=== PATIENT | male | born 1960 | race Caucasian/White ===

== ENCOUNTER 2017-10-01 19:03 | Inpatient (IN) | payer BC, OTHER ==
[~2017-10-01] VITALS: Ht 177.8 cm; Wt 97.2 kg
[2017-10-01] MEDS ORDERED: ONDANSETRON INJ 2 MG/ML 2 ML VIAL IV STA ×2 (19:23→21:18)
[2017-10-01] MEDS ORDERED: SODIUM CHLORIDE 0.9% 1000ML 1,000 ML IV STA (19:23)
[2017-10-01] MEDS: MoRPHine SULFATE 4 MG/ML 1 ML CARP\\VIAL IV PRN ×3 (19:41→23:24)
--- NOTE | 2017-10-01 19:48 | DIAGNOSTIC IMAGING REPORT ---
CHEST ONE VIEW PORTABLE CLINICAL HISTORY: Abdominal pain. COMPARISON STUDY: No previous studies for comparison. FINDINGS: A 1.7 cm calcification projecting over the superior aspect of the left humeral head may reflect calcific tendinitis of the left rotator cuff. There is no pneumothorax or pleural effusion. Mild left basilar opacity favors atelectasis. An azygos fissure is noted. There is no evidence for pulmonary edema. Cardiomediastinal silhouette is unremarkable. IMPRESSION: No acute cardiopulmonary findings. Electronically signed by: Rigo Mars M.D. 10/01/2017 7:47 PM Dictated Date/Time: 10/01/2017 7:46 PM
[2017-10-01 19:58] LABS: BASO % 0.1 %; BASO ABS # 0.01 K/uL (0-0.2); EOS % 0.1 %; EOS ABS # 0.02 K/uL (0-0.5); HEMATOCRIT 46.3 % (42-52); HEMOGLOBIN 16.1 g/dL (14.0-18.0); IG# 0.04 K/uL (0.00-0.02); LYMPH % 5.3 %; LYMPH ABS # 0.77 K/uL (1.2-3.4); MEAN CELL VOLUME 90.1 fL (80-100); MEAN CORPUSCULAR HEMOGLOBIN 31.3 pg (25-34); MEAN CORPUSCULAR HGB CONC 34.8 g/dl (32-36); MEAN PLATELET VOLUME 11.6 fL (7.4-10.4); MONO % 2.4 %; MONO ABS # 0.34 K/uL (0.11-0.59); NEUT % 91.8 %; NEUT ABS # 13.27 K/uL (1.4-6.5); PLATELET COUNT 173 K/uL (130-400); RED CELL DISTRIBUTION WIDTH CV 12.5 % (11.5-14.5); RED CELL DISTRIBUTION WIDTH SD 41.2 fL (36.4-46.3); WHITE BLOOD COUNT 14.45 K/uL (4.8-10.8)
[2017-10-01 20:15] LABS: ALBUMIN 4.5 gm/dl (3.4-5.0); ALKALINE PHOSPHATASE 131 U/L (45-117); ALT/SGPT 233 U/L (12-78); AST/SGOT 279 U/L (15-37); BLOOD UREA NITROGEN 17 mg/dl (7-18); CALCIUM 8.9 mg/dl (8.5-10.1); CARBON DIOXIDE 25 mmol/L (21-32); GLUCOSE 158 mg/dl (70-99); LIPASE 899 U/L (73-393); POTASSIUM 4.1 mmol/L (3.5-5.1); SODIUM 137 mmol/L (136-145); TOTAL PROTEIN 7.8 gm/dl (6.4-8.2)
--- NOTE | 2017-10-01 20:27 | DIAGNOSTIC IMAGING REPORT ---
CT OF THE ABDOMEN AND PELVIS WITHOUT CONTRAST CLINICAL HISTORY: Upper abdominal pain. COMPARISON STUDY: No previous studies for comparison. TECHNIQUE: Axial images of the abdomen and pelvis were obtained without IV contrast. Images were reviewed in the axial, sagittal, and coronal planes. A dose lowering technique was utilized adhering to the principles of ALARA. FINDINGS: Groundglass opacities within the lower lungs suggest atelectasis. Unenhanced images of the liver, spleen, adrenal glands and left kidney are normal. A 1.4 cm water attenuation right renal lesion is suboptimally assessed on this unenhanced exam but favors a cyst. 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 There are multiple gallstones within the gallbladder, several of which contain gas. There is minimal pericholecystic infiltration. There is no peripancreatic infiltration. There is no biliary or pancreatic ductal dilatation. Gas containing structures within the cystic duct and the common bile duct likely reflect a gas containing stones. A suspected gas containing diverticulum of the second portion the duodenum is noted. There is no evidence for a bowel obstruction. The appendix is normal. Caliber of small and large bowel is normal. There is no abdominal or pelvic lymphadenopathy. There are no suspicious osseous lesions. IMPRESSION: 1. Cholelithiasis with minimal pericholecystic infiltration. These findings raise the possibility of acute cholecystitis. 2. Small locules of gas within the cystic duct and common bile duct. The findings likely reflect gas within stones within the cystic duct and common bile duct. However, pneumobilia could appear similar. This could be correlated with obstructive liver function tests. 3. Suspected diverticulum of the second portion the duodenum. Electronically signed by: Rigo Mars M.D. 10/01/2017 8:26 PM Dictated Date/Time: 10/01/2017 8:10 PM
[2017-10-01] MEDS ORDERED: PIPERACILLIN/TAZOBACTAM 4.5 GM/100ML D5W IV STA (20:39)
--- NOTE | 2017-10-01 21:11 | DIAGNOSTIC IMAGING REPORT ---
ABDOMINAL ULTRASOUND, RIGHT UPPER QUADRANT HISTORY: Abdominal pain. COMPARISON: CT of the abdomen and pelvis October 01, 2017. FINDINGS: This exam is compromised by suboptimal penetration. No hepatic lesions are identified. There is no biliary ductal dilatation. Gallstones are noted within the gallbladder. No sonographic Garza sign was reported. Mild gallbladder wall thickening is noted. The wall measures 4 mm in thickness. There is no pericholecystic fluid. Pancreatic body is normal. Head and tail are obscured. There is no right hydronephrosis. IMPRESSION: 1. Cholelithiasis with mild gallbladder wall thickening. A hepatobiliary scan could be obtained as clinically indicated to evaluate for acute cholecystitis. 2. No biliary ductal dilatation. The gas/gas containing structures within the common bile duct shown on CT are not visualized on this exam due to suboptimal penetration. 3. Partially obscured pancreas. Electronically signed by: Rigo Mars M.D. 10/01/2017 9:09 PM Dictated Date/Time: 10/01/2017 9:06 PM
[2017-10-01] MEDS ORDERED: ATOR10TA82 PO (21:25)
--- NOTE | 2017-10-01 21:37 | EMERGENCY ROOM VISIT NOTE ---
History Report prepared by Slick: Deepak Rangel Under the Supervision of: Dr. Juan Richardson D.O. First contact with patient: 19:12 Chief Complaint: ABDOMINAL PAIN Stated Complaint: SEVERE ABD PAIN History of Present Illness The patient is a 56 year old male who presents to the Emergency Room with complaints of intermittent, severe, upper abdominal pain beginning two days ago. The patient states his symptoms started two days ago after he ate creamy lobster bisque soup. He reports he ate yesterday and did not show symptoms. The patient notes he was at work today and did not eat lunch. He states he had Chex mix and other snack foods. The patient reports his symptoms started shortly after eating, and he was taken to [facility]. He notes he felt fine by the time he got there, so he signed a paper to leave without treatment. The patient states he made an appointment to see his PCP tomorrow. He reports on his way home from the hospital, his symptoms started again. The patient notes it was exponentially worse, and he could not wait until tomorrow to be evaluated. He states lying on his right side and moving makes his symptoms worse. The patient reports the first two episodes made him feel like he was going to vomit, but he did not. He notes his current episode has lasted 2.5 hours, and it is continuous. The patient states he did vomit and experience chills. He denies a history of abdominal surgeries. The patient reports he has a history of high cholesterol. Source of History: patient Onset: two days ago Position: abdomen (upper) Symptom Intensity: severe Timing: intermittent Modifying Factors (Worsening): movement, other (lying on right side) Associated Symptoms: + chills, + vomiting Review of Systems See HPI for pertinent positives & negatives. A total of 10 systems reviewed and were otherwise negative. Past Medical & Surgical Medical Problems: (1) Hyperlipidemia Family History Patient reports no known family medical history. Social History Smoking Status: Never Smoker Marital Status: Housing Status: lives with significant other Occupation Status: employed Current/Historical Medications Scheduled Atorvastatin (Lipitor), 1 TAB PO DAILY Allergies Coded Allergies: No Known Allergies (Unverified , 10/01/17) Physical Exam Vital Signs Date Time Temp Pulse Resp B/P (MAP) Pulse Ox O2 Delivery O2 Flow Rate FiO2 10/01/17 20:29 37.0 10/01/17 19:08 36.3 82 20 146/73 95 Room Air Physical Exam CONSTITUTIONAL/VITAL SIGNS: Reviewed / noted above. GENERAL: Non-toxic in appearance. INTEGUMENTARY: Warm, dry, and [place]. HEAD: Normocephalic. EYES: without scleral icterus or trauma. ENT/OROPHARYNX: clear and moist. LYMPHADENOPATHY/NECK: Is supple without lymphadenopathy or meningismus. RESPIRATORY: Lungs clear and equal. CARDIOVASCULAR: Regular rate and rhythm. GI/ABDOMEN: Soft and tender to the RUQ and epigastric areas. No organomegaly or pulsatile mass. No rebound or guarding. Normal bowel sounds. EXTREMITIES: Warm and well perfused. BACK: No CVA tenderness. NEUROLOGICAL: Intact without focal deficits. PSYCHIATRIC: normal affect. MUSCULOSKELETAL: Normally developed with good muscle tone. Medical Decision & Procedures ER Provider Diagnostic Interpretation: Radiology results as stated below per my review and radiologist interpretation: ABDOMINAL ULTRASOUND, RIGHT UPPER QUADRANT HISTORY: Abdominal pain. COMPARISON: CT of the abdomen and pelvis October 01, 2017. FINDINGS: This exam is compromised by suboptimal penetration. No hepatic lesions are identified. There is no biliary ductal dilatation. Gallstones are noted within the gallbladder. No sonographic Garza sign was reported. Mild gallbladder wall thickening is noted. The wall measures 4 mm in thickness. There is no pericholecystic fluid. Pancreatic body is normal. Head and tail are obscured. There is no right hydronephrosis. IMPRESSION: 1. Cholelithiasis with mild gallbladder wall thickening. A hepatobiliary scan could be obtained as clinically indicated to evaluate for acute cholecystitis. 2. No biliary ductal dilatation. The gas/gas containing structures within the common bile duct shown on CT are not visualized on this exam due to suboptimal penetration. 3. Partially obscured pancreas. Electronically signed by: Rigo Mars M.D. 10/01/2017 9:09 PM Dictated Date/Time: 10/01/2017 9:06 PM CHEST ONE VIEW PORTABLE CLINICAL HISTORY: Abdominal pain. COMPARISON STUDY: No previous studies for comparison. FINDINGS: A 1.7 cm calcification projecting over the superior aspect of the left humeral head may reflect calcific tendinitis of the left rotator cuff. There is no pneumothorax or pleural effusion. Mild left basilar opacity favors atelectasis. An azygos fissure is noted. There is no evidence for pulmonary edema. Cardiomediastinal silhouette is unremarkable. IMPRESSION: No acute cardiopulmonary findings. Electronically signed by: Rigo Mars M.D. 10/01/2017 7:47 PM Dictated Date/Time: 10/01/2017 7:[address] OF THE ABDOMEN AND PELVIS WITHOUT CONTRAST CLINICAL HISTORY: Upper abdominal pain. COMPARISON STUDY: No previous studies for comparison. TECHNIQUE: Axial images of the abdomen and pelvis were obtained without IV contrast. Images were reviewed in the axial, sagittal, and coronal planes. A dose lowering technique was utilized adhering to the principles of ALARA. FINDINGS: Groundglass opacities within the lower lungs suggest atelectasis. Unenhanced images of the liver, spleen, adrenal glands and left kidney are normal. A 1.4 cm water attenuation right renal lesion is suboptimally assessed on this unenhanced exam but favors a cyst. 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 There are multiple gallstones within the gallbladder, several of which contain gas. There is minimal pericholecystic infiltration. There is no peripancreatic infiltration. There is no biliary or pancreatic ductal dilatation. Gas containing structures within the cystic duct and the common bile duct likely reflect a gas containing stones. A suspected gas containing diverticulum of the second portion the duodenum is noted. There is no evidence for a bowel obstruction. The appendix is normal. Caliber of small and large bowel is normal. There is no abdominal or pelvic lymphadenopathy. There are no suspicious osseous lesions. IMPRESSION: 1. Cholelithiasis with minimal pericholecystic infiltration. These findings raise the possibility of acute cholecystitis. 2. Small locules of gas within the cystic duct and common bile duct. The findings likely reflect gas within stones within the cystic duct and common bile duct. However, pneumobilia could appear similar. This could be correlated with obstructive liver function tests. 3. Suspected diverticulum of the second portion the duodenum. Electronically signed by: Rigo Mars M.D. 10/01/2017 8:26 PM Dictated Date/Time: 10/01/2017 8:10 PM Laboratory Results 10/01/17 19:35 Red Blood Count 5.14, Mean Corpuscular Volume 90.1, Mean Corpuscular Hemoglobin 31.3, Mean Corpuscular Hemoglobin Concent 34.8, Mean Platelet Volume 11.6, Neutrophils (%) (Auto) 91.8, Lymphocytes (%) (Auto) 5.3, Monocytes (%) (Auto) 2.4, Eosinophils (%) (Auto) 0.1, Basophils (%) (Auto) 0.1, Neutrophils # (Auto) 13.27, Lymphocytes # (Auto) 0.77, Monocytes # (Auto) 0.34, Eosinophils # (Auto) 0.02, Basophils # (Auto) 0.01 10/01/17 19:35 Test 10/01/17 19:35 10/01/17 21:26 White Blood Count 14.45 K/uL (4.8-10.8) Red Blood Count 5.14 M/uL (4.7-6.1) Hemoglobin 16.1 g/dL (14.0-18.0) Hematocrit 46.3 % (42-52) Mean Corpuscular Volume 90.1 fL (80-100) Mean Corpuscular Hemoglobin 31.3 pg (25-34) Mean Corpuscular Hemoglobin Concent 34.8 g/dl (32-36) Platelet Count 173 K/uL (130-400) Mean Platelet Volume 11.6 fL (7.4-10.4) Neutrophils (%) (Auto) 91.8 % Lymphocytes (%) (Auto) 5.3 % Monocytes (%) (Auto) 2.4 % Eosinophils (%) (Auto) 0.1 % Basophils (%) (Auto) 0.1 % Neutrophils # (Auto) 13.27 K/uL (1.4-6.5) Lymphocytes # (Auto) 0.77 K/uL (1.2-3.4) Monocytes # (Auto) 0.34 K/uL (0.11-0.59) Eosinophils # (Auto) 0.02 K/uL (0-0.5) Basophils # (Auto) 0.01 K/uL (0-0.2) RDW Standard Deviation 41.2 fL (36.4-46.3) RDW Coefficient of Variation 12.5 % (11.5-14.5) Immature Granulocyte % (Auto) 0.3 % Immature Granulocyte # (Auto) 0.04 K/uL (0.00-0.02) Anion Gap 9.0 mmol/L (3-11) Estimated GFR () 85.3 Estimated GFR (Non- 73.6 BUN/Creatinine Ratio 15.1 (10-20) Calcium Level 8.9 mg/dl (8.5-10.1) Total Bilirubin 1.8 mg/dl (0.2-1) Direct Bilirubin mg/dl (0-0.2) Aspartate Amino Transf (AST/SGOT) 279 U/L (15-37) Alanine Aminotransferase (ALT/SGPT) 233 U/L (12-78) Alkaline Phosphatase 131 U/L (45-117) Total Protein 7.8 gm/dl (6.4-8.2) Albumin 4.5 gm/dl (3.4-5.0) Lipase 899 U/L (73-393) Chemistry Specimen Hemolysis Laboratory results as stated above per my review. Medications Administered Medications (Trade) Dose Ordered Sig/Sahara Route Start Time Stop Time Status Last Admin Dose Admin Sodium Chloride 1,000 ml @ 999 mls/hr Q1H1M STAT IV 10/01/17 19:23 10/01/17 20:23 DC 10/01/17 19:41 999 MLS/HR Ondansetron HCl (Zofran Inj) 4 mg NOW STAT IV 10/01/17 19:23 10/01/17 19:25 DC 10/01/17 19:41 4 MG Morphine Sulfate (MoRPHine SULFATE INJ) 4 mg Q1H PRN IV 10/01/17 19:30 10/15/17 19:29 10/01/17 21:15 4 MG Piperacillin Sod/ Tazobactam Sod (Zosyn Iv) 4.5 gm NOW STAT IV 10/01/17 20:39 10/01/17 20:40 DC 10/01/17 21:21 4.5 GM Ondansetron HCl (Zofran Inj) 4 mg NOW STAT IV 10/01/17 21:18 10/01/17 21:19 DC 10/01/17 21:32 4 MG ED Course 1917: Previous medical records were reviewed. The patient was evaluated in room A02. A complete history and physical examination was performed. 1922: Ordered Ondansetron HCl 4mg IV, Sodium Chloride 1000 ml @ 999 mls/hr IV 1929: Ordered Morphine Sulfate 4mg IV 2038: Ordered Piperacillin Sod/Tazobactam Sod 4.5gm IV 2111: I [facility] the [facility] The patient will be evaluated for further management and care. 2113: On reevaluation, the patient is resting comfortably. I discussed the results and findings with him. He verbalized agreement of the treatment plan. 2117: Ordered Ondansetron HCl 4mg IV Medical Decision Differential considered: pancreatitis, hepatitis, or acute cholecystitis, AAA, UTI, pyelonephritis, kidney stones, appendicitis, diverticulitis, shingles, bowel obstruction mesenteric ischemia, intussusception, hernia, testicular torsion This is a 48-year-old male who presents to the ED with a chief complaint of right upper quadrant abdominal discomfort as well as nausea and vomiting. The patient states that he initially had some symptoms of couple of days ago after eating some lobster brisk. He reports that yesterday he felt okay. Today around 4:30 PM he developed right upper quadrant abdominal pain as well as nausea and vomiting. His pain is persistent since that time. He has some chills and riders on my evaluation as well as significant right upper quadrant tenderness and epigastric tenderness. A CT scan of the abdomen and pelvis reveals acute cholecystitis and pneumobilia. A chest x-ray did not show acute process. An ultrasound revealed some mild thickening of the gallbladder wall. The white blood cell count was 14.45. AST and ALT are elevated at 203 100 range. Alkaline phosphatase is 131. Lipase is 899. Total bilirubin is 1.8. The patient was treated with IV fluids, IV morphine, IV Zofran as well as IV Zosyn. I spoke with the hospice, who will see the patient for further inpatient evaluation and care. Medication Reconcilliation Current Medication List: was personally reviewed by me Blood Pressure Screening Patient's blood pressure: Elevated blood pressure Monitored by hospitalist. Consults Time Called: 2107 Consulting Physician: Dr. Weber [facility] Returned Call: 2111 I discussed the patient's case [facility] The patient will be evaluated for further management and care. Impression Primary Impression: Acute cholangitis Scribe Attestation The scribe's documentation has been prepared under my direction and personally reviewed by me in its entirety. I confirm that the note above accurately reflects all work, treatment, procedures, and medical decision making performed by me. Departure Information Dispostion Being Evaluated By Hospitalist Patient Instructions My [facility]
[2017-10-01] MEDS ORDERED: SODIUM CHLORIDE 0.9% 1000ML 1,000 ML IV ONE (23:00)
--- NOTE | 2017-10-01 23:00 | NUR ---
A: ASSESSED IN ED. A/O. AT BEDSIDE. PT ORIENTED TO CALL [facility]. SIGNED CODE W[employer] AND FALL AGREEMENT FORMS. REPORTS 3/10 CRAMPY ABD PAIN. DENIES N/V. SEE EMR FOR COMPLETE ADM ASSESSMENT. CALL [facility] IN REACH. TO BE ADMITTED TO SURGICAL UNIT. 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
[2017-10-01 23:14] VITALS: Ht 177.8 cm; Wt 97.2 kg
[2017-10-01] MEDS: ACETAMINOPHEN 500 MG TAB PO PRN (23:24)
--- NOTE | 2017-10-01 23:44 | Medical Consult ---
Consultation Date of Consultation: Oct 01, 2017. Attending Physician: Reason for Consultation: Biliary colic, cholelithiasis, elevated LFT's History of Present Illness Patient presents to the ED due to RUQ pain associated with nausea and one episode of vomiting. States his pain began on chris thad while he was at a family gathering. States they were eating an gu[place]ian meal which caused him to have the worst abdominal pain of his life localized in the RUQ. He reports nausea and one episode of vomiting with this incident. States an ambulance was called but by the time it arrived his symptoms had faded. They still took him to [facility] where he had a workup leading to a gallbladder etiology. At this time there was no evidence of acute cholecystitis and no elevated LFTs. He decided that he would like to go home and follow-up with this problem on his own time. Since he has had a couple of episodes of RUQ pain but they have passed. This morning he reports RUQ pain even worse than the pain he felt on chris thad. No nausea or vomiting with this episode. Reports fever and chills with this episode. At this point he decided it was time to get this evaluated further and came to the ED here. Denies back pain or shoulder pain. States the pain Starts in his RUQ and radiates slightly towards the epigastric area. Denies trouble urinating. States his stool has been loose lately but denies trouble moving his bowels. Denies any previous abdominal surgeries. Denies use of blood thinning or anticoagulant medications. PMHx significant for GERD. He has not tried to take any OTC medications for relief. Patient reports mild pain at this time and says he just asked the nurse for more morphine. Denies nausea at this time and has recently been given Zofran. Past Medical/Surgical History Medical Problems: (1) Acute cholangitis Status: Acute Family History FH: cancer FATHER (prostate CA age 79) BROTHER (colon CA age 50) Hypertension FATHER Social History Smoking Status: Former Smoker Marital Status: Housing Status: lives with significant other Occupation Status: employed Allergies Coded Allergies: No Known Allergies (Unverified , 10/01/17) Current Inpatient Medications Current Inpatient Medications Medications (Trade) Dose Ordered Sig/Sahara Route Start Time Stop Time Status Last Admin Dose Admin Morphine Sulfate (MoRPHine SULFATE INJ) 4 mg Q1H PRN IV 10/01/17 19:30 10/15/17 19:29 10/01/17 21:15 4 MG Pantoprazole Sodium 40 mg/ Syringe 10 ml @ 5 mls/min DAILY@11 IV 10/01/17 23:00 10/31/17 22:59 UNV Sodium Chloride 1,000 ml @ 125 mls/hr Q8H IV 10/01/17 23:00 10/31/17 22:59 UNV Ondansetron HCl (Zofran Inj) 4 mg Q6H PRN IV 10/01/17 23:00 10/31/17 22:59 Sodium Chloride 1,000 ml @ 999 mls/hr Q1H1M ONCE IV 10/01/17 23:00 10/02/17 00:00 10/01/17 23:12 999 MLS/HR Acetaminophen (Tylenol Tab) 500 mg Q6H PRN PO 10/01/17 23:00 10/31/17 22:59 Miscellaneous Information (Pharmacy Consult) 1 ea NOW STAT N/A 10/01/17 23:01 10/01/17 23:02 UNV Morphine Sulfate (MoRPHine SULFATE INJ) 2 mg Q4 PRN IV 10/01/17 23:15 10/15/17 23:14 UNV Metoclopramide HCl (Reglan Inj) 10 mg Q6H PRN IV 10/01/17 23:15 10/31/17 23:14 UNV Review of Systems Constitutional: + fever, + chills, No sweats, No weight loss Respiratory: No shortness of breath Cardiovascular: No chest pain Abdomen: + pain (RUQ), + nausea, + vomiting (with first episode of biliary colic), + problem reported (loose stools), No constipation Genitourinary - Male: No dysuria Integumentary: No rash, No color change Physical Exam Date Time Temp Pulse Resp B/P (MAP) Pulse Ox O2 Delivery O2 Flow Rate FiO2 10/01/17 22:40 132 10/01/17 22:37 37.7 134 14 120/61 93 Room Air 10/01/17 20:29 37.0 10/01/17 19:08 36.3 82 20 146/73 95 Room Air General Appearance: WD/WN, no apparent distress Head: normocephalic, atraumatic Eyes: normal inspection ENT: hearing grossly normal Neck: trachea midline Respiratory/Chest: no respiratory distress, no accessory muscle use Abdomen/GI: normal bowel sounds, no organomegaly, no pulsatile mass, + tenderness (RUQ radiating to epigastric area), + distended (RUQ) Neurologic/Psych: alert, normal mood/affect, oriented x 3 Skin: normal color, warm/dry, no rash Laboratory Results Last 24 Hours Test 10/01/17 19:35 10/01/17 21:26 10/01/17 22:58 10/01/17 23:07 White Blood Count 14.45 K/uL Red Blood Count 5.14 M/uL Hemoglobin 16.1 g/dL Hematocrit 46.3 % Mean Corpuscular Volume 90.1 fL Mean Corpuscular Hemoglobin 31.3 pg Mean Corpuscular Hemoglobin Concent 34.8 g/dl Platelet Count 173 K/uL Mean Platelet Volume 11.6 fL Neutrophils (%) (Auto) 91.8 % Lymphocytes (%) (Auto) 5.3 % Monocytes (%) (Auto) 2.4 % Eosinophils (%) (Auto) 0.1 % Basophils (%) (Auto) 0.1 % Neutrophils # (Auto) 13.27 K/uL Lymphocytes # (Auto) 0.77 K/uL Monocytes # (Auto) 0.34 K/uL Eosinophils # (Auto) 0.02 K/uL Basophils # (Auto) 0.01 K/uL RDW Standard Deviation 41.2 fL RDW Coefficient of Variation 12.5 % Immature Granulocyte % (Auto) 0.3 % Immature Granulocyte # (Auto) 0.04 K/uL Sodium Level 137 mmol/L Potassium Level 4.1 mmol/L Chloride Level 103 mmol/L Carbon Dioxide Level 25 mmol/L Anion Gap 9.0 mmol/L Blood Urea Nitrogen 17 mg/dl Creatinine 1.10 mg/dl Estimated GFR () 85.3 Estimated GFR (Non- 73.6 BUN/Creatinine Ratio 15.1 Random Glucose 158 mg/dl Calcium Level 8.9 mg/dl Total Bilirubin 1.8 mg/dl Direct Bilirubin mg/dl Aspartate Amino Transf (AST/SGOT) 279 U/L Alanine Aminotransferase (ALT/SGPT) 233 U/L Alkaline Phosphatase 131 U/L Total Protein 7.8 gm/dl Albumin 4.5 gm/dl Lipase 899 U/L Chemistry Specimen Hemolysis C-Reactive Protein < 0.29 mg/dl Assessment & Plan Cholelithiasis with mild gallbladder wall thickening and gas in the cystic duct and CBD, LFTs elevated suggesting stones in the cystic duct and CBD. Pain controlled, no N/V at this time. Admit per hospitalist service, NPO after midnight, IV Abx, IV fluids, IV zofran PRN for nausea, IV morphine PRN for pain. Recheck LFTs in AM - If LFTs do not improve, will consider GI consult for possible MRCP/ERCP. Findings discussed with Dr. Vinson. Surgery will continue to follow. Please contact with questions or concerns.
[2017-10-01] MEDS ORDERED: PIPERACILL/TAZOBAC CONSULT ACTIVE PRN (23:47)
--- NOTE | 2017-10-01 23:48 | History and Physical ---
History & Physical Date & Time of Service: Oct 01, 2017 at 23:11 Chief Complaint: Severe Abd Pain Primary Care Physician: Alexx Ronquillo M.D.(PAULA) History of Present Illness Source: patient, spouse, hospital records Pt is 56 y/o M with PMH dyslipidemia presented to ER with c/o abdominal pain. Pt states 2 days ago started with upper abdominal pain after eating lobster bisque. States pain lasted several hours then resolved. Ate yesterday and no abdominal pain. States today ate chex mix later developed some upper abdominal pain and RUQ pain described as "squeezing" with associated nausea and several episodes of vomiting. Reports this occurred while at work today and he was taken to [facility], once there his pain resolved and he denied evaluation. Pt states returned home and developed upper abdominal pain again with nausea and vomiting. Pt reports loose BM today. Takes omeprazole daily as reports hx RUQ "spasms" several years ago that were evaluated and pt reports no significant findings. Denies hx abdominal surgery. Denies known fever, hematemesis, melena, hematochezia, CORCORAN, syncope, vision changes, neck pain, CP, SOB, orthopnea, palpitations, cough, sore throat, choking, rhinorrhea, extremity weakness, extremity edema, rashes, urinary symptoms. Seen in ER. Initially afebrile, and Pulse 82. Pt then becomes febrile and tachy. WBC: 14, AST: 279, ALT: 233, Alk Phos: 131, Total bili: 1.8, Lipase: 899. Pt given zosyn, zofran, and morphine. Past Medical/Surgical History Medical Problems: (1) Hyperlipidemia Status: Chronic Surgical Problems: (1) Hx of colonoscopy Permanent Comment: 2013 - adenomatous polyp, diverticulosis - Dr Verma 2008- adenomatous polyp Status: Resolved (2) Hx of tonsillectomy Status: Resolved Family History FH: cancer FATHER (prostate CA age 79) BROTHER (colon CA age 50) Hypertension FATHER Social History Smoking Status: Former Smoker (quit 1983, smoked 1ppd x 13 years) Smokeless Tobacco Use: No Alcohol Use: 1 beer/1 glass of wine daily Drug Use: none Marital Status: Occupational Status: employed Allergies Coded Allergies: No Known Allergies (Unverified , 10/01/17) Home Medications Scheduled Atorvastatin (Lipitor), 1 TAB PO DAILY Review of Systems Constitutional: No weight loss Eyes: No worsening of vision, No eye pain, No redness ENT: No unusual epistaxis, No nasal symptoms, No sore throat Respiratory: No cough, No sputum, No wheezing, No shortness of breath, No dyspnea on exertion, No dyspnea at rest Cardiovascular: No chest pain, No orthopnea, No PND Abdomen: + problem reported (see HPI) Genitourinary - Male: No hematuria, No dysuria, No urinary frequency, No urinary urgency, No urinary hesitancy, No urinary retention Neurologic: No weakness, No numbness/tingling, No vertigo Endocrine: No excessive thirst, No excessive urination Hematologic / Lymphatic: No abnormal bleeding/bruising, No clotting problems, No night sweats Integumentary: No rash, No itch Physical Exam Vital Signs Date Time Temp Pulse Resp B/P (MAP) Pulse Ox O2 Delivery O2 Flow Rate FiO2 10/01/17 22:40 132 10/01/17 22:37 37.7 134 14 120/61 93 Room Air 10/01/17 20:29 37.0 10/01/17 19:08 36.3 82 20 146/73 95 Room Air General Appearance: WD/WN, + mild distress (pt lying supine in bed in position of comfort) Head: normocephalic, atraumatic Eyes: normal inspection, PERRL, sclerae normal ENT: hearing grossly normal, pharynx normal, + pertinent finding (dry mucous membranes) Neck: supple, no JVD, trachea midline Respiratory/Chest: chest non-tender, lungs clear, no respiratory distress, no accessory muscle use Cardiovascular: regular rate, rhythm, no murmur Abdomen/GI: normal bowel sounds, soft, + pertinent finding (+tenderness to palpation RUQ, epigastric, LUQ without guarding or rebound) Back: no CVA tenderness Extremities/Musculoskelatal: normal inspection, normal capillary refill, no pedal edema, normal range of motion Neurologic/Psych: alert, oriented x 3 Skin: normal color, warm/dry Diagnostics Laboratory Results Last 24 Hours Test 10/01/17 19:35 10/01/17 21:26 10/01/17 22:58 10/01/17 23:07 White Blood Count 14.45 K/uL Red Blood Count 5.14 M/uL Hemoglobin 16.1 g/dL Hematocrit 46.3 % Mean Corpuscular Volume 90.1 fL Mean Corpuscular Hemoglobin 31.3 pg Mean Corpuscular Hemoglobin Concent 34.8 g/dl Platelet Count 173 K/uL Mean Platelet Volume 11.6 fL Neutrophils (%) (Auto) 91.8 % Lymphocytes (%) (Auto) 5.3 % Monocytes (%) (Auto) 2.4 % Eosinophils (%) (Auto) 0.1 % Basophils (%) (Auto) 0.1 % Neutrophils # (Auto) 13.27 K/uL Lymphocytes # (Auto) 0.77 K/uL Monocytes # (Auto) 0.34 K/uL Eosinophils # (Auto) 0.02 K/uL Basophils # (Auto) 0.01 K/uL RDW Standard Deviation 41.2 fL RDW Coefficient of Variation 12.5 % Immature Granulocyte % (Auto) 0.3 % Immature Granulocyte # (Auto) 0.04 K/uL Sodium Level 137 mmol/L Potassium Level 4.1 mmol/L Chloride Level 103 mmol/L Carbon Dioxide Level 25 mmol/L Anion Gap 9.0 mmol/L Blood Urea Nitrogen 17 mg/dl Creatinine 1.10 mg/dl Estimated GFR () 85.3 Estimated GFR (Non- 73.6 BUN/Creatinine Ratio 15.1 Random Glucose 158 mg/dl Calcium Level 8.9 mg/dl Total Bilirubin 1.8 mg/dl Direct Bilirubin mg/dl Aspartate Amino Transf (AST/SGOT) 279 U/L Alanine Aminotransferase (ALT/SGPT) 233 U/L Alkaline Phosphatase 131 U/L Total Protein 7.8 gm/dl Albumin 4.5 gm/dl Lipase 899 U/L Chemistry Specimen Hemolysis C-Reactive Protein < 0.29 mg/dl Diagnostic Radiology CXR: IMPRESSION: No acute cardiopulmonary findings. U/S GALLBLADDER IMPRESSION: 1. Cholelithiasis with mild gallbladder wall thickening. A hepatobiliary scan could be obtained as clinically indicated to evaluate for acute cholecystitis. 2. No biliary ductal dilatation. The gas/gas containing structures within the common bile duct shown on CT are not visualized on this exam due to suboptimal penetration. 3. Partially obscured pancreas. CT ABD/PELVIS: IMPRESSION: 1. Cholelithiasis with minimal pericholecystic infiltration. These findings raise the possibility of acute cholecystitis. 2. Small locules of gas within the cystic duct and common bile duct. The findings likely reflect gas within stones within the cystic duct and common bile duct. However, pneumobilia could appear similar. This could be correlated with obstructive liver function tests. 3. Suspected diverticulum of the second portion the duodenum. Impression Assessment and Plan SEPSIS SECONDARY TO CHOLECYSTITIS Leukocytosis, transaminitis, febrile. Pt presented to ER with c/o upper abdominal and RUQ pain. Initially afebrile. Pt became febrile (37.7C), tachycardic (134) while in ER. WBC: 14. Total bili: 1.8, AST: 279, ALT:233, Alk Phos: 131, Lipase: 131. U/S RUQ: cholelithiasis with gallbladder wall thickening , no ductal dilation. CT ABD/PELVIS: Cholelithiasis with minimal pericholecystic infiltration. Small locules of gas within the cystic duct and common bile duct. He was treated with morphine, zofran, zosyn. -lactic acid added -blood cultures added -npo -zosyn -IVF -zofran prn nausea -morphine prn pain -PPI IV -general surgery consult - aware and will be in to see pt -CBC, CMP, liver profile, lipase in am DVT PROPHYLAXIS -SCDs DISPOSITION -admit tele -Full Code -Follows with Dr Ronquillo for routine care Pt was seen with Dr Weber. See addendum ATTENDING ADDENDUM care coordinated with SAIRA Contreras please refer to her notes for full details, I agree with her notes patient seen and examined, records reviewed by myself as well on exam, patient seen resting in bed, alert, not in distress reports RUQ pain is improving denies chest pain, dyspnea, dizziness no other symptoms VS noted and reviewed oriented x 3, not in distress, speaks in sentences with no effort nor accessory muscle use normal rate, regular rhythm, no murmurs clear breath sounds bilaterally non distended, soft,non distended, (+) RUQ tenderness no bipedal edema, erythema, warmth no neuro deficits WBC 14k Total ag 1.8 AST/ALT 279/233 CT abdomen: cholelithiasis, GB thickening ASSESSMENT/PLAN> SEPSIS, POSSIBLE ACUTE CHOLANGITIS, CHOLECYSTITIS - ff up cultures ff up lactic acid levels - Gen Surg and GI consulted - NPO, IV NSS empiric Zosyn IV PRN Morphine SINUS TACHYCARDIA - likely from fever, underlying infection, pain, dehydration - management as noted above other diagnoses and plan of care as per SAIRA Contreras's notes Uziel Weber MD Level of Care Telemetry Resuscitation Status FULL RESUSCITATION VTE Prophylaxis VTE Risk Assessment Done? Y/N: Yes Risk Level: Moderate Given or contraindicated: SCD's Additional Copies To Alexx Ronquillo M.D. (HUGH)
[2017-10-01 23:52] LABS: PTT PATIENT 24.3 SECONDS (21.0-31.0)
[2017-10-02] VITALS (9 sets, daily range): BP systolic 101–143; BP diastolic 60–87; PULSE 83–143; TEMP 36.6–38.4; O2SAT 90–97
--- NOTE | 2017-10-02 00:10 | NUR ---
PT ARRIVED VIA LITTER FROM ED TO ROOM 230-1. AMBULATED FROM LITTER TO BED W/ STEADY GAIT. DENIES PAIN, SOB, N/V AT THIS TIME. VSS, SEE EMR. MONITOR LEADS APPLIED, GOWN CHANGED, PT WEIGHED. NO DISTRESS EVIDENT. ORIENTED TO CALL ENNIS, LIGHT/BED CONTROLS. SIDE RAILS UP, BED IN LOWEST POSITION. CARE ASSUMED BY PRIMARY RNADELINE.
[2017-10-02] MEDS ORDERED: SODIUM CHLORIDE 0.9% 1000ML 1,000 ML IV SCH (00:30)
[2017-10-02] MEDS: PIPERACILL/TAZOBAC IV 3.375 GM in DEXTROSE 5% 100ML IV SCH ×3 (01:24→15:09)
[2017-10-02] MEDS ORDERED: SODIUM CHLORIDE 0.9% 500ML 500 ML IV SCH (01:30)
[2017-10-02] MEDS: PANTOprazole INJ 40 MG in SYRINGE 0 ML IV SCH ×3 (02:36→19:50)
[2017-10-02] MEDS: MoRPHine SULFATE 2 MG/ML CARP IV PRN ×2 (03:38→07:44)
--- NOTE | 2017-10-02 04:00 | NUR ---
resting in bed,independent in room,previously medicated for pain,call velasquez in reach,will continue to monitor
[2017-10-02 05:42] LABS: BASO % 0.1 %; BASO ABS # 0.01 K/uL (0-0.2); EOS % 0.1 %; EOS ABS # 0.01 K/uL (0-0.5); HEMATOCRIT 38.5 % (42-52); HEMOGLOBIN 13.3 g/dL (14.0-18.0); IG# 0.06 K/uL (0.00-0.02); LYMPH % 2.8 %; LYMPH ABS # 0.48 K/uL (1.2-3.4); MEAN CORPUSCULAR HEMOGLOBIN 31.1 pg (25-34); MEAN CORPUSCULAR HGB CONC 34.5 g/dl (32-36); MONO % 5.5 %; MONO ABS # 0.95 K/uL (0.11-0.59); NEUT % 91.2 %; NEUT ABS # 15.72 K/uL (1.4-6.5); PLATELET COUNT 149 K/uL (130-400); RED CELL DISTRIBUTION WIDTH CV 12.9 % (11.5-14.5); RED CELL DISTRIBUTION WIDTH SD 41.8 fL (36.4-46.3); WHITE BLOOD COUNT 17.23 K/uL (4.8-10.8)
[2017-10-02] MEDS: ONDANSETRON INJ 2 MG/ML 2 ML VIAL IV PRN (06:00)
[2017-10-02 06:19] LABS: ALBUMIN 3.2 gm/dl (3.4-5.0); CALCIUM 7.8 mg/dl (8.5-10.1); CREATININE 1.47 mg/dl (0.60-1.40); POTASSIUM 4.1 mmol/L (3.5-5.1)
[2017-10-02 06:25] LABS: TOTAL PROTEIN 5.9 gm/dl (6.4-8.2)
[2017-10-02] MEDS: METOCLOPRAMIDE HCL INJ 5 MG/ML 2 ML VIAL IV PRN (07:44)
[2017-10-02] MEDS: LACTATED RINGER'S 1000ML 1,000 ML IV SCH ×4 (07:47→19:50)
[2017-10-02] MEDS ORDERED: INDOMETHACIN 50 MG SUPP PR ONE (09:15)
--- NOTE | 2017-10-02 09:25 | NUR ---
Pt resting in bed comfortably. States he has nausea and pain in right abdomen. Medicated with PRN Morphine and Reglan. Sinus tach 105 on monitor. Lungs clear on RA. Refer to EMR for per assessment nurse and vitals. Call velasquez within reach. Will continue to monitor
--- NOTE | 2017-10-02 09:26 | Surgery Progress Note ---
Surgery Progress Note Date of Service Oct 02, 2017. Subjective still having some pain but much improved since admission. still some mild nausea. Objective Vital Signs: Date Time Temp Pulse Resp B/P (MAP) Pulse Ox O2 Delivery O2 Flow Rate FiO2 10/02/17 08:00 37.1 119 18 129/87 (101) 93 Room Air 10/02/17 04:03 37.4 18 101/60 (74) 93 10/02/17 04:00 Room Air 10/02/17 00:12 38.4 143 18 118/69 (85) 93 Room Air 10/01/17 23:57 37.5 136 14 111/74 92 10/01/17 23:14 Room Air 10/01/17 22:40 132 10/01/17 22:37 37.7 134 14 120/61 93 Room Air 10/01/17 20:29 37.0 10/01/17 19:08 36.3 82 20 146/73 95 Room Air General Appearance: no apparent distress Respiratory/Chest: no respiratory distress, no accessory muscle use Abdomen: soft, + tenderness Extremities: no pedal edema Laboratory Results: Results Past 24 Hours Test 10/01/17 19:35 10/01/17 21:26 10/01/17 23:31 10/02/17 05:27 Range/Units White Blood Count 14.45 17.23 4.8-10.8 K/uL Red Blood Count 5.14 4.28 4.7-6.1 M/uL Hemoglobin 16.1 13.3 14.0-18.0 g/dL Hematocrit 46.3 38.5 42-52 % Mean Corpuscular Volume 90.1 90.0 80-100 fL Mean Corpuscular Hemoglobin 31.3 31.1 25-34 pg Mean Corpuscular Hemoglobin Concent 34.8 34.5 32-36 g/dl Platelet Count 173 149 130-400 K/uL Mean Platelet Volume 11.6 11.0 7.4-10.4 fL Neutrophils (%) (Auto) 91.8 91.2 % Lymphocytes (%) (Auto) 5.3 2.8 % Monocytes (%) (Auto) 2.4 5.5 % Eosinophils (%) (Auto) 0.1 0.1 % Basophils (%) (Auto) 0.1 0.1 % Neutrophils # (Auto) 13.27 15.72 1.4-6.5 K/uL Lymphocytes # (Auto) 0.77 0.48 1.2-3.4 K/uL Monocytes # (Auto) 0.34 0.95 0.11-0.59 K/uL Eosinophils # (Auto) 0.02 0.01 0-0.5 K/uL Basophils # (Auto) 0.01 0.01 0-0.2 K/uL RDW Standard Deviation 41.2 41.8 36.4-46.3 fL RDW Coefficient of Variation 12.5 12.9 11.5-14.5 % Immature Granulocyte % (Auto) 0.3 0.3 % Immature Granulocyte # (Auto) 0.04 0.06 0.00-0.02 K/uL Sodium Level 137 140 136-145 mmol/L Potassium Level 4.1 4.1 3.5-5.1 mmol/L Chloride Level 103 108 98-107 mmol/L Carbon Dioxide Level 25 26 21-32 mmol/L Anion Gap 9.0 6.0 3-11 mmol/L Blood Urea Nitrogen 17 15 7-18 mg/dl Creatinine 1.10 1.47 0.60-1.40 mg/dl Estimated GFR () 85.3 60.1 Estimated GFR (Non- 73.6 51.8 BUN/Creatinine Ratio 15.1 10.5 10-20 Random Glucose 158 127 70-99 mg/dl Calcium Level 8.9 7.8 8.5-10.1 mg/dl Total Bilirubin 1.8 2.9 0.2-1 mg/dl Direct Bilirubin 2.1 0-0.2 mg/dl Aspartate Amino Transf (AST/SGOT) 279 443 15-37 U/L Alanine Aminotransferase (ALT/SGPT) 233 578 12-78 U/L Alkaline Phosphatase 131 102 45-117 U/L Total Protein 7.8 5.9 6.4-8.2 gm/dl Albumin 4.5 3.2 3.4-5.0 gm/dl Lipase 899 2914 73-393 U/L Chemistry Specimen Hemolysis C-Reactive Protein < 0.29 0-0.29 mg/dl Prothrombin Time 10.7 9.0-12.0 SECONDS Prothromb Time International Ratio 1.0 0.9-1.1 Activated Partial Thromboplast Time 24.3 21.0-31.0 SECONDS Partial Thromboplastin Ratio 0.9 Lactic Acid Level 1.7 0.4-2.0 mmol/L Est Creatinine Clear Calc Drug Dose 64.1 ml/min Globulin 2.7 2.5-4.0 gm/dl Albumin/Globulin Ratio 1.2 0.9-2 Microbiology Results 10/01/17 Blood Culture, Received Pending 10/01/17 Blood Culture, Received Pending Assessment & Plan 10/02/17 clinically improving LFT's increased today. GI on board/planning ERCP if ERCP competed today, will plan lap leeanna tomorrow discussed options/risks ( bleeding/infection/DVT/PE/OK/injury to another organ such as bile ducts or bowel etc...) questions anwered
[2017-10-02] MEDS ORDERED: NAPR1TAB9 PO (10:19)
[2017-10-02] MEDS ORDERED: OMEP40CA41 PO (10:19)
[2017-10-02] MEDS ORDERED: DIPH25CA65 PO (10:19)
[2017-10-02] MEDS ORDERED: OMEP20CA9 PO (10:21)
[2017-10-02] MEDS ORDERED: LPT/40 PO (10:22)
--- NOTE | 2017-10-02 10:33 | Progress Note ---
Medicine Progress Note Date & Time of Visit: Oct 02, 2017 at 10:23. Subjective 56 yo M with intermittent RUQ pain and episodes of vomiting admitted for acute cholecystitis. Reports pain this morning is controlled with the morphine. RUQ pain persists. Some fever overnight. Objective Last 8 Hrs Date Time Temp Pulse Resp B/P (MAP) Pulse Ox O2 Delivery O2 Flow Rate FiO2 10/02/17 08:00 37.1 119 18 129/87 (101) 93 Room Air 10/02/17 08:00 93 Room Air 10/02/17 04:03 37.4 18 101/60 (74) 93 10/02/17 04:00 Room Air Physical Exam: GEN: WNWD, in no acute distress, alert and appropriate, able to move around the bed with ease. Not ill-appearing. HEENT: NC/AT, pupils are round and equal bilaterally, normal sclerae, MMM CARDIO: reg rate, S1/2 heard without m/g/r LUNGS: CTA bilaterally, no crackles, rales or wheezes, good diaphragmatic excursion ABD: soft, RUQ tenderness, non-distended, no rebound or guarding, +BS EXTREMITY: RP and DP palpable 2+ bilat, no LE swelling or edema, extremities are warm and well-perfused NEURO: CN 2-12 grossly intact, no gross focal deficits. MUSC: 5/5 strength throughout, no gross focal deficits SKIN: warm and dry Laboratory Results: 10/02/17 05:27 Red Blood Count 4.28, Mean Corpuscular Volume 90.0, Mean Corpuscular Hemoglobin 31.1, Mean Corpuscular Hemoglobin Concent 34.5, Mean Platelet Volume 11.0, Neutrophils (%) (Auto) 91.2, Lymphocytes (%) (Auto) 2.8, Monocytes (%) (Auto) 5.5, Eosinophils (%) (Auto) 0.1, Basophils (%) (Auto) 0.1, Neutrophils # (Auto) 15.72, Lymphocytes # (Auto) 0.48, Monocytes # (Auto) 0.95, Eosinophils # (Auto) 0.01, Basophils # (Auto) 0.01 10/02/17 05:27 Test 10/01/17 19:35 10/01/17 21:26 10/01/17 23:31 10/02/17 05:27 Chemistry Specimen Hemolysis C-Reactive Protein < 0.29 mg/dl (0-0.29) Prothrombin Time 10.7 SECONDS (9.0-12.0) Prothromb Time International Ratio 1.0 (0.9-1.1) Activated Partial Thromboplast Time 24.3 SECONDS (21.0-31.0) Partial Thromboplastin Ratio 0.9 Lactic Acid Level 1.7 mmol/L (0.4-2.0) White Blood Count 17.23 K/uL (4.8-10.8) Red Blood Count 4.28 M/uL (4.7-6.1) Hemoglobin 13.3 g/dL (14.0-18.0) Hematocrit 38.5 % (42-52) Mean Corpuscular Volume 90.0 fL (80-100) Mean Corpuscular Hemoglobin 31.1 pg (25-34) Mean Corpuscular Hemoglobin Concent 34.5 g/dl (32-36) Platelet Count 149 K/uL (130-400) Mean Platelet Volume 11.0 fL (7.4-10.4) Neutrophils (%) (Auto) 91.2 % Lymphocytes (%) (Auto) 2.8 % Monocytes (%) (Auto) 5.5 % Eosinophils (%) (Auto) 0.1 % Basophils (%) (Auto) 0.1 % Neutrophils # (Auto) 15.72 K/uL (1.4-6.5) Lymphocytes # (Auto) 0.48 K/uL (1.2-3.4) Monocytes # (Auto) 0.95 K/uL (0.11-0.59) Eosinophils # (Auto) 0.01 K/uL (0-0.5) Basophils # (Auto) 0.01 K/uL (0-0.2) RDW Standard Deviation 41.8 fL (36.4-46.3) RDW Coefficient of Variation 12.9 % (11.5-14.5) Immature Granulocyte % (Auto) 0.3 % Immature Granulocyte # (Auto) 0.06 K/uL (0.00-0.02) Anion Gap 6.0 mmol/L (3-11) Est Creatinine Clear Calc Drug Dose 64.1 ml/min Estimated GFR () 60.1 Estimated GFR (Non- 51.8 BUN/Creatinine Ratio 10.5 (10-20) Calcium Level 7.8 mg/dl (8.5-10.1) Total Bilirubin 2.9 mg/dl (0.2-1) Direct Bilirubin 2.1 mg/dl (0-0.2) Aspartate Amino Transf (AST/SGOT) 443 U/L (15-37) Alanine Aminotransferase (ALT/SGPT) 578 U/L (12-78) Alkaline Phosphatase 102 U/L (45-117) Total Protein 5.9 gm/dl (6.4-8.2) Albumin 3.2 gm/dl (3.4-5.0) Globulin 2.7 gm/dl (2.5-4.0) Albumin/Globulin Ratio 1.2 (0.9-2) Lipase 2914 U/L (73-393) Date/Time Source Procedure Growth Status 10/01/17 23:31 Blood Blood Culture Pending Received Last 24 Hours Test 10/01/17 19:35 10/01/17 21:26 10/01/17 23:31 10/02/17 05:27 White Blood Count 14.45 K/uL 17.23 K/uL Red Blood Count 5.14 M/uL 4.28 M/uL Hemoglobin 16.1 g/dL 13.3 g/dL Hematocrit 46.3 % 38.5 % Mean Corpuscular Volume 90.1 fL 90.0 fL Mean Corpuscular Hemoglobin 31.3 pg 31.1 pg Mean Corpuscular Hemoglobin Concent 34.8 g/dl 34.5 g/dl Platelet Count 173 K/uL 149 K/uL Mean Platelet Volume 11.6 fL 11.0 fL Neutrophils (%) (Auto) 91.8 % 91.2 % Lymphocytes (%) (Auto) 5.3 % 2.8 % Monocytes (%) (Auto) 2.4 % 5.5 % Eosinophils (%) (Auto) 0.1 % 0.1 % Basophils (%) (Auto) 0.1 % 0.1 % Neutrophils # (Auto) 13.27 K/uL 15.72 K/uL Lymphocytes # (Auto) 0.77 K/uL 0.48 K/uL Monocytes # (Auto) 0.34 K/uL 0.95 K/uL Eosinophils # (Auto) 0.02 K/uL 0.01 K/uL Basophils # (Auto) 0.01 K/uL 0.01 K/uL RDW Standard Deviation 41.2 fL 41.8 fL RDW Coefficient of Variation 12.5 % 12.9 % Immature Granulocyte % (Auto) 0.3 % 0.3 % Immature Granulocyte # (Auto) 0.04 K/uL 0.06 K/uL Sodium Level 137 mmol/L 140 mmol/L Potassium Level 4.1 mmol/L 4.1 mmol/L Chloride Level 103 mmol/L 108 mmol/L Carbon Dioxide Level 25 mmol/L 26 mmol/L Anion Gap 9.0 mmol/L 6.0 mmol/L Blood Urea Nitrogen 17 mg/dl 15 mg/dl Creatinine 1.10 mg/dl 1.47 mg/dl Estimated GFR () 85.3 60.1 Estimated GFR (Non- 73.6 51.8 BUN/Creatinine Ratio 15.1 10.5 Random Glucose 158 mg/dl 127 mg/dl Calcium Level 8.9 mg/dl 7.8 mg/dl Total Bilirubin 1.8 mg/dl 2.9 mg/dl Direct Bilirubin mg/dl 2.1 mg/dl Aspartate Amino Transf (AST/SGOT) 279 U/L 443 U/L Alanine Aminotransferase (ALT/SGPT) 233 U/L 578 U/L Alkaline Phosphatase 131 U/L 102 U/L Total Protein 7.8 gm/dl 5.9 gm/dl Albumin 4.5 gm/dl 3.2 gm/dl Lipase 899 U/L 2914 U/L Chemistry Specimen Hemolysis C-Reactive Protein < 0.29 mg/dl Prothrombin Time 10.7 SECONDS Prothromb Time International Ratio 1.0 Activated Partial Thromboplast Time 24.3 SECONDS Partial Thromboplastin Ratio 0.9 Lactic Acid Level 1.7 mmol/L Est Creatinine Clear Calc Drug Dose 64.1 ml/min Globulin 2.7 gm/dl Albumin/Globulin Ratio 1.2 Date/Time Source Procedure Growth Status 10/01/17 23:31 Blood Blood Culture Pending Received 10/01/17 23:31 Blood Blood Culture Pending Received Assessment & Plan 56 yo M with intermittent RUQ pain and episodes of vomiting admitted for acute cholecystitis. Reports pain this morning is controlled with the morphine. RUQ pain persists. Some fever overnight. 1. Sepsis 2/2 acute cholecystitis-General Surg consulted and Dr. Vinson prefers an ERCP per GI first which is reported to happen today. Worsening transaminitis on labs, fever overnight, pain controlled with current medications. Pt is NPO. Cont Zosyn and IVF. Cont Morphine and Zofran PRN. Lactate normal. Awaiting definitive source control. Considering cholecystectomy in am. 2. PARAMJIT 2/2 sepsis/dehydration-IVF, cont to monitor PRP. 3. Leukocytosis 2/2 infection. 4. Hyperlipidemia-cont Lipitor 5. Chronic L shoulder rotator cuff tendonitis-pt has chronic insomnia from chronic pain in his shoulder and takes Benadryl and Naprosyn 220mg PO x 1 tab every night for pain control and to help him sleep. Benadryl was ordered PRN and no NSAIDs in setting of upcoming procedure. 6. GERD-cont PPI DVT PROPHYLAXIS: SCDs in setting of upcoming procedures Full Code Dispo: telemetry DO Babita Burton Hospitalist Consultants: General Surgery-[facility] Current Inpatient Medications: Current Inpatient Medications Medications (Trade) Dose Ordered Sig/[place] Route Start Time Stop Time Status Last Admin Dose Admin Pantoprazole Sodium 40 mg/ Syringe 10 ml @ 5 mls/min DAILY@11 IV 10/01/17 23:00 10/31/17 22:59 10/02/17 02:36 5 MLS/MIN Ondansetron HCl (Zofran Inj) 4 mg Q6H PRN IV 10/01/17 23:00 10/31/17 22:59 10/02/17 06:00 4 MG Acetaminophen (Tylenol Tab) 500 mg Q6H PRN PO 10/01/17 23:00 10/31/17 22:59 10/01/17 23:24 500 MG Piperacillin Sod/ Tazobactam Sod (Consult) 1 ea DAILY PRN N/A 10/01/17 23:47 10/31/17 23:46 Morphine Sulfate (MoRPHine SULFATE INJ) 2 mg Q4 PRN IV 10/01/17 23:15 10/15/17 23:14 10/02/17 07:44 2 MG Metoclopramide HCl (Reglan Inj) 10 mg Q6H PRN IV 10/01/17 23:15 10/31/17 23:14 10/02/17 07:44 10 MG Piperacillin Sod/ Tazobactam Sod 3.375 gm/Dextrose 115 ml @ 28.75 mls/ hr Q8H IV 10/02/17 00:00 10/12/17 00:00 10/02/17 07:47 28.75 MLS/HR Lactated Ringer's 1,000 ml @ 200 mls/hr Q5H IV 10/02/17 07:00 11/01/17 06:59 10/02/17 07:47 200 MLS/HR
[2017-10-02] MEDS ORDERED: ONDANSETRON INJ 2 MG/ML 2 ML VIAL ONE (10:40)
[2017-10-02] MEDS ORDERED: LIDOCAINE HCL 2% 2 ML VIAL (20MG/ML) ONE (10:40)
[2017-10-02] MEDS ORDERED: FENTANYL CITRATE INJ 50 MCG/1 ML 2 ML VIAL ONE (10:40)
[2017-10-02] MEDS ORDERED: ROCURONIUM BROMIDE 10 MG/ML 5 ML VIAL IV ONE (10:40)
[2017-10-02] MEDS ORDERED: DEXAMETHASONE SOD INJ 4 MG/ML VIAL ONE (10:40)
[2017-10-02] MEDS ORDERED: SUCCINYLCHOLINE CHLORIDE 20 MG/ML 10 ML VIAL IV ONE (10:40)
[2017-10-02] MEDS ORDERED: PROPOFOL IV EMULSION 10 MG/ML 20 ML VIAL IV ONE (10:40)
--- NOTE | 2017-10-02 11:01 | Gastrointestinal Consultation ---
Gastrointestinal Consultation Date of Consultation: Oct 02, 2017 Attending Physician: Lisbet Padgett Consulting Physician: Carmine Interiano Reason for Consultation: Possible acute cholangitis History of Present Illness Patient is a 56 year old male w PMHx of dyslipidemia, benign colon polyps who presented to ED w c/o RUQ abd pain that's been present since . He was having lobster bisque [place], had sharp RUQ pain that's radiating towards epigastric w associated mild nausea. [place] better but then yesterday went to work, and the pain started again, severe enough for coworkers to call ambulance to take him to [facility]. He refused medical care and had no workup at [place]. Went home and last night pain started again, this time he had vomiting. He had chills last night as well. Upon eval in [facility], VS initially stable but then became febrile and tachycardic. WBC 14K, LFTs up: T bili 1.8, AST 279, ALT 233, AP 131. Lipase 899. This morning LFTs and Lipase increased. He reports urine turned dark. Abd pain still present. His imaging studies w u/s and CT abd/pelvis concerning for cholelithiasis with acute cholecystitis, and possible gallstones in cystic duct and CBD. He had been started on Zosyn, IVF resuscitation, kept NPO. Surgery service saw him overnight , plan for possible cholecystectomy once ERCP completed. Past Medical/Surgical History Medical Problems: (1) Acute cholangitis Status: Acute Past Medical History: See above Past Surgical History: Tonsillectomy Family History FH: cancer FATHER (prostate CA age 79) BROTHER (colon CA age 50) Hypertension FATHER Social History Smoking Status: Former Smoker (quit 1983, smoked 1ppd x 13 years) Alcohol Use: none Drug Use: none Marital Status: Housing Status: lives with significant other Occupation Status: employed Allergies Coded Allergies: No Known Allergies (Unverified , 10/01/17) Current Medications Home Meds and Scripts Medications Dose Route/Sig Max Daily Dose Days Date Category Lipitor (Atorvastatin) 40 Mg Tab 40 Mg PO DAILY 10/02/17 Reported Prilosec (Omeprazole) 20 Mg Cap 1 Cap PO DAILY 30 10/02/17 Reported Aleve (Naproxen) 220 Mg Tab 220 Mg PO HS 12/27/17 Reported Benadryl Allergy (Diphenhydramine Hcl) 25 Mg Cap 1 Cap PO HS 30 10/02/17 Reported Review of Systems Constitutional: + fever, + chills Respiratory: No cough, No shortness of breath Cardiac: No chest pain Abdomen: + see HPI, + pain, + nausea, + dark urine, No GI bleeding Skin: No rash, No itch, No jaundice Physical Exam Date Time Temp Pulse Resp B/P (MAP) Pulse Ox O2 Delivery O2 Flow Rate FiO2 10/02/17 08:00 37.1 119 18 129/87 (101) 93 Room Air 10/02/17 08:00 93 Room Air 10/02/17 04:03 37.4 18 101/60 (74) 93 10/02/17 04:00 Room Air 10/02/17 00:12 38.4 143 18 118/69 (85) 93 Room Air 10/01/17 23:57 37.5 136 14 111/74 92 10/01/17 23:14 Room Air 10/01/17 22:40 132 10/01/17 22:37 37.7 134 14 120/61 93 Room Air 10/01/17 20:29 37.0 10/01/17 19:08 36.3 82 20 146/73 95 Room Air General Appearance: WD/WN, no apparent distress, + obese Eyes: normal inspection, PERRL, EOMI Neck: supple, trachea midline Respiratory/Chest: normal breath sounds, no respiratory distress, no accessory muscle use Cardiovascular: regular rate, rhythm, no gallop Abdomen: normal bowel sounds, soft, + tenderness (RUQ) Extremities: normal inspection, no pedal edema, no calf tenderness Neurologic/Psych: alert, normal mood/affect, oriented x 3 Skin: normal color, no jaundice, no rash Laboratory Results Last 24 Hours Test 10/01/17 19:35 10/01/17 21:26 10/01/17 23:31 10/02/17 05:27 White Blood Count 14.45 K/uL 17.23 K/uL Red Blood Count 5.14 M/uL 4.28 M/uL Hemoglobin 16.1 g/dL 13.3 g/dL Hematocrit 46.3 % 38.5 % Mean Corpuscular Volume 90.1 fL 90.0 fL Mean Corpuscular Hemoglobin 31.3 pg 31.1 pg Mean Corpuscular Hemoglobin Concent 34.8 g/dl 34.5 g/dl Platelet Count 173 K/uL 149 K/uL Mean Platelet Volume 11.6 fL 11.0 fL Neutrophils (%) (Auto) 91.8 % 91.2 % Lymphocytes (%) (Auto) 5.3 % 2.8 % Monocytes (%) (Auto) 2.4 % 5.5 % Eosinophils (%) (Auto) 0.1 % 0.1 % Basophils (%) (Auto) 0.1 % 0.1 % Neutrophils # (Auto) 13.27 K/uL 15.72 K/uL Lymphocytes # (Auto) 0.77 K/uL 0.48 K/uL Monocytes # (Auto) 0.34 K/uL 0.95 K/uL Eosinophils # (Auto) 0.02 K/uL 0.01 K/uL Basophils # (Auto) 0.01 K/uL 0.01 K/uL RDW Standard Deviation 41.2 fL 41.8 fL RDW Coefficient of Variation 12.5 % 12.9 % Immature Granulocyte % (Auto) 0.3 % 0.3 % Immature Granulocyte # (Auto) 0.04 K/uL 0.06 K/uL Sodium Level 137 mmol/L 140 mmol/L Potassium Level 4.1 mmol/L 4.1 mmol/L Chloride Level 103 mmol/L 108 mmol/L Carbon Dioxide Level 25 mmol/L 26 mmol/L Anion Gap 9.0 mmol/L 6.0 mmol/L Blood Urea Nitrogen 17 mg/dl 15 mg/dl Creatinine 1.10 mg/dl 1.47 mg/dl Estimated GFR () 85.3 60.1 Estimated GFR (Non- 73.6 51.8 BUN/Creatinine Ratio 15.1 10.5 Random Glucose 158 mg/dl 127 mg/dl Calcium Level 8.9 mg/dl 7.8 mg/dl Total Bilirubin 1.8 mg/dl 2.9 mg/dl Direct Bilirubin mg/dl 2.1 mg/dl Aspartate Amino Transf (AST/SGOT) 279 U/L 443 U/L Alanine Aminotransferase (ALT/SGPT) 233 U/L 578 U/L Alkaline Phosphatase 131 U/L 102 U/L Total Protein 7.8 gm/dl 5.9 gm/dl Albumin 4.5 gm/dl 3.2 gm/dl Lipase 899 U/L 2914 U/L Chemistry Specimen Hemolysis C-Reactive Protein < 0.29 mg/dl Prothrombin Time 10.7 SECONDS Prothromb Time International Ratio 1.0 Activated Partial Thromboplast Time 24.3 SECONDS Partial Thromboplastin Ratio 0.9 Lactic Acid Level 1.7 mmol/L Est Creatinine Clear Calc Drug Dose 64.1 ml/min Globulin 2.7 gm/dl Albumin/Globulin Ratio 1.2 Impression Patient is a 56 year old male presented w RUQ abd pain, n/v, fever, chills. Labs showed elevated LFTs, Lipase, CT scan & u/s concerning for cholelithiasis w acute cholecystitis and likely gallstone pancreatitis. Plan - NPO - LR @ 200ml/hr - PPI IV BID - ERCP this morning by Dr. Interiano; Indomethacin suppository premed ordered. - Surgery consulted, defer to them timing of cholecystectomy following ERCP - Monitor LFTs and Lipase ATTESTATION: I have performed a history and physical examination of this patient and reviewed the electronic record. Specifically, on physical examination there is moderate RUQ tenderness. I have discussed the case with DORINA Valdes. The above note reflects my findings, conclusions, and recommendations. Carmine Interiano MD
--- NOTE | 2017-10-02 11:15 | NUR ---
a/id: resumed care of patient. full head to toe assessment completed - see emr for details. alert and oriented. c/o RUQ pain - OR staff at bedside to take patient for procedure. iv intact - LR infusing per order. spouse at bedside.
[2017-10-02] MEDS ORDERED: ATROPINE SULFATE 0.1 MG/ML 5ML SYR IV PRN (11:30)
[2017-10-02] MEDS ORDERED: EpHEDrine SULFATE INJ 50 MG/ML AMP IV PRN (11:30)
[2017-10-02] MEDS ORDERED: ONDANSETRON INJ 2 MG/ML 2 ML VIAL IV PRN (11:30)
[2017-10-02] MEDS ORDERED: FENTANYL CITRATE INJ 50 MCG/1 ML 2 ML VIAL IV PRN (11:30)
[2017-10-02] MEDS ORDERED: PHENYLEPHRINE 100MCG/ML 5ML SYR ONE (12:48)
--- NOTE | 2017-10-02 13:32 | DIAGNOSTIC IMAGING REPORT ---
ERCP BILIARY DUCTAL CLINICAL HISTORY: DUCT EXPLORATION COMPARISON STUDY: Abdomen and pelvis CT 10/01/2017. FLUOROSCOPY TIME: 2 minutes and 58 seconds. 4 fluoroscopic spot images. FINDINGS: An endoscope was passed into the second portion of the duodenum and the ampulla was cannulated. Contrast was injected into the common bile duct which is normal in caliber. No definite filling defects seen within the common bile duct. No significant intrahepatic bile duct dilatation. IMPRESSION: Fluoroscopy provided for ERCP area Electronically signed by: Patrick Wilson M.D. 10/02/2017 1:31 PM Dictated Date/Time: 10/02/2017 1:30 PM
--- NOTE | 2017-10-02 13:42 | GI REPORT ---
Procedure Date: 10/02/2017 11:34 AM Procedure: ERCP Indications: Suspected ascending cholangitis, Gallstone associated acute pancreatitis, Preop exam: Laparoscopic cholecystectomy Medicines: General Anesthesia, Indomethicin 100 mg rectal Complications: No immediate complications. Estimated blood loss: None Estimated Blood Loss: Estimated blood loss: none. Procedure: Pre-Anesthesia Assessment: - Prior to the procedure, a History and Physical was performed, and patient medications, allergies and sensitivities were reviewed. The patient's tolerance of previous anesthesia was reviewed. - ASA Grade Assessment: II - A patient with mild systemic disease. After obtaining informed consent, the scope was passed under direct vision. Throughout the procedure, the patient's blood pressure, pulse, and oxygen saturations were monitored continuously. The Scope was introduced through the mouth, and advanced to the duodenum and used to inject contrast into the bile duct. The ERCP was accomplished with ease. The patient tolerated the procedure well. Findings: The cylindrical mixer film was normal. The esophagus was successfully intubated under direct vision without detailed examination of the pharynx, larynx, and associated structures, and upper GI tract. The upper GI tract was grossly normal. The major papilla was on the rim of a diverticulum. Superficial cannulation of and contrast injection into the bile duct was accomplished with the Learn[employer] FS Omni 35 sphincterotome. The lower third of the main bile duct contained filling defect(s) thought to be sludge. A [employer] Acrobat 0.035 inch guidewire was passed into the biliary tree. Initially, there was some resistance at the level of the filling defect, but after repositioning of the sphincterotome the wire could be advanced into the proximal duct. An 8 mm biliary sphincterotomy was made with a monofilament traction (standard) sphincterotome using ERBE electrocautery. There was no initial bleeding. To discover objects, the biliary tree was swept with an 8.5 mm balloon starting at the bifurcation. Sludge and pus were swept from the duct. At the conclusion of the balloon sweeps a small amount ot oozing was noted at the papillotomy site. The papillotomy was tamponaded with the balloon inflated for three minutes. The oozing ceased. The total fluoroscopy exposure time was 2 minutes and 58 seconds. Impression: - The major papilla was on the rim of a diverticulum. - The examination was suspicious for sludge. - A biliary sphincterotomy was performed. - The biliary tree was swept and pus and sludge were found. Recommendation: - [facility]. - Surgical consultation for consideration of cholecystectomy tomorrow. Carmine Interiano M.D. Carmine Interiano MD 10/02/2017 1:41:45 PM This report has been signed electronically. Note Initiated On: 10/02/2017 11:34 AM I attest to the content of the Intraoperative Record and orders documented therein, exceptions below
--- NOTE | 2017-10-02 13:44 | [facility] Post Operative Brief Note ---
Immediate Operative Summary Operative Date Oct 02, 2017. Pre-Operative Diagnosis Cholangitis Post-Operative Diagnosis Cholangitis and Cholelithiasis Procedure(s) Performed Endoscopic Retrograde Cholangiopancreatogram Surgeon Dr. Interiano Ditcher Operator Surgeon(s) None Estimated Blood Loss None Findings See Provation report. Choledocholithiasis and pus swept from the CBD. Specimens None per surgeon Drains None Anesthesia General Complication(s) None Disposition Recovery Room / PACU
--- NOTE | 2017-10-02 14:09 | Anesthesiology Progress Note ---
Anesthesia Post Op Note Date & Time Oct 02, 2017 at 14:08 Vital Signs Pain Intensity: 0 Vital Signs Past 12 Hours Date Time Temp Pulse Resp B/P (MAP) Pulse Ox O2 Delivery O2 Flow Rate FiO2 10/02/17 14:00 98 15 129/84 94 Nasal Cannula 2 10/02/17 13:50 36.6 95 12 142/83 94 Nasal Cannula 2 10/02/17 13:40 103 13 148/79 93 Nasal Cannula 2 10/02/17 13:30 106 12 123/80 95 Oxymask 10 10/02/17 13:22 36.8 112 10 122/70 97 Oxymask 10 10/02/17 11:42 37.4 108 18 117/81 (93) 91 Room Air 10/02/17 11:15 Room Air 10/02/17 11:10 37.8 109 22 129/85 (100) 90 Room Air 10/02/17 08:00 37.1 119 18 129/87 (101) 93 Room Air 10/02/17 08:00 93 Room Air 10/02/17 04:03 37.4 18 101/60 (74) 93 10/02/17 04:00 Room Air Notes Mental Status: alert / awake / arousable, participated in evaluation Pt Amnestic to Procedure: Yes Nausea / Vomiting: adequately controlled Pain: adequately controlled Airway Patency, RR, SpO2: stable & adequate BP & HR: stable & adequate Hydration State: stable & adequate Anesthetic Complications: no major complications apparent
--- NOTE | 2017-10-02 14:15 | NUR ---
a: pt back from or. awake, alert and oriented. denies pain. vital signs stable. spouse at bedside. pt npo. call velasquez within reach.
--- NOTE | 2017-10-02 15:00 | NUR ---
pt constantly clearing throat, states he has thick secretions that he "feels he is drowning." Dr. Padgett made aware and stated to Offer water/ice chips.
--- NOTE | 2017-10-02 16:00 | NUR ---
A: NO ACUTE CHANGES TO PATIENT ASSESSMENT. ALERT AND ORIENTED. DENIES PAIN. SR ON MONITOR. IV INTACT. CALL ENNIS WITHIN REACH.
--- NOTE | 2017-10-02 20:00 | NUR ---
A: Pt. is A&OX4, denies any complaints. Telemetry intact showing NSR in 70s at this time. Denies CP or palpitations. On 2 L NC with no SOB. Order to wean O2. Will attempt to wean and recheck shortly. Voiding in toilet without difficulty. 20g IV removed from right wrist d/t leaking and tenderness at insertion site. LR infusing through other IV site, which is 22 g in right hand. Will obtain other IV access above wrist since patient is scheduled to go to the OR. tomorrow. Tolerating clear liquid diet. Will be NPO after midnight. Pt. is aware and knows not to eat or drink anything after that time. SCDs on at this time. See EMR for full head to toe assessment. Call velasquez within reach, all needs addressed and denies pain. Will continue to closely monitor.
--- NOTE | 2017-10-02 20:53 | NUR ---
Notified Dr. America Mosqueda of positive blood culture result: gram negative bacilli in 2nd bottle. Documented in appropriate intervention Addendum: 10/02/17 at 2354 by Digna Nation RN Error in notifying wrong doctor for result. Realized this patient is a [facility] patient and discussed with Dr. Weber, dental office receptionist 7p-7a for [facility].
--- NOTE | 2017-10-02 20:56 | NUR ---
Pt. tolerating weaning off O2. He is currently 94% on RA. Will keep him on room air at this time and continue to monitor
[2017-10-02] MEDS ORDERED: GUAIFENESIN 200 MG TAB PO PRN (23:45)
[2017-10-03] VITALS (13 sets, daily range): BP systolic 143–187; BP diastolic 72–111; PULSE 77–92; TEMP 37–37.7; O2SAT 88–97
--- NOTE | 2017-10-03 | NUR ---
A: Assessment mostly unchanged, except patient states he is progressively developing a productive cough. Sputum not witnessed by staff. Pt. states he swallowed sputum. Dr. Weber notified and order obtained for 200 [address] q[address]h pr[address] Weber asked about patient current resp. status: he appears comfortable breathing in bed on room air with no acute resp. distress. Pt. verbalizes difficulty taking deep breaths. Lungs clear to auscultation with no adventitious breath sounds heard. Telemetry intact showing NSR in 80s. LR infusing through right hand 22 g at 200 mL/hr. See EMR for full head to toe assessment. Call velasquez within reach, all needs addressed. Will continue to closely monitor
[2017-10-03] MEDS: PIPERACILL/TAZOBAC IV 3.375 GM in DEXTROSE 5% 100ML IV SCH ×3 (00:06→20:14)
[2017-10-03] MEDS: LACTATED RINGER'S 1000ML 1,000 ML IV SCH ×3 (00:06→10:18)
--- NOTE | 2017-10-03 04:05 | NUR ---
A: Pt. has not slept. Is awake in room at this time. VSS, telemetry showing NSR in 90s. Denies CP or palpitations. Denies SOB at this time, but O2 sats were 88% on RA at 0345 check. Patient placed on 2 L NC. NPO after midnight at this time for OR. See EMR for full head to toe assessment details. Call velasquez within reach, able to ring for assistance appropriately. Will continue to closely monitor.
[2017-10-03] MEDS: MoRPHine SULFATE 2 MG/ML CARP IV PRN ×4 (05:03→23:43)
[2017-10-03] MEDS: ONDANSETRON INJ 2 MG/ML 2 ML VIAL IV PRN (05:03)
[2017-10-03] MEDS: METOCLOPRAMIDE HCL INJ 5 MG/ML 2 ML VIAL IV PRN (05:07)
--- NOTE | 2017-10-03 05:11 | NUR ---
Pt. began to complain of sudden onset nausea and abd pain in mid epigastric region, 6/10 in intensity. Given IV morphine for pain and reglan for nausea. Originally pulled IV zofran from [facility], but patient verbalized that zofran does not work for him. I returned the zofran to the [facility] and obtained IV reglan. Once scanned, i administered as ordered. Will continue to closely monitor patient
[2017-10-03 06:00] LABS: BASO % 0.1 %; BASO ABS # 0.01 K/uL (0-0.2); HEMATOCRIT 37.8 % (42-52); HEMOGLOBIN 12.9 g/dL (14.0-18.0); IG# 0.03 K/uL (0.00-0.02); LYMPH % 6.2 %; LYMPH ABS # 0.87 K/uL (1.2-3.4); MEAN CELL VOLUME 90.4 fL (80-100); MEAN CORPUSCULAR HEMOGLOBIN 30.9 pg (25-34); MEAN CORPUSCULAR HGB CONC 34.1 g/dl (32-36); MEAN PLATELET VOLUME 11.5 fL (7.4-10.4); MONO % 8.3 %; MONO ABS # 1.16 K/uL (0.11-0.59); NEUT % 85.2 %; NEUT ABS # 11.87 K/uL (1.4-6.5); PLATELET COUNT 129 K/uL (130-400); RED CELL DISTRIBUTION WIDTH CV 13.1 % (11.5-14.5); RED CELL DISTRIBUTION WIDTH SD 42.7 fL (36.4-46.3); WHITE BLOOD COUNT 13.94 K/uL (4.8-10.8)
--- NOTE | 2017-10-03 06:05 | NUR ---
Notified Dr. Weber of patient's uncontrolled abd pain, not relieved by IV morphine. Awaiting response.
[2017-10-03 06:47] LABS: ALBUMIN 3.1 gm/dl (3.4-5.0); CALCIUM 8.3 mg/dl (8.5-10.1); CREATININE 1.24 mg/dl (0.60-1.40); POTASSIUM 3.4 mmol/L (3.5-5.1); TOTAL PROTEIN 6.1 gm/dl (6.4-8.2)
[2017-10-03] MEDS: HYDROmorphone INJ 0.5 MG/0.5 ML SYR IV PRN ×2 (07:00→12:01)
[2017-10-03] MEDS: ATORVASTATIN 40 MG TAB PO SCH (07:51)
[2017-10-03] MEDS: PANTOprazole INJ 40 MG in SYRINGE 0 ML IV SCH ×2 (07:51→20:59)
--- NOTE | 2017-10-03 08:11 | Surgery Progress Note ---
Surgery Progress Note Date of Service Oct 03, 2017. Subjective Post OP Day: HD #2 + bowel movement, + flatus, + nausea (Mild this morning, but states it has passed), No vomiting Patient lying in bed s/p ERCP yesterday, reports he was pain free saturday night and all of . States he is having some RUQ pain at present, but reports he was just given another dose of dilaudid. Looking forward to getting this problem taken care of. Objective Vital Signs: Date Time Temp Pulse Resp B/P (MAP) Pulse Ox O2 Delivery O2 Flow Rate FiO2 10/03/17 07:26 37.0 84 16 162/92 (115) 90 10/03/17 04:32 92 Nasal Cannula 2.0 10/03/17 04:00 Nasal Cannula 2.0 10/03/17 03:35 37.0 92 18 143/82 (102) 88 Room Air 10/03/17 00:00 97 10/02/17 23:30 37.1 83 18 143/79 (100) 91 Room Air 10/02/17 20:58 94 Room Air 10/02/17 20:00 97 Nasal Cannula 2.0 10/02/17 19:43 36.6 87 18 132/84 (100) 97 Nasal Cannula 2.0 10/02/17 16:00 Room Air 10/02/17 15:36 37.2 90 18 137/85 (102) 96 Nasal Cannula 2.0 10/02/17 14:00 98 15 129/84 94 Nasal Cannula 2 10/02/17 13:50 36.6 95 12 142/83 94 Nasal Cannula 2 10/02/17 13:40 103 13 148/79 93 Nasal Cannula 2 10/02/17 13:30 106 12 123/80 95 Oxymask 10 10/02/17 13:22 36.8 112 10 122/70 97 Oxymask 10 10/02/17 11:42 37.4 108 18 117/81 (93) 91 Room Air 10/02/17 11:15 Room Air 10/02/17 11:10 37.8 109 22 129/85 (100) 90 Room Air General Appearance: WD/WN, no apparent distress Head: normocephalic, atraumatic Neck: trachea midline Respiratory/Chest: no respiratory distress, no accessory muscle use Abdomen: normal bowel sounds, no pulsatile mass, + distended (RUQ), + guarding , + tenderness (RUQ) Laboratory Results: Results Past 24 Hours Test 10/03/17 05:35 Range/Units White Blood Count 13.94 4.8-10.8 K/uL Red Blood Count 4.18 4.7-6.1 M/uL Hemoglobin 12.9 14.0-18.0 g/dL Hematocrit 37.8 42-52 % Mean Corpuscular Volume 90.4 80-100 fL Mean Corpuscular Hemoglobin 30.9 25-34 pg Mean Corpuscular Hemoglobin Concent 34.1 32-36 g/dl Platelet Count 129 130-400 K/uL Mean Platelet Volume 11.5 7.4-10.4 fL Neutrophils (%) (Auto) 85.2 % Lymphocytes (%) (Auto) 6.2 % Monocytes (%) (Auto) 8.3 % Eosinophils (%) (Auto) 0.0 % Basophils (%) (Auto) 0.1 % Neutrophils # (Auto) 11.87 1.4-6.5 K/uL Lymphocytes # (Auto) 0.87 1.2-3.4 K/uL Monocytes # (Auto) 1.16 0.11-0.59 K/uL Eosinophils # (Auto) 0.00 0-0.5 K/uL Basophils # (Auto) 0.01 0-0.2 K/uL RDW Standard Deviation 42.7 36.4-46.3 fL RDW Coefficient of Variation 13.1 11.5-14.5 % Immature Granulocyte % (Auto) 0.2 % Immature Granulocyte # (Auto) 0.03 0.00-0.02 K/uL Sodium Level 139 136-145 mmol/L Potassium Level 3.4 3.5-5.1 mmol/L Chloride Level 107 98-107 mmol/L Carbon Dioxide Level 25 21-32 mmol/L Anion Gap 7.0 3-11 mmol/L Blood Urea Nitrogen 13 7-18 mg/dl Creatinine 1.24 0.60-1.40 mg/dl Est Creatinine Clear Calc Drug Dose 77.3 ml/min Estimated GFR () 73.8 Estimated GFR (Non- 63.7 BUN/Creatinine Ratio 10.6 10-20 Random Glucose 117 70-99 mg/dl Calcium Level 8.3 8.5-10.1 mg/dl Magnesium Level 1.8 1.8-2.4 mg/dl Total Bilirubin 4.0 0.2-1 mg/dl Direct Bilirubin 3.0 0-0.2 mg/dl Aspartate Amino Transf (AST/SGOT) 124 15-37 U/L Alanine Aminotransferase (ALT/SGPT) 341 12-78 U/L Alkaline Phosphatase 95 45-117 U/L Total Protein 6.1 6.4-8.2 gm/dl Albumin 3.1 3.4-5.0 gm/dl Globulin 3.0 2.5-4.0 gm/dl Albumin/Globulin Ratio 1.0 0.9-2 Lipase 981 73-393 U/L Assessment & Plan 10/03/17: Some pain this AM - overall pain improved s/p ERCP yesterday with Dr. Interiano WBC and LFTs decreased Will proceed with laparoscopic cholecystectomy today with Dr. Vinson. Risks, benefits, alternatives reviewed - questions answered. Please contact with questions or concerns.
--- NOTE | 2017-10-03 08:21 | NUR ---
Pt resting in bed comfortably. A/O X4. States Dilaudid was effective Denies any issues. Sinus on monitor. Lungs clear/dim on 2l nc. No respiratory distress noted. 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 Will continue to monitor,
--- NOTE | 2017-10-03 08:39 | Anesthesiology Progress Note ---
Anesthesia Post Op Note Date & Time Oct 03, 2017 at 08:38 Vital Signs Pain Intensity: 7.5 Vital Signs Past 12 Hours Date Time Temp Pulse Resp B/P (MAP) Pulse Ox O2 Delivery O2 Flow Rate FiO2 10/03/17 08:00 93 Room Air 10/03/17 07:26 37.0 84 16 162/92 (115) 90 10/03/17 04:32 92 Nasal Cannula 2.0 10/03/17 04:00 Nasal Cannula 2.0 10/03/17 03:35 37.0 92 18 143/82 (102) 88 Room Air 10/03/17 00:00 97 10/02/17 23:30 37.1 83 18 143/79 (100) 91 Room Air 10/02/17 20:58 94 Room Air Notes Mental Status: alert / awake / arousable, participated in evaluation Pt Amnestic to Procedure: Yes Nausea / Vomiting: adequately controlled Pain: adequately controlled Airway Patency, RR, SpO2: stable & adequate BP & HR: stable & adequate Hydration State: stable & adequate Anesthetic Complications: no major complications apparent
[2017-10-03] MEDS ORDERED: PANTOprazole SOD 40 MG TAB PO SCH (09:00)
--- NOTE | 2017-10-03 11:42 | Gastroenterology Progress Note ---
Progress Note Date of Service: Oct 03, 2017 Subjective Pt evaluation today including: conversation w/ patient, physical exam, chart review, lab review, review of inpatient medication list Pt reports feels ok last night but this AM having bad pain across upper abd area. Afebrile overnight, WBC trending down. Tbili up but other LFTs, Lipase trending down. H/H stable. He will have lap cholecystectomy today. Review of Systems Constitutional: No fever, No chills Respiratory: No cough, No shortness of breath Abdomen: + see HPI, + pain, No nausea, No vomiting Skin: + jaundice Medications Current Inpatient Medications Medications (Trade) Dose Ordered Sig/Sahara Route Start Time Stop Time Status Last Admin Dose Admin Ondansetron HCl (Zofran Inj) 4 mg Q6H PRN IV 10/01/17 23:00 10/31/17 22:59 10/02/17 06:00 4 MG Acetaminophen (Tylenol Tab) 500 mg Q6H PRN PO 10/01/17 23:00 10/31/17 22:59 10/01/17 23:24 500 MG Piperacillin Sod/ Tazobactam Sod (Consult) 1 ea DAILY PRN N/A 10/01/17 23:47 10/31/17 23:46 Morphine Sulfate (MoRPHine SULFATE INJ) 2 mg Q4 PRN IV 10/01/17 23:15 10/15/17 23:14 10/03/17 10:17 2 MG Metoclopramide HCl (Reglan Inj) 10 mg Q6H PRN IV 10/01/17 23:15 10/31/17 23:14 10/03/17 05:07 10 MG Piperacillin Sod/ Tazobactam Sod 3.375 gm/Dextrose 115 ml @ 28.75 mls/ hr Q8H IV 10/02/17 00:00 10/12/17 00:00 10/03/17 07:51 28.75 MLS/HR Atorvastatin Calcium (Lipitor Tab) 40 mg DAILY PO 10/03/17 09:00 11/02/17 08:59 10/03/17 07:51 40 MG Diphenhydramine HCl (Benadryl Cap) 25 mg HS PRN PO 10/02/17 10:30 11/01/17 10:29 Pantoprazole Sodium 40 mg/ Syringe 10 ml @ 5 mls/min BID IV 10/02/17 21:00 11/01/17 20:59 10/03/17 07:51 5 MLS/MIN Lactated Ringer's 1,000 ml @ 200 mls/hr Q5H IV 10/02/17 19:30 11/01/17 19:29 10/03/17 10:18 200 MLS/HR Guaifenesin (Organidin Nr Tab) 200 mg Q4H PRN PO 10/02/17 23:45 11/01/17 23:44 10/03/17 00:06 200 MG Hydromorphone HCl (Dilaudid Inj) 0.5 mg Q4H PRN IV 10/03/17 07:00 10/17/17 06:59 10/03/17 07:00 0.5 MG Objective Vital Signs Date Time Temp Pulse Resp B/P (MAP) Pulse Ox O2 Delivery O2 Flow Rate FiO2 10/03/17 08:00 93 Room Air 10/03/17 07:26 37.0 84 16 162/92 (115) 90 10/03/17 04:32 92 Nasal Cannula 2.0 10/03/17 04:00 Nasal Cannula 2.0 10/03/17 03:35 37.0 92 18 143/82 (102) 88 Room Air 10/03/17 00:00 97 10/02/17 23:30 37.1 83 18 143/79 (100) 91 Room Air 10/02/17 20:58 94 Room Air 10/02/17 20:00 97 Nasal Cannula 2.0 10/02/17 19:43 36.6 87 18 132/84 (100) 97 Nasal Cannula 2.0 10/02/17 16:00 Room Air 10/02/17 15:36 37.2 90 18 137/85 (102) 96 Nasal Cannula 2.0 10/02/17 14:00 98 15 129/84 94 Nasal Cannula 2 10/02/17 13:50 36.6 95 12 142/83 94 Nasal Cannula 2 10/02/17 13:40 103 13 148/79 93 Nasal Cannula 2 10/02/17 13:30 106 12 123/80 95 Oxymask 10 10/02/17 13:22 36.8 112 10 122/70 97 Oxymask 10 10/02/17 11:42 37.4 108 18 117/81 (93) 91 Room Air Physical Exam General Appearance: + mild distress (c/o abd pain ), + obese Eyes: PERRL, EOMI, + pertinent finding (icteric sclera) Neck: supple, no JVD, trachea midline Respiratory/Chest: normal breath sounds, no respiratory distress, no accessory muscle use Cardiovascular: regular rate, rhythm, no gallop, no murmur Abdomen: normal bowel sounds, soft, + tenderness (TTP across upper abd ) Extremities: normal inspection, no pedal edema, no calf tenderness Neurologic/Psych: alert, normal mood/affect, oriented x 3 Skin: warm/dry, no rash, + jaundice Laboratory Results Last 24 Hours Test 10/03/17 05:35 White Blood Count 13.94 K/uL Red Blood Count 4.18 M/uL Hemoglobin 12.9 g/dL Hematocrit 37.8 % Mean Corpuscular Volume 90.4 fL Mean Corpuscular Hemoglobin 30.9 pg Mean Corpuscular Hemoglobin Concent 34.1 g/dl Platelet Count 129 K/uL Mean Platelet Volume 11.5 fL Neutrophils (%) (Auto) 85.2 % Lymphocytes (%) (Auto) 6.2 % Monocytes (%) (Auto) 8.3 % Eosinophils (%) (Auto) 0.0 % Basophils (%) (Auto) 0.1 % Neutrophils # (Auto) 11.87 K/uL Lymphocytes # (Auto) 0.87 K/uL Monocytes # (Auto) 1.16 K/uL Eosinophils # (Auto) 0.00 K/uL Basophils # (Auto) 0.01 K/uL RDW Standard Deviation 42.7 fL RDW Coefficient of Variation 13.1 % Immature Granulocyte % (Auto) 0.2 % Immature Granulocyte # (Auto) 0.03 K/uL Sodium Level 139 mmol/L Potassium Level 3.4 mmol/L Chloride Level 107 mmol/L Carbon Dioxide Level 25 mmol/L Anion Gap 7.0 mmol/L Blood Urea Nitrogen 13 mg/dl Creatinine 1.24 mg/dl Est Creatinine Clear Calc Drug Dose 77.3 ml/min Estimated GFR () 73.8 Estimated GFR (Non- 63.7 BUN/Creatinine Ratio 10.6 Random Glucose 117 mg/dl Calcium Level 8.3 mg/dl Magnesium Level 1.8 mg/dl Total Bilirubin 4.0 mg/dl Direct Bilirubin 3.0 mg/dl Aspartate Amino Transf (AST/SGOT) 124 U/L Alanine Aminotransferase (ALT/SGPT) 341 U/L Alkaline Phosphatase 95 U/L Total Protein 6.1 gm/dl Albumin 3.1 gm/dl Globulin 3.0 gm/dl Albumin/Globulin Ratio 1.0 Lipase 981 U/L Assessment and Plan Patient is a 56 year old male presented w RUQ abd pain, n/v, fever, chills. Labs showed elevated LFTs, Lipase, CT scan & u/s concerning for cholelithiasis w acute cholecystitis and likely gallstone pancreatitis. ERCP w sphincterectomy done 10/[address] Interiano. Biliary sludge and pus noted (cholangitis). H/H stable, Tbili up but rest of LFTs and Lipase trending down. WBC 17->13. He is still on Zosyn. Plan for OR for lap cholecystectomy today. Plans - NPO for cholecystectomy by Surgery team. - LR @ 200ml/hr - PPI IV BID - Avoid NSAIDs, ASA 1 weeks after sphincterectomy is performed. - Continue Zosyn IV for cholangitis. - Monitor LFTs and Lipase ATTESTATION: I have performed a history and physical examination of this patient and reviewed the electronic record. Specifically, on physical examination there is mild to moderate RUQ tenderness. I have discussed the case with DORINA Valdes. The above note reflects my findings, conclusions, and recommendations. Carmine Interiano MD
--- NOTE | 2017-10-03 12:00 | NUR ---
Pt resting in bed comfortably. A/O x4. States he is in constant pain. Medicating with Morphine and Dilaudid. Skin Yellow in color. Sinus on monitor. BP [address] Padgett informed. 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 Call velasquez within reach. Will continue to monitor.
[2017-10-03] MEDS ORDERED: SUCCINYLCHOLINE CHLORIDE 20 MG/ML 10 ML VIAL IV ONE (14:37)
[2017-10-03] MEDS ORDERED: LIDOCAINE HCL 2% 2 ML VIAL (20MG/ML) ONE ×2 (14:37→15:19)
[2017-10-03] MEDS ORDERED: PROPOFOL IV EMULSION 10 MG/ML 20 ML VIAL IV ONE ×2 (14:37→15:19)
[2017-10-03] MEDS ORDERED: MIDAZOLAM HCL 1 MG/ML 2ML VIAL ONE ×2 (14:38→15:20)
[2017-10-03] MEDS ORDERED: FENTANYL CITRATE INJ 50 MCG/1 ML 2 ML VIAL ONE ×4 (14:38→16:18)
[2017-10-03] MEDS ORDERED: PHENYLEPHRINE 100MCG/ML 5ML SYR IV PRN (15:15)
[2017-10-03] MEDS ORDERED: ATROPINE SULFATE 0.1 MG/ML 5ML SYR IV PRN (15:15)
[2017-10-03] MEDS ORDERED: HYDROmorphone INJ 2 MG/ML SYR/VIAL IV PRN (15:15)
[2017-10-03] MEDS ORDERED: ONDANSETRON INJ 2 MG/ML 2 ML VIAL IV PRN (15:15)
[2017-10-03] MEDS ORDERED: EpHEDrine SULFATE INJ 50 MG/ML AMP IV PRN (15:15)
[2017-10-03] MEDS ORDERED: DEXAMETHASONE SOD INJ 4 MG/ML VIAL ONE (15:19)
[2017-10-03] MEDS ORDERED: NEOSTIGMINE METHYLSULFATE 5 MG/5 ML SYR ONE (15:19)
[2017-10-03] MEDS ORDERED: ROCURONIUM BROMIDE 10 MG/ML 5 ML VIAL IV ONE (15:19)
[2017-10-03] MEDS ORDERED: ONDANSETRON INJ 2 MG/ML 2 ML VIAL ONE (15:19)
--- NOTE | 2017-10-03 15:34 | History & Physical Bridge Note ---
H&P Re-Evaluation Bridge Note: I have examined the patient, reviewed the History & Physical and in the interval since the performance of the History & Physical I have noted the following changes of clinical significance: No changes noted s/p ERCP...lipase decreased. Tbili slightly increased likely secondary to the ERCP manipulation. discussed risks ( bleeding/infection/dvt/pe/mi/injury to other organs such as bile duct/bowel etc... questions answered. ok to proceed.
[2017-10-03] MEDS ORDERED: BUPIVACAINE/EPINEPHRINE 0.5% MPF 1:200,000 30 ML VIAL ONE (15:49)
[2017-10-03] MEDS ORDERED: SURGICEL ABSORB HEMOSTAT 2IN X 14IN TOP ONE (16:58)
[2017-10-03] MEDS ORDERED: NSS + 20MEQ KCL 1000ML 1,000 ML IV SCH (17:30)
[2017-10-03] MEDS ORDERED: ALBUTEROL 0.083% NEBU SOLN 3 ML VIAL INH ONE (17:35)
[2017-10-03] MEDS ORDERED: ALBUTEROL 0.083% NEBU SOLN 3 ML VIAL INH STA (17:36)
--- NOTE | 2017-10-03 18:20 | DIAGNOSTIC IMAGING REPORT ---
CHEST ONE VIEW PORTABLE CLINICAL HISTORY: 56 years-old Male presenting with hypoxia. TECHNIQUE: Portable upright AP view of the chest was obtained. COMPARISON: 10/01/2017. FINDINGS: Atherosclerosis of aortic arch. Cardiac silhouette mildly enlarged. Mild pulmonary vascular prominence. Bandlike opacity at the right lung base. Hazy opacity at the left lung base. Small left pleural effusion. No pneumothorax. Osseous structures normal. Upper abdomen normal. IMPRESSION: 1. Minimal bibasilar opacities possibly atelectasis. 2. Small left pleural effusion. 3. Mild cardiomegaly and suggestion of mild volume overload. Electronically signed by: Forest Saenz M.D. 10/03/2017 6:19 PM Dictated Date/Time: 10/03/2017 6:17 PM
[2017-10-03] MEDS ORDERED: ACETAMINOPHEN 1000 MG/100 ML IV IV ONE (18:23)
[2017-10-03] MEDS ORDERED: NURSING VERBAL MED ORDER ONE (18:25)
--- NOTE | 2017-10-03 18:37 | Progress Note ---
Medicine Progress Note Date & Time of Visit: Oct 03, 2017 at 14:40. Subjective 56 yo M with intermittent RUQ pain and episodes of vomiting admitted for acute cholecystitis. He underwent ERCP yesterday with sphincterotomy that revealed sludge and pus. He then underwent cholecystecomy under general anesthesia this afternoon and is recovering in the PACU. The patient reports feeling improved regarding his pain, and also states that he is breathing easier. He does have 2 /2 blood cultures positive for GNB. Temp post op is 38 (100.4F) and he is tachycardic with a normal blood pressure. He is on 10L facemask and has not been able to be weaned by anesthesia for the past hour. He had a CXR performed revealing atelectasis and a small pleural effusion with some evidence of mild volume overload. He has no h/o heart disease. He has been on 200cc of LR for > 24 hours. On exam his lungs are clear, surgical sites are clean and intact and he is mentating well. Transferring to ICU for recovery overnight. Objective Last 8 Hrs Date Time Temp Pulse Resp B/P (MAP) Pulse Ox O2 Delivery O2 Flow Rate FiO2 10/03/17 13:29 178/72 (107) 10/03/17 12:00 93 Room Air 10/03/17 11:41 37.3 77 18 187/96 (126) 90 183/103 (129) 10/03/17 08:00 93 Room Air 10/03/17 07:26 37.0 84 16 162/92 (115) 90 Physical Exam: GEN: WNWD, in no acute distress, alert and appropriate, able to move around the bed with ease. Ill-appearing, on 10L facemask HEENT: NC/AT, pupils are round and equal bilaterally, normal sclerae CARDIO: tachy rate, S1/2 heard without m/g/r LUNGS: CTA bilaterally, no crackles, rales or wheezes, good diaphragmatic excursion ABD: soft, tenderness around incision sites. Limited exam 2/2 recent surgery EXTREMITY: RP and DP palpable 2+ bilat, no LE swelling or edema, extremities are warm and well-perfused NEURO: CN 2-12 grossly intact, no gross focal deficits. MUSC: 5/5 strength throughout, no gross focal deficits SKIN: warm and dry and wounds as above. Laboratory Results: 10/03/17 05:35 Red Blood Count 4.18, Mean Corpuscular Volume 90.4, Mean Corpuscular Hemoglobin 30.9, Mean Corpuscular Hemoglobin Concent 34.1, Mean Platelet Volume 11.5, Neutrophils (%) (Auto) 85.2, Lymphocytes (%) (Auto) 6.2, Monocytes (%) (Auto) 8.3, Eosinophils (%) (Auto) 0.0, Basophils (%) (Auto) 0.1, Neutrophils # (Auto) 11.87, Lymphocytes # (Auto) 0.87, Monocytes # (Auto) 1.16, Eosinophils # (Auto) 0.00, Basophils # (Auto) 0.01 10/03/17 05:35 Test 10/01/17 19:35 10/01/17 21:26 10/01/17 23:31 10/03/17 05:35 Chemistry Specimen Hemolysis Gamma Glutamyl Transpeptidase 715 U/L (3-85) C-Reactive Protein < 0.29 mg/dl (0-0.29) Prothrombin Time 10.7 SECONDS (9.0-12.0) Prothromb Time International Ratio 1.0 (0.9-1.1) Activated Partial Thromboplast Time 24.3 SECONDS (21.0-31.0) Partial Thromboplastin Ratio 0.9 Lactic Acid Level 1.7 mmol/L (0.4-2.0) White Blood Count 13.94 K/uL (4.8-10.8) Red Blood Count 4.18 M/uL (4.7-6.1) Hemoglobin 12.9 g/dL (14.0-18.0) Hematocrit 37.8 % (42-52) Mean Corpuscular Volume 90.4 fL (80-100) Mean Corpuscular Hemoglobin 30.9 pg (25-34) Mean Corpuscular Hemoglobin Concent 34.1 g/dl (32-36) Platelet Count 129 K/uL (130-400) Mean Platelet Volume 11.5 fL (7.4-10.4) Neutrophils (%) (Auto) 85.2 % Lymphocytes (%) (Auto) 6.2 % Monocytes (%) (Auto) 8.3 % Eosinophils (%) (Auto) 0.0 % Basophils (%) (Auto) 0.1 % Neutrophils # (Auto) 11.87 K/uL (1.4-6.5) Lymphocytes # (Auto) 0.87 K/uL (1.2-3.4) Monocytes # (Auto) 1.16 K/uL (0.11-0.59) Eosinophils # (Auto) 0.00 K/uL (0-0.5) Basophils # (Auto) 0.01 K/uL (0-0.2) RDW Standard Deviation 42.7 fL (36.4-46.3) RDW Coefficient of Variation 13.1 % (11.5-14.5) Immature Granulocyte % (Auto) 0.2 % Immature Granulocyte # (Auto) 0.03 K/uL (0.00-0.02) Anion Gap 7.0 mmol/L (3-11) Est Creatinine Clear Calc Drug Dose 77.3 ml/min Estimated GFR () 73.8 Estimated GFR (Non- 63.7 BUN/Creatinine Ratio 10.6 (10-20) Calcium Level 8.3 mg/dl (8.5-10.1) Magnesium Level 1.8 mg/dl (1.8-2.4) Total Bilirubin 4.0 mg/dl (0.2-1) Direct Bilirubin 3.0 mg/dl (0-0.2) Aspartate Amino Transf (AST/SGOT) 124 U/L (15-37) Alanine Aminotransferase (ALT/SGPT) 341 U/L (12-78) Alkaline Phosphatase 95 U/L (45-117) Total Protein 6.1 gm/dl (6.4-8.2) Albumin 3.1 gm/dl (3.4-5.0) Globulin 3.0 gm/dl (2.5-4.0) Albumin/Globulin Ratio 1.0 (0.9-2) Lipase 981 U/L (73-393) Date/Time Source Procedure Growth Status 10/01/17 23:31 Blood Blood Culture - Preliminary Gram Negative Bacilli Resulted Last 24 Hours Test 10/03/17 05:35 White Blood Count 13.94 K/uL Red Blood Count 4.18 M/uL Hemoglobin 12.9 g/dL Hematocrit 37.8 % Mean Corpuscular Volume 90.4 fL Mean Corpuscular Hemoglobin 30.9 pg Mean Corpuscular Hemoglobin Concent 34.1 g/dl Platelet Count 129 K/uL Mean Platelet Volume 11.5 fL Neutrophils (%) (Auto) 85.2 % Lymphocytes (%) (Auto) 6.2 % Monocytes (%) (Auto) 8.3 % Eosinophils (%) (Auto) 0.0 % Basophils (%) (Auto) 0.1 % Neutrophils # (Auto) 11.87 K/uL Lymphocytes # (Auto) 0.87 K/uL Monocytes # (Auto) 1.16 K/uL Eosinophils # (Auto) 0.00 K/uL Basophils # (Auto) 0.01 K/uL RDW Standard Deviation 42.7 fL RDW Coefficient of Variation 13.1 % Immature Granulocyte % (Auto) 0.2 % Immature Granulocyte # (Auto) 0.03 K/uL Sodium Level 139 mmol/L Potassium Level 3.4 mmol/L Chloride Level 107 mmol/L Carbon Dioxide Level 25 mmol/L Anion Gap 7.0 mmol/L Blood Urea Nitrogen 13 mg/dl Creatinine 1.24 mg/dl Est Creatinine Clear Calc Drug Dose 77.3 ml/min Estimated GFR () 73.8 Estimated GFR (Non- 63.7 BUN/Creatinine Ratio 10.6 Random Glucose 117 mg/dl Calcium Level 8.3 mg/dl Magnesium Level 1.8 mg/dl Total Bilirubin 4.0 mg/dl Direct Bilirubin 3.0 mg/dl Aspartate Amino Transf (AST/SGOT) 124 U/L Alanine Aminotransferase (ALT/SGPT) 341 U/L Alkaline Phosphatase 95 U/L Total Protein 6.1 gm/dl Albumin 3.1 gm/dl Globulin 3.0 gm/dl Albumin/Globulin Ratio 1.0 Lipase 981 U/L Assessment & Plan 56 yo M with intermittent RUQ pain and episodes of vomiting admitted for acute cholecystitis. He underwent ERCP yesterday with sphincterotomy that revealed sludge and pus. He then underwent cholecystecomy under general anesthesia this afternoon and is recovering in the PACU. The patient reports feeling improved regarding his pain, and also states that he is breathing easier. He does have 2 /2 blood cultures positive for GNB. Temp post op is 38 (100.4F) and he is tachycardic with a normal blood pressure. He is on 10L facemask and has not been able to be weaned by anesthesia for the past hour. He had a CXR performed revealing atelectasis and a small pleural effusion with some evidence of mild volume overload. He has no h/o heart disease. He has been on 200cc of LR for > 24 hours. On exam his lungs are clear, surgical sites are clean and intact and he is mentating well. Transferring to ICU for recovery overnight. 1. Sepsis 2/2 acute cholecystitis-ERCP yesterday, lap leeanna today, patient reports doing well but is on 10L face mask and has been unable to be weaned for the last hour. Cont management per ICU team. 2. PARAMJIT 2/2 sepsis/dehydration-resolved 3. Leukocytosis 2/2 infection. 4. Hyperlipidemia-cont Lipitor 5. Chronic L shoulder rotator cuff tendonitis-pt has chronic insomnia from chronic pain in his shoulder and takes Benadryl and Naprosyn 220mg PO x 1 tab every night for pain control and to help him sleep. Hold these now. 6. GERD-cont PPI DVT PROPHYLAXIS: SCDs Full Code Dispo: ICU DO Babita Burton Hospitalist Consultants: General Surgery-[facility] ICU-[facility] Current Inpatient Medications: Current Inpatient Medications Medications (Trade) Dose Ordered Sig/Sahara Route Start Time Stop Time Status Last Admin Dose Admin Ondansetron HCl (Zofran Inj) 4 mg Q6H PRN IV 10/01/17 23:00 10/31/17 22:59 10/02/17 06:00 4 MG Acetaminophen (Tylenol Tab) 500 mg Q6H PRN PO 10/01/17 23:00 10/31/17 22:59 10/01/17 23:24 500 MG Piperacillin Sod/ Tazobactam Sod (Consult) 1 ea DAILY PRN N/A 10/01/17 23:47 10/31/17 23:46 Morphine Sulfate (MoRPHine SULFATE INJ) 2 mg Q4 PRN IV 10/01/17 23:15 10/15/17 23:14 10/03/17 10:17 2 MG Metoclopramide HCl (Reglan Inj) 10 mg Q6H PRN IV 10/01/17 23:15 10/31/17 23:14 10/03/17 05:07 10 MG Piperacillin Sod/ Tazobactam Sod 3.375 gm/Dextrose 115 ml @ 28.75 mls/ hr Q8H IV 10/02/17 00:00 10/12/17 00:00 10/03/17 07:51 28.75 MLS/HR Atorvastatin Calcium (Lipitor Tab) 40 mg DAILY PO 10/03/17 09:00 11/02/17 08:59 10/03/17 07:51 40 MG Diphenhydramine HCl (Benadryl Cap) 25 mg HS PRN PO 10/02/17 10:30 11/01/17 10:29 Pantoprazole Sodium 40 mg/ Syringe 10 ml @ 5 mls/min BID IV 10/02/17 21:00 11/01/17 20:59 10/03/17 07:51 5 MLS/MIN Lactated Ringer's 1,000 ml @ 200 mls/hr Q5H IV 10/02/17 19:30 11/01/17 19:29 10/03/17 10:18 200 MLS/HR Guaifenesin (Organidin Nr Tab) 200 mg Q4H PRN PO 10/02/17 23:45 11/01/17 23:44 10/03/17 00:06 200 MG Hydromorphone HCl (Dilaudid Inj) 0.5 mg Q4H PRN IV 10/03/17 07:00 10/17/17 06:59 10/03/17 12:01 0.5 MG
--- NOTE | 2017-10-03 18:38 | Anesthesiology Progress Note ---
Anesthesia Post Op Note Date & Time Oct 03, 2017 at 18:34 Vital Signs Pain Intensity: 4 Vital Signs Past 12 Hours Date Time Temp Pulse Resp B/P (MAP) Pulse Ox O2 Delivery O2 Flow Rate FiO2 10/03/17 18:25 108 24 172/100 93 Oxymask 8 10/03/17 18:15 98 19 171/98 95 Oxymask 10 10/03/17 18:05 117 19 137/100 94 Nasal Cannula 5 10/03/17 17:55 116 19 134/89 91 Mask 7 10/03/17 17:45 106 14 167/95 95 Mask 13 10/03/17 17:35 104 17 161/85 86 Mask 13 10/03/17 17:25 106 15 165/100 92 Mask 13 10/03/17 17:17 36.9 110 22 133/93 87 Mask 13 10/03/17 15:00 Room Air 10/03/17 13:29 178/72 (107) 10/03/17 12:00 93 Room Air 10/03/17 11:41 37.3 77 18 187/96 (126) 90 183/103 (129) 10/03/17 08:00 93 Room Air 10/03/17 07:26 37.0 84 16 162/92 (115) 90 Notes Mental Status: alert / awake / arousable, participated in evaluation Pt Amnestic to Procedure: Yes Nausea / Vomiting: adequately controlled Pain: adequately controlled Airway Patency, RR, SpO2: stable & adequate, see Notes BP & HR: stable & adequate Hydration State: stable & adequate Anesthetic Complications: no major complications apparent Patient with increased oxygen needs post op - [place] "tight" - breathing treatment done but still needing 10L oxygen to keep sats in mid nineties. Does look more comfortable with his breathing now, cxr showed possible mild fluid overload and atelectasis. Is febrile and likely has some cholangitis. Spoke with medicine, patient will be put in ICU for closer observation tonight - Dr Vinson aware.
[2017-10-03] MEDS ORDERED: ACETAMINOPHEN IV 1000MG/100ML IV ONE (18:45)
--- NOTE | 2017-10-03 18:50 | NUR ---
A I/D:PATIENT ARRIVES FROM PACU VIA BED IN STABLE CONDITION INTO ROOM 109-PATIENT AWAKE, ALERT AND ORIENTED X4-PATIENT DENIES PAIN, SOB, DIZZINESS OR NAUSEA AT THIS TIME-DIETITIAN RESEARCH PLACED ON PATIENT AND DISPLAYS ST HR 110S-SBP 170S-PATIENT PLACED ON 6L OXYMASK-DR. GLEZ AND CARLOS CHÁVEZ PRESENT AT BEDSIDE-IVF HELD AT THIS TIME-CRACKLES HEARD IN RIGHT LOWER BASE- PRESENT AT BEDSIDE AND UPDATED BY MEDICAL STAFF
--- NOTE | 2017-10-03 19:04 | [facility] Operative Report ---
Operative Report Operative Date Oct 03, 2017. Pre-Operative Diagnosis Choledocholithasis/pancreatitis Post-Operative Diagnosis calculous Cholecystitis Procedure(s) Performed Laparoscopic Cholecystectomy Surgeon Dr Vinson Brass Polisher Surgeon(s) Alexx East PA-C Estimated Blood Loss 10ml Findings acutely inflammed gallbladder Specimens a. Gallbladder Drains None Anesthesia General Disposition Recovery Room / PACU Description of Procedure After informed consent was obtained the patient was taken to the operating room and placed in a supine position. After successful intubation the abdomen was shaved and sterilely prepped and draped in usual fashion. A supraumbilical incision was made with an 11 blade scalpel and carried down through the soft tissue using electrocautery. The anterior rectus fascia was opened using electrocautery and 2 #0 Vicryl stay sutures were placed. Peritoneum was elevated with hemostats and incised under direct vision using a Metzenbaum scissor. A finger sweep was performed. A 12 mm Mathew trocar was placed and the abdomen was insufflated to 20 mmHg. A Laparoscope was inserted and the abdomen examined 360. A subxiphoid 5 mm port which would later be converted to a 12 mm port and 2 right upper quadrant 5 mm ports were placed under direct vision. The patient was placed in reverse Trendelenburg position and slightly airplaned to to the left. The gallbladder was acutely inflamed. It was thickened and distended. In order to grab it we had the drain with a gallbladder needle. We got brown foul-smelling purulent type of fluid from the gallbladder. We're then able to grab it and elevate it superiorly and laterally. Blunt dissection was used to take down adhesions around the neck of the gallbladder. I was eventually able to identify and skeletonize the cystic duct. Because it was thick I did not feel clips would be adequate. I used a ZENIA linear stapler to transect the cystic duct with a 45 mm nelson stapler. I was able to identify the cystic artery skeletonized it clip and divide it. There was also a posterior branch that I had to clip as well. The gallbladder was then removed from the gallbladder fossa intact. It was placed into an Endo Catch bag. The right upper quadrant was thoroughly irrigated. Any bleeding points in the gallbladder fossa were controlled using electrocautery. It was rather oozy and I therefore decided to place some Surgicel into the gallbladder fossa. I also placed a 10 flat Hardeep-Hatch drain into the right upper quadrant and brought out through one of the trocar sites. I thoroughly irrigated the right upper quadrant until the irrigant was clear. I did look around the abdomen and saw no other gross abnormalities. The trochars and gallbladder were all removed from the abdomen. The abdomen was then desufflated. The fascia of the camera port was closed using 0 Vicryl in a [id number] fashion. All the wounds were irrigated and closed using 4-0 Monocryl. Marcaine was injected around him for postoperative analgesia and skin glue used as a dressing. The patient was awakened extubated and transferred to recovery in stable condition My physician's credit assistant was present throughout the entire case. He helped prepped the patient. He helped with retraction for trocar placement. He he retracted the gallbladder throughout the case helped with wound closure as well as dressing placement I attest to the content of the Intraoperative Record and any orders documented therein. Any exceptions are noted below.
--- NOTE | 2017-10-03 19:15 | NUR ---
A:PATIENT OOB WITH ASSIST X1 TO AMBULATE AND SIT IN THE CHAIR-PATIENT VOIDED 500 CC OF CONCENTRATED, CARLO URINE-PATIENT REMAINS ON 8L OXYMASK-MABRY NOTED
--- NOTE | 2017-10-03 20:00 | NUR ---
A I/D:PATIENT C/O ABD PAIN 03/16 AND MEDICATED WITH MORPHINE 2 MG IV FOR COMFORT-PATIENT BACK TO BED-CLEAN UP HELPER BANQUET DISPLAYS SR HR 80S-SEE EMR FOR COMPLETE ELECTORAL OFFICER-PM MEDS GIVEN-PATIENT VOIDING IN URINAL WITHOUT DIFFICULTY-ABD SOFT, NONDISTENDED, TENDER TO TOUCH WITH ABSENT BS-PATIENT TOLERATING CLEAR LIQUIDS-ABDOMINAL SURGICAL DRESSINGS INTACT WITH A SMALL AMOUNT OF SHADOWING ON THE RIGHT LATERAL DRESSING-MCKENNA DRAIN INTACT AND DRAINING A SMALL AMOUNT OF BLOODY DRAINAGE-STAB WOUNDS X2 INTACT WITH DERMABOND-SKIN APPEARS WARM, DRY AND INTACT WITH TRACE BLE EDEMA NOTED AND +PALPABLE PULSES PRESENT-PATIENT APPEARS CALM AND COMFORTABLE IN BED WITH CALL ENNIS IN REACH-DISCHARGE PLANNING UNKNOWN AT THIS TIME-RN WILL CONTINUE TO CLOSELY MONITOR Addendum: 10/03/17 at 2356 by Jennifer Cortes RN ERROR IN DOCUMENTATION:ABD SOFT, NONDISTENDED TENDER TO TOUCH WITH HYPOACTIVE BS
--- NOTE | 2017-10-03 20:31 | Critical Care Consultation ---
Critical Care Consultation Date of Consultation: Oct 03, 2017. Attending Physician: Lisbet Padgett DO Reason for Consultation: Hypoxia requiring high levels of O2 supplementation status post general anesthesia for laparoscopic cholecystectomy. Requiring close pulse oximetry monitoring and cardiovascular monitoring. History of Present Illness Patient is a 56-year-old male initially admitted on the secondary to acute cholecystitis with sepsis. He was admitted and placed on IV Zosyn pending ERCP. During an ERCP, sludge and pus was noted in the biliary tree. He was subsequently prepped for laparoscopic cholecystectomy which was performed today. Patient has had a persistent leukocytosis since admission. Lactic acid was not elevated. He initially presented with an PARAMJIT presumably related to his infection/septic state. He was aggressively resuscitated with IV fluids at 200 mL per hour for greater than 24 hours. After general anesthesia for laparoscopic cholecystectomy, the patient was found to be hypoxic requiring 8 L oxy mask. Concerns for volume overload were appreciated on chest x-ray. ICU staff was consulted secondary to concerns for poor oxygenation and volume overload status post surgical intervention. Upon arrival to the ICU, the patient complains of some tightness in his chest was is worse with inspiration. He denies shortness of breath, however. He does report some mild discomfort in his upper abdomen at the RIGHT upper quadrant. He reports no history of cardiovascular disease, ACS, coronary disease, hypertension, CHF, PE, coagulopathy, nausea, vomiting, or other discomfort. Patient admits to daily alcohol use qualified approximate one drink per day. He has a remote history of smoking in the early . Past Medical/Surgical History Medical Problems: (1) Cholecystitis (2) Hyperlipidemia Surgical Problems: (1) Hx of colonoscopy (2) Hx of tonsillectomy Family History FH: cancer FATHER (prostate CA age 79) BROTHER (colon CA age 50) Hypertension FATHER Noncontributory Social History Smoking Status: Former Smoker (quit 1983, smoked 1ppd x 13 years) Smokeless Tobacco Use: No Alcohol Use: 1 beer/1 glass of wine daily Drug Use: none Marital Status: Housing Status: lives with significant other Occupation Status: employed Allergies Coded Allergies: No Known Allergies (Unverified , 10/01/17) Home Medications Scheduled Atorvastatin (Lipitor), 40 MG PO DAILY Diphenhydramine Hcl (Benadryl Allergy), 1 CAP PO HS Naproxen (Aleve), 220 MG PO HS Omeprazole (Prilosec), 1 CAP PO DAILY Current Inpatient Medications Current Inpatient Medications Medications (Trade) Dose Ordered Sig/[place] Route Start Time Stop Time Status Last Admin Dose Admin Ondansetron HCl (Zofran Inj) 4 mg Q6H PRN IV 10/01/17 23:00 10/31/17 22:59 10/02/17 06:00 4 MG Acetaminophen (Tylenol Tab) 500 mg Q6H PRN PO 10/01/17 23:00 10/31/17 22:59 10/01/17 23:24 500 MG Piperacillin Sod/ Tazobactam Sod (Consult) 1 ea DAILY PRN N/A 10/01/17 23:47 10/31/17 23:46 Morphine Sulfate (MoRPHine SULFATE INJ) 2 mg Q4 PRN IV 10/01/17 23:15 10/15/17 23:14 10/03/17 19:59 2 MG Metoclopramide HCl (Reglan Inj) 10 mg Q6H PRN IV 10/01/17 23:15 10/31/17 23:14 10/03/17 05:07 10 MG Atorvastatin Calcium (Lipitor Tab) 40 mg DAILY PO 10/03/17 09:00 11/02/17 08:59 10/03/17 07:51 40 MG Diphenhydramine HCl (Benadryl Cap) 25 mg HS PRN PO 10/02/17 10:30 11/01/17 10:29 Pantoprazole Sodium 40 mg/ Syringe 10 ml @ 5 mls/min BID IV 10/02/17 21:00 11/01/17 20:59 10/03/17 07:51 5 MLS/MIN Guaifenesin (Organidin Nr Tab) 200 mg Q4H PRN PO 10/02/17 23:45 11/01/17 23:44 10/03/17 00:06 200 MG Hydromorphone HCl (Dilaudid Inj) 0.5 mg Q1H PRN IV 10/03/17 17:15 10/17/17 17:14 Piperacillin Sod/ Tazobactam Sod 3.375 gm/Dextrose 115 ml @ 28.75 mls/ hr Q8H IV 10/03/17 20:00 10/12/17 11:59 10/03/17 20:14 28.75 MLS/HR Furosemide 40 mg/ Syringe 4 ml @ 4 mls/min ONE ONCE IV 10/03/17 20:15 10/03/17 20:16 UNV Review of Systems A complete 10-point Review of Systems was discussed with the patient, with pertinent positives and negatives listed in the History of Present Illness. All remaining Review of Systems questions can be considered negative unless otherwise specified. Physical Exam Date Time Temp Pulse Resp B/P (MAP) Pulse Ox O2 Delivery O2 Flow Rate FiO2 10/03/17 19:00 37.6 90 15 95 8.0 10/03/17 18:45 90 15 170/92 95 Oxymask 8 10/03/17 18:35 37.6 97 17 155/90 96 Oxymask 8 10/03/17 18:25 38.0 108 24 172/100 93 Oxymask 8 10/03/17 18:15 98 19 171/98 95 Oxymask 10 10/03/17 18:05 117 19 137/100 94 Nasal Cannula 5 10/03/17 17:55 116 19 134/89 91 Mask 7 10/03/17 17:45 106 14 167/95 95 Mask 13 10/03/17 17:35 104 17 161/85 86 Mask 13 10/03/17 17:25 106 15 165/100 92 Mask 13 10/03/17 17:17 36.9 110 22 133/93 87 Mask 13 10/03/17 15:00 Room Air 10/03/17 13:29 178/72 (107) 10/03/17 12:00 93 Room Air 10/03/17 11:41 37.3 77 18 187/96 (126) 90 183/103 (129) 10/03/17 08:00 93 Room Air 10/03/17 07:26 37.0 84 16 162/92 (115) 90 10/03/17 04:32 92 Nasal Cannula 2.0 10/03/17 04:00 Nasal Cannula 2.0 10/03/17 03:35 37.0 92 18 143/82 (102) 88 Room Air 10/03/17 00:00 97 10/02/17 23:30 37.1 83 18 143/79 (100) 91 Room Air 10/02/17 20:58 94 Room Air VITAL SIGNS - Vital signs and nursing notes were reviewed. GENERAL - 56-year-old male appearing his stated age who is in no acute distress. Communicates well with provider and answers questions appropriately. HEAD - NC/AT. EYES - PERRL with EOMI bilaterally. EARS - No deformities of external structures noted on gross examination bilaterally. NOSE - Midline and without cyanosis. MOUTH/OROPHARYNX - Without perioral cyanosis. Buccal mucosa pink and moist and without leukoplakia. Tongue midline with equal elevation of palate bilaterally. NECK - Neck with FROM. Supple to palpation. No nuchal rigidity. LUNGS - Chest wall symmetric without accessory muscle use, intercostals retractions, or central cyanosis. Normal vesicular breath sounds CTA B/L. Slight RIGHT lower lobe rales appreciated. No wheezes or rhonchi appreciated. CARDIAC - RRR with S1/S2. No murmur, rubs, or gallops appreciated. ABDOMEN - Abdominal contour protuberant and without pulsations or visible masses. Surgical dressings intact. Negative [place]'s or [place]'s Signs. BS hypoactive all four quadrants. Mild tenderness to palpation appreciated throughout. No guarding. No Rebound Tenderness. EXTREMITIES - No clubbing or peripheral cyanosis. No pretibial edema present. +3 /5 radial and dorsalis pedis pulses palpated throughout. PSYCH - A&Ox3 and cooperates fully with examiner. Pt is very pleasant and interacts well with examiner. Laboratory Results Last 24 Hours Test 10/03/17 05:35 White Blood Count 13.94 K/uL Red Blood Count 4.18 M/uL Hemoglobin 12.9 g/dL Hematocrit 37.8 % Mean Corpuscular Volume 90.4 fL Mean Corpuscular Hemoglobin 30.9 pg Mean Corpuscular Hemoglobin Concent 34.1 g/dl Platelet Count 129 K/uL Mean Platelet Volume 11.5 fL Neutrophils (%) (Auto) 85.2 % Lymphocytes (%) (Auto) 6.2 % Monocytes (%) (Auto) 8.3 % Eosinophils (%) (Auto) 0.0 % Basophils (%) (Auto) 0.1 % Neutrophils # (Auto) 11.87 K/uL Lymphocytes # (Auto) 0.87 K/uL Monocytes # (Auto) 1.16 K/uL Eosinophils # (Auto) 0.00 K/uL Basophils # (Auto) 0.01 K/uL RDW Standard Deviation 42.7 fL RDW Coefficient of Variation 13.1 % Immature Granulocyte % (Auto) 0.2 % Immature Granulocyte # (Auto) 0.03 K/uL Sodium Level 139 mmol/L Potassium Level 3.4 mmol/L Chloride Level 107 mmol/L Carbon Dioxide Level 25 mmol/L Anion Gap 7.0 mmol/L Blood Urea Nitrogen 13 mg/dl Creatinine 1.24 mg/dl Est Creatinine Clear Calc Drug Dose 77.3 ml/min Estimated GFR () 73.8 Estimated GFR (Non- 63.7 BUN/Creatinine Ratio 10.6 Random Glucose 117 mg/dl Calcium Level 8.3 mg/dl Magnesium Level 1.8 mg/dl Total Bilirubin 4.0 mg/dl Direct Bilirubin 3.0 mg/dl Aspartate Amino Transf (AST/SGOT) 124 U/L Alanine Aminotransferase (ALT/SGPT) 341 U/L Alkaline Phosphatase 95 U/L Total Protein 6.1 gm/dl Albumin 3.1 gm/dl Globulin 3.0 gm/dl Albumin/Globulin Ratio 1.0 Lipase 981 U/L Diagnostic Results Radiological imaging and reports were reviewed by myself. Radiologist's Interpretation as follows: CHEST ONE VIEW PORTABLE CLINICAL HISTORY: 56 years-old Male presenting with hypoxia. TECHNIQUE: Portable upright AP view of the chest was obtained. COMPARISON: 10/01/2017. FINDINGS: Atherosclerosis of aortic arch. Cardiac silhouette mildly enlarged. Mild pulmonary vascular prominence. Bandlike opacity at the right lung base. Hazy opacity at the left lung base. Small left pleural effusion. No pneumothorax. Osseous structures normal. Upper abdomen normal. IMPRESSION: 1. Minimal bibasilar opacities possibly atelectasis. 2. Small left pleural effusion. 3. Mild cardiomegaly and suggestion of mild volume overload. All prior laboratory results and imaging studies were reviewed by myself personally. Assessment & Plan (1) Hypoxia (2) Volume overload (3) Transaminitis (4) Cholecystitis (5) Hyperlipidemia Reason Critically Ill: Hypoxia requiring high levels of O2 supplementation status post general anesthesia for laparoscopic cholecystectomy. Requiring close pulse oximetry monitoring and cardiovascular monitoring. Neuro - * CAM ICU: NEGATIVE * Post-Surgical Pain - Morphine PRN * Daily EtOH use - will add CIWA protocols. Cardiac - * No h/o CAD/HTN * Hyperlipidemia - continue home Rx. * Will recheck EKG in the setting of hypoxia and acute volume overload. * Will check Echo in the AM for new onset volume overload with no known h/o CAD/ CHF/Valvular heart disease. * Likely all 2/2 acute septic process, however stress-induced cardiomyopathies remain on the differential. * Acute Volume Overload: * Likely 2/2 aggressive fluid resuscitation in the setting of sepsis. * Patient hypertensive which lends itself to a congestive process. * Will check cardiac enzymes. * Will add small dose of Lasix (40 mg) to aid in the acute overload. Would not over-diurese in the setting of sepsis and need for intravascular volume. * Concerns for Pulmonary Edema on CXR - will add BiPAP overnight for positive airway pressure. * See Above. * Monitor on telemetry. * EKG now w/ EKGs for Chest Pain Respiratory - * Acute Hypoxia s/p General Anesthesia for Laparoscopic Cholecystectomy: * Likely 2/2 volume overload. * Lasix, BiPAP (07/11), Serial CXRs. * Supplemental O2 as needed - titrate down as tolerated. * Continuous Pulse Oximetry GI - * Acute Cholecystitis - s/p ERCP/Laparoscopic Cholecystectomy: * Per General Surgery Recommendations. * Continue Antibiotics - Zosyn. * Transaminitis 2/2 acute cholecystitis - trend LFTs. * Elevated Lipase 2/2 leeanna - trend Lipase * Diet per surgical services. * Prophylaxis - Protonix RENAL/LYTES - * PARAMJIT on presentation - resolved * Will hold fluids at this point in the setting of volume overload. * Will reassess as volume status allows. * Plan for progression of diet. * Hypokalemia (3.4): * Will replace. - * No Perez Catheter at this time. * Will reassess as patient diuresis from Lasix administration. Would rather avoid additional fomite source in septic patient. * Strict I&Os ENDO - * No h/o DM or Thyroid Disease. * Monitor BSGs - ISS PRN HEME - * Stable H&H - Monitor Daily. * Leukocytosis - leeanna/sepsis. ID - * Sepsis with Gram Negative Bacteremia: * Blood Cultures POSITIVE x2 - Sensitivities Pending. * Continue Zosyn. LINES/IV ACCESS - * PIVs intact DVT PROPHYLAXIS - * Hold Chemoprophylaxis s/p recent surgical intervention. * Restart at surgeon's recommendations. * SCDs. I have personally spent 35 minutes of critical care time in the direct management of this patient. This is a life/limb threatening event. This includes time spent evaluating patient, direct bedside care, chart review, placing orders, interpretation of diagnostic studies, discussion with consultants, patient, and family members, as well as other required patient management activities. This time is exclusive of all separately billable procedures, and teaching time and separate from and in addition to any other critical care service time. Thank you for this consultation allow us to be part of this patient's care. Please refer to my attending physician's documentation for any further recommendations. ADDENDUM: (10/04/2017 @0125) Initial troponin levels were slightly elevated. Patient diuresed approximately 3 L of fluid with minimal resolve of O2 requirement or hypertension. With this, combined with low grade fever, CTA was ordered for evaluation of pulmonary emboli prior to starting the patient on any antihypertensive agents. I have seen the patient and examined by myself. The patient received 40 mg of IV Lasix. He put out almost three L of fluids and his breathing seems to be stabilizing, but still hypoxia. The patient also had the CT of the chest to R/O if there is any evidence of PE and it was reported as no evidence of PE. The patient has been coughing and trying to clear the secretions, but very thick. No hemoptysis. Will continue with plan of care as prescribed by my colleague Michael Caban and agree with his recommendations. DR. Trish [facility] Problem Qualifiers (1) Volume overload: Hypervolemia type: unspecified Qualified Codes: E87.70 - Fluid overload, unspecified
[2017-10-03] MEDS ORDERED: FUROSEMIDE INJ 40 MG in SYRINGE 0 ML IV ONE (21:00)
--- NOTE | 2017-10-03 21:00 | NUR ---
A:PATIENT PLACED ON BIPAP / + 40% BY RESP THERAPY-PATIENT MEDICATED WITH LASIX 40 MG IV ACCORDING TO EMAR-PATIENT REPORTS IMPROVEMENT IN PAIN AFTER MORPHINE IV DOSE
--- NOTE | 2017-10-03 21:30 | NUR ---
A:PATIENT OOB WITH ASSIST X1 TO SIT IN CHAIR-PATIENT REMAINS ON BIPAP-SAFETY MAINTAINED
[2017-10-03] MEDS ORDERED: POTASSIUM CHLORIDE 20 MEQ TABCR PO STA (21:58)
[2017-10-03] MEDS ORDERED: ICU PROTOCOL FOR HYPERGLYCEMIA PRN (22:00)
[2017-10-03] MEDS ORDERED: LORAZEPAM 2 MG/ML 1 ML VIAL IV PRN (22:00)
--- NOTE | 2017-10-03 22:00 | NUR ---
A:PATIENT REMAINS COMFORTABLE SITTING IN CHAIR WHILE WEARING BIPAP-AGILE SCRUM COACH DISPLAYS SR HR 80-90S-FIO2 DECREASED TO 30%
[2017-10-03 23:20] LABS: CKMB 0.6 ng/ml (0.5-3.6); PHOSPHORUS 1.8 mg/dl (2.5-4.9)
--- NOTE | 2017-10-03 23:45 | NUR ---
A:PATIENT BACK TO BED WITH ASSIST X1-CARLOS CHÁVEZ AWARE OF RECENT TROPONIN RESULTS-EKG PERFORMED-PATIENT C/O RIGHT SIDE ABDOMINAL PAIN 03/16 AND MEDICATED WITH MORPHINE 2 MG IV FOR COMFORT-RIGHT SIDED ABDOMINAL DRESSING SATURATED AND REINFORCED WITH 4X4 DRESSING AND MEDIPORE TAPE-PATIENT REMAINS ON BIPAP 07/11 + 30%
[2017-10-04] VITALS (19 sets, daily range): BP systolic 135–181; BP diastolic 78–107; PULSE 77–107; TEMP 36.8–37.5; O2SAT 92–98
--- NOTE | 2017-10-04 | NUR ---
A:PATIENT RESTING COMFORTABLY IN BED-SBP 170S-WHARF LABORER DISPLAYS SR HR 80S-SEE EMR FOR COMPLETE WAX BLEACHER-CARLOS CHÁVEZ AWARE OF BP-CT CHEST ORDERED-PATIENT AWARE OF PLAN-DBS HEARD-RIGHT ABDOMINAL SURGICAL SITE INTACT WITH MCKENNA DRAIN-PATIENT REMAINS ON BIPAP 07/11 + 30%-SAFETY MAINTAINED
[2017-10-04] MEDS ORDERED: OPTIRAY 320 IV PRN (00:15)
[2017-10-04] MEDS: HYDROmorphone INJ 0.5 MG/0.5 ML SYR IV PRN ×6 (00:39→21:09)
--- NOTE | 2017-10-04 00:45 | NUR ---
A:NEW #18 IV SITE PLACED IN LEFT AC-PATIENT PLACED ON 8L OXYMASK-PATIENT C/O RIGHT SIDED ABDOMINAL PAIN 03/16 AND MEDICATED WITH DILAUDID 0.5 MG IV FOR COMFORT-PATIENT TRANSPORTED TO CT SCAN VIA BED ON MONITOR AND O2
--- NOTE | 2017-10-04 01:10 | NUR ---
A:PATIENT RETURNS FROM CT SCAN IN STABLE CONDITION-FARMER AND GRAZIER DISPLAYS SR HR 56-64A-RTSRCMU PLACED BACK ON BIPAP 07/11 + 30%-SAFETY MAINTAINED
--- NOTE | 2017-10-04 02:00 | NUR ---
A:HANDICAPPED TEACHER DISPLAYS SR HR 70S-PATIENT REMAINS ON BIPAP-RIGHT ABDOMINAL SURGICAL SITE INTACT AND UNCHANGED WITH MCKENNA DRAIN IN PLACE-SAFETY MAINTAINED
[2017-10-04] MEDS ORDERED: HydrALAZINE HCL 20 MG/ML VIAL IV. STA (03:21)
[2017-10-04] MEDS: PIPERACILL/TAZOBAC IV 3.375 GM in DEXTROSE 5% 100ML IV SCH ×3 (03:48→19:31)
--- NOTE | 2017-10-04 04:00 | NUR ---
A:PATIENT OOB WITH ASSIST X1 TO AMBULATE AND VOID IN BATHROOM-ASSISTANT STATISTICIAN DISPLAYS SR HR 80-90S-SEE EMR FOR COMPLETE PRECISION PRINTING WORKER-SBP 180S-PATIENT MEDICATED WITH HYDRALAZINE 10 MG IV ACCORDING TO EMAR-PATIENT REQUESTING BIPAP MASK OFF-O2 CHANGED TO 4L NC-DBS HEARD-RIGHT ABDOMINAL SURGICAL SITE REMAINS INTACT WITH MODERATE AMOUNT OF STAINING-MCKENNA DRAIN INTACT AND EMPTIED FOR 10 CC OF BLOODY DRAINAGE-SAFETY MAINTAINED
--- NOTE | 2017-10-04 05:00 | NUR ---
A:SAO2 88% ON 4L NC-O2 CHANGED TO 4L OXYMASK-1 INCH NITRO PASTE ORDERED AND PLACED ON RIGHT UPPER ARM
[2017-10-04] MEDS: NITROGLYCERIN OINT 2% 1GM PACKET EXT SCH ×2 (05:04→10:07)
--- NOTE | 2017-10-04 05:45 | NUR ---
A:LABS COLLECTED AT BEDSIDE-HWR=[id number] C/O RIGHT SIDED ABDOMINAL PAIN 03/16 AND MEDICATED WITH DILAUDID 0.5 MG IV FOR COMFORT
[2017-10-04 05:55] LABS: HEMATOCRIT 38.7 % (42-52); HEMOGLOBIN 13.3 g/dL (14.0-18.0); IG# 0.05 K/uL (0.00-0.02); LYMPH % 4.3 %; LYMPH ABS # 0.65 K/uL (1.2-3.4); MEAN CELL VOLUME 90.2 fL (80-100); MEAN CORPUSCULAR HGB CONC 34.4 g/dl (32-36); MEAN PLATELET VOLUME 11.3 fL (7.4-10.4); MONO % 7.3 %; MONO ABS # 1.11 K/uL (0.11-0.59); NEUT % 88.1 %; NEUT ABS # 13.42 K/uL (1.4-6.5); PLATELET COUNT 136 K/uL (130-400); RED CELL DISTRIBUTION WIDTH CV 13.1 % (11.5-14.5); RED CELL DISTRIBUTION WIDTH SD 42.9 fL (36.4-46.3); WHITE BLOOD COUNT 15.23 K/uL (4.8-10.8)
[2017-10-04 06:30] LABS: ALBUMIN 3.2 gm/dl (3.4-5.0); ALKALINE PHOSPHATASE 113 U/L (45-117); ALT/SGPT 273 U/L (12-78); AST/SGOT 88 U/L (15-37); BLOOD UREA NITROGEN 15 mg/dl (7-18); CALCIUM 8.7 mg/dl (8.5-10.1); CARBON DIOXIDE 26 mmol/L (21-32); CKMB < 0.5 ng/ml (0.5-3.6); CREATININE 1.02 mg/dl (0.60-1.40); GLUCOSE 122 mg/dl (70-99); LIPASE 404 U/L (73-393); POTASSIUM 3.9 mmol/L (3.5-5.1); SODIUM 137 mmol/L (136-145); TOTAL PROTEIN 6.8 gm/dl (6.4-8.2)
--- NOTE | 2017-10-04 06:45 | DIAGNOSTIC IMAGING REPORT ---
CT ANGIOGRAPHY OF THE CHEST, PULMONARY EMBOLUS PROTOCOL CLINICAL HISTORY: Hypoxia status post surgery. COMPARISON STUDY: Chest radiograph October 03, 2017. TECHNIQUE: Following IV administration of 86 mL of Optiray-320, helical axial images of the chest were obtained utilizing the pulmonary embolus protocol. Maximal intensity projections and sagittal and coronal reformats were viewed on an independent 3D workstation. IV contrast was administered without complication. A dose lowering technique was utilized adhering to the principles of ALARA. CT DOSE: 403.81 mGy.cm FINDINGS: No pulmonary emboli are identified. The heart is mildly enlarged. There is no pericardial effusion. There is no thoracic aortic dissection. Small right and trace left pleural effusions are noted. There are are diminished lung volumes with bilateral lower lobe airspace opacity. There is mild upper lobe airspace opacity is well. No pneumothorax is present. There is no pneumomediastinum. No suspicious osseous lesions are shown within the bony thorax. Visualized portions of the upper abdomen partially visualize a right upper quadrant drain. IMPRESSION: 1. No pulmonary emboli identified. 2. Small right and trace left pleural effusions. Diminished lung volumes with extensive bilateral lower lobe airspace opacity and mild groundglass upper lobe opacities. This airspace opacity favors atelectasis. An infectious etiology could appear similar. Electronically signed by: Rigo Mars M.D. 10/04/2017 6:43 AM Dictated Date/Time: 10/04/2017 6:34 AM
--- NOTE | 2017-10-04 07:15 | NUR ---
a: c/o abdl pain, 02/13, medicated with dilaudid
--- NOTE | 2017-10-04 07:39 | DIAGNOSTIC IMAGING REPORT ---
CHEST ONE VIEW PORTABLE HISTORY: Congestive heart failure. Short of breath. COMPARISON: Chest 09/25/2017. FINDINGS: No pneumothorax. Trace bilateral pleural effusions. The heart is mildly enlarged. Low lung volumes. The upper lung zones are clear. No evidence for pulmonary edema. Bibasilar linear densities. IMPRESSION: 1. No significant change compared to the prior study. 2. Low lung volumes with bibasilar linear densities suggesting atelectasis. 3. Mild cardiomegaly and trace bilateral pleural effusions persist. Electronically signed by: Patrick Wilson M.D. 10/04/2017 7:37 AM Dictated Date/Time: 10/04/2017 7:36 AM
--- NOTE | 2017-10-04 07:40 | Surgery Progress Note ---
Surgery Progress Note Date of Service Oct 04, 2017. Subjective Post OP Day: 1 + diet (clears), No nausea Objective Vital Signs: Date Time Temp Pulse Resp B/P (MAP) Pulse Ox O2 Delivery O2 Flow Rate FiO2 10/04/17 06:00 84 16 172/101 (124) 95 Oxymask 4.0 10/04/17 04:00 92 Nasal Cannula 4.0 10/04/17 04:00 37.0 92 15 181/106 (131) 92 Nasal Cannula 4.0 10/04/17 02:00 77 12 176/107 (130) 95 BiPAP 30 10/04/17 00:01 37.5 81 14 176/107 (130) 92 BiPAP 30 10/03/17 23:59 92 BiPAP 30 10/03/17 22:00 92 12 183/111 (135) 95 Oxymask 30 10/03/17 20:31 84 97 30 10/03/17 20:00 37.7 90 12 183/103 (129) 94 Oxymask 8.0 10/03/17 20:00 94 Oxymask 8.0 10/03/17 19:00 37.6 90 15 95 8.0 10/03/17 18:45 90 15 170/92 95 Oxymask 8 10/03/17 18:35 37.6 97 17 155/90 96 Oxymask 8 10/03/17 18:25 38.0 108 24 172/100 93 Oxymask 8 10/03/17 18:15 98 19 171/98 95 Oxymask 10 10/03/17 18:05 117 19 137/100 94 Nasal Cannula 5 10/03/17 17:55 116 19 134/89 91 Mask 7 10/03/17 17:45 106 14 167/95 95 Mask 13 10/03/17 17:35 104 17 161/85 86 Mask 13 10/03/17 17:25 106 15 165/100 92 Mask 13 10/03/17 17:17 36.9 110 22 133/93 87 Mask 13 10/03/17 15:00 Room Air 10/03/17 13:29 178/72 (107) 10/03/17 12:00 93 Room Air 10/03/17 11:41 37.3 77 18 187/96 (126) 90 183/103 (129) 12/28/17 08:00 93 Room Air Physical Exam: MCKENNA drainage (80/10 serosang), urine output (2100/1800) Abdomen: soft, + distended (minimal) Laboratory Results: Results Past 24 Hours Test 10/03/17 21:58 10/03/17 22:24 10/03/17 22:40 10/04/17 05:46 Range/Units Creatine Kinase MB Ratio 0-3.0 Bedside Glucose 155 70-99 mg/dl Phosphorus Level 1.8 2.5-4.9 mg/dl Magnesium Level 2.1 1.8-2.4 mg/dl Creatine Kinase MB 0.6 < 0.5 0.5-3.6 ng/ml Troponin I 0.071 0.047 0-0.045 ng/ml White Blood Count 15.23 4.8-10.8 K/uL Red Blood Count 4.29 4.7-6.1 M/uL Hemoglobin 13.3 14.0-18.0 g/dL Hematocrit 38.7 42-52 % Mean Corpuscular Volume 90.2 80-100 fL Mean Corpuscular Hemoglobin 31.0 25-34 pg Mean Corpuscular Hemoglobin Concent 34.4 32-36 g/dl Platelet Count 136 130-400 K/uL Mean Platelet Volume 11.3 7.4-10.4 fL Neutrophils (%) (Auto) 88.1 % Lymphocytes (%) (Auto) 4.3 % Monocytes (%) (Auto) 7.3 % Eosinophils (%) (Auto) 0.0 % Basophils (%) (Auto) 0.0 % Neutrophils # (Auto) 13.42 1.4-6.5 K/uL Lymphocytes # (Auto) 0.65 1.2-3.4 K/uL Monocytes # (Auto) 1.11 0.11-0.59 K/uL Eosinophils # (Auto) 0.00 0-0.5 K/uL Basophils # (Auto) 0.00 0-0.2 K/uL RDW Standard Deviation 42.9 36.4-46.3 fL RDW Coefficient of Variation 13.1 11.5-14.5 % Immature Granulocyte % (Auto) 0.3 % Immature Granulocyte # (Auto) 0.05 0.00-0.02 K/uL Sodium Level 137 136-145 mmol/L Potassium Level 3.9 3.5-5.1 mmol/L Chloride Level 102 98-107 mmol/L Carbon Dioxide Level 26 21-32 mmol/L Anion Gap 8.0 3-11 mmol/L Blood Urea Nitrogen 15 7-18 mg/dl Creatinine 1.02 0.60-1.40 mg/dl Est Creatinine Clear Calc Drug Dose 93.9 ml/min Estimated GFR () 93.5 Estimated GFR (Non- 80.6 BUN/Creatinine Ratio 15.1 10-20 Random Glucose 122 70-99 mg/dl Calcium Level 8.7 8.5-10.1 mg/dl Total Bilirubin 1.6 0.2-1 mg/dl Aspartate Amino Transf (AST/SGOT) 88 15-37 U/L Alanine Aminotransferase (ALT/SGPT) 273 12-78 U/L Alkaline Phosphatase 113 45-117 U/L Total Protein 6.8 6.4-8.2 gm/dl Albumin 3.2 3.4-5.0 gm/dl Globulin 3.6 2.5-4.0 gm/dl Albumin/Globulin Ratio 0.9 0.9-2 Lipase 404 73-393 U/L Microbiology Results 10/03/17 MRSA DNA Surveillance Screen - Final, Complete Specimen Negative for MRSA by DNA Probe Assessment & Plan POD 1 lap leeanna, day 2 s/p ERCP for cholecystitis/cholangitis/pancreatitis post op hypoxia, hypertension, diuresed 3 liters more comfortable this AM LFT's, lipase improved troponin trending down this AM, for echo today ok to advance diet
--- NOTE | 2017-10-04 08:00 | NUR ---
a: pt "comfortable", sitting up in bed with clear liq breakfast tray. spo2 93% on 4lpm nc in upright position. a/o. lungs cta/dim bases. SR 80-90s. sbp 160s after hydralazine and ntg paste, pain control. hypo bs, abdm softly distended. lap leeanna surgical drsgs with drainage circled, magnolia to bulb suction with minimal bloody drainage. adequate u/o, no difficulties voiding. surgical service visited/updated. see emr further detail.
--- NOTE | 2017-10-04 08:06 | Anesthesiology Progress Note ---
Anesthesia Post Op Note Date & Time Oct 04, 2017 at 08:05 Vital Signs Pain Intensity: 6.0 Vital Signs Past 12 Hours Date Time Temp Pulse Resp B/P (MAP) Pulse Ox O2 Delivery O2 Flow Rate FiO2 10/04/17 06:00 84 16 172/101 (124) 95 Oxymask 4.0 10/04/17 04:00 92 Nasal Cannula 4.0 10/04/17 04:00 37.0 92 15 181/106 (131) 92 Nasal Cannula 4.0 10/04/17 02:00 77 12 176/107 (130) 95 BiPAP 30 10/04/17 00:01 37.5 81 14 176/107 (130) 92 BiPAP 30 10/03/17 23:59 92 BiPAP 30 10/03/17 22:00 92 12 183/111 (135) 95 Oxymask 30 10/03/17 20:31 84 97 30 Notes Mental Status: alert / awake / arousable, participated in evaluation Pt Amnestic to Procedure: Yes Nausea / Vomiting: adequately controlled Pain: adequately controlled Airway Patency, RR, SpO2: stable & adequate BP & HR: stable & adequate Hydration State: stable & adequate Anesthetic Complications: no major complications apparent ventilatory status improving, will continue to follow
--- NOTE | 2017-10-04 08:19 | Clinical Documentation Query ---
MARCELA Martinez : CLINICAL DOCUMENTATION QUERY Patient is a 56 year old male who on 10/03 underwent a lap leeanna under general anesthesia with concerns for hypoxia and volume overload postoperatively requiring transfer to ICU from PACU. Seen by people greeter in consultation and administered supplemental O2, Lasix, BiPAP, telemetry, and further evaluated with echocardiogram, EKG, continuous pulse oximetry. As appropriate, consider capture of this condition as suggested below as this imparts the same severity of illness and risk of mortality as acute postoperative respiratory failure yet is not a complication of care. In your clinical opinion is this patient being managed for: ( x ) Acute postoperative pulmonary insufficiency (not a complication of care) ( ) Not Agree ( ) Other explanation of clinical findings (Please Explain) ( ) Unable to determine (Please Define) ( ) Need to Discuss The medical record reflects the following clinical findings, treatment, and risk factors. Clinical Indicators: As above Treatment:Seen by people greeter in consultation and administered supplemental O2, Lasix, BiPAP, telemetry, and further evaluated with echocardiogram, EKG, continuous pulse oximetry Risk Factors: Sepsis, IVF administration, surgery, hypertension Please clarify and document your clinical opinion in the progress notes and discharge summary. Terms such as "probable", "suspected", "likely", "questionable", "possible", or "still to be ruled out" are acceptable. IF IN AGREEMENT, YOU MUST DOCUMENT ABOVE DIAGNOSTIC STATEMENT IN DAILY PROGRESS NOTES AND DISCHARGE SUMMARY. This document is not part of the patient's record. Thank You, Sarkis Bustos, RN [phone]
[2017-10-04] MEDS ORDERED: POTASSIUM PHOS 3 MMOL/1 ML INFUSION IV STA (08:30)
[2017-10-04] MEDS ORDERED: LEVALBUTEROL 1.25MG/0.5ML NEB INH PRN (08:45)
[2017-10-04] MEDS ORDERED: IPRATROPIUM BROMIDE NEB SOLN 0.02% 2.5 ML VIAL INH PRN (08:45)
[2017-10-04] MEDS: ACETYLCYSTEINE 20% INHAL SOLN ***DISPENSED BY RESP. INH SCH ×3 (08:54→23:02)
[2017-10-04] MEDS: IPRATROPIUM BROMIDE NEB SOLN 0.02% 2.5 ML VIAL INH SCH ×3 (08:54→19:53)
[2017-10-04] MEDS: LEVALBUTEROL 1.25MG/0.5ML NEB INH SCH ×3 (08:54→19:53)
[2017-10-04] MEDS ORDERED: POTASSIUM PHOSPHATE INJ 15 MMOL in SODIUM CHLORIDE 0.9% 250ML 250 ML IV ONE (09:00)
[2017-10-04] MEDS: PANTOprazole INJ 40 MG in SYRINGE 0 ML IV SCH ×2 (09:12→21:06)
[2017-10-04] MEDS: ATORVASTATIN 40 MG TAB PO SCH (09:12)
--- NOTE | 2017-10-04 10:00 | NUR ---
a: up to brp, a.m. care with setup. spo2 93-94% on O2 nc, down to 2lpm. had neb, used flutter valve, sitting oob chair since 8:15 am.
--- NOTE | 2017-10-04 11:36 | CARDIOLOGY CONSULTATION ---
DATE OF CONSULTATION: 10/04/2017 REFERRING PHYSICIAN: Babita barragan. REASON FOR CONSULTATION: Chest pain. HISTORY OF PRESENT ILLNESS: This is a 56-year-old male who presented with acute cholecystitis. He underwent an ERCP and eventually had a cholecystectomy performed by surgery. He did well through those procedures and is convalescing in the ICU. At some point during his hospital stay or on presentation, he had some chest pain. His cardiac troponins on 10/03/2017 peaked at 0.071. The patient went on to have his surgeries out difficulties or instability. He has no prior history of heart disease. No major risk factors for heart disease. He denies hypertension, diabetes, strokes, kidney disease, family medical history or smoking. His EKG on admission showed sinus tachycardia and was otherwise within normal limits. ALLERGIES: No known medical allergies. PAST MEDICAL HISTORY: As outlined in the history of chief complaint. The patient has no prior history of heart disease. He was treated for some hyperlipidemia. No prior history of diabetes, hypertension, strokes or kidney disease. SOCIAL HISTORY: He stopped smoking in 1983. He is and lives with his . FAMILY MEDICAL HISTORY: Noncontributory. REVIEW OF SYSTEMS: A 10-point review of systems is negative except for the history of chief complaint. PHYSICAL EXAMINATION: GENERAL: He is alert and oriented and comfortably sitting in a chair. VITAL SIGNS: Blood pressure 135/100, pulse is regular at 100 beats per minute. He is afebrile. HEENT: He is normocephalic. Pupils are equal and reactive to light. Extraocular muscles are intact bilaterally. NECK: The neck veins are flat. Carotids have good upstrokes bilaterally without bruits. Thyroid is nonpalpable. RESPIRATORY: Breath sounds equal bilaterally and clear to auscultation. CARDIOVASCULAR: Heart has a regular rhythm. Normal S1, S2. No S3, S4. No cardiac rubs or murmurs. GASTROINTESTINAL: Abdomen is soft, nontender without organomegaly. EXTREMITIES: Free of edema, digit clubbing, or cyanosis. NEUROLOGIC: Grossly intact. SKIN: Warm to touch. LYMPH NODES: Negative to palpation. IMPRESSION: 1. Noncardiac chest pain. 2. Acute cholecystitis status post cholecystectomy. 3. Hypertension. RECOMMENDATIONS: I do not believe any additional cardiac testing is indicated. His troponin elevation is type 2 and non-cardiac. He has not been on blood pressure medications as an outpatient. I would just monitor his blood pressure and if he needs something then he could start an EBER inhibitor or ARB.
--- NOTE | 2017-10-04 11:49 | Gastroenterology Progress Note ---
Progress Note Date of Service: Oct 04, 2017 Subjective Pt evaluation today including: conversation w/ patient, conversation w/ family , physical exam, chart review, lab review, review of inpatient medication list Pt transferred to ICU for HTN and hypoxia last night post cholecystectomy. Currently stable. He is having some abd pain but ok. Blood cx growing Klebsiella pneumoniae. Lipase, LFTs trending down. Review of Systems Constitutional: No fever, No chills Respiratory: + cough, + shortness of breath Cardiac: No chest pain Abdomen: + pain, No nausea, No vomiting Skin: No rash, No itch, No jaundice Medications Current Inpatient Medications Medications (Trade) Dose Ordered Sig/Sahara Route Start Time Stop Time Status Last Admin Dose Admin Ondansetron HCl (Zofran Inj) 4 mg Q6H PRN IV 10/01/17 23:00 10/31/17 22:59 10/02/17 06:00 4 MG Acetaminophen (Tylenol Tab) 500 mg Q6H PRN PO 10/01/17 23:00 10/31/17 22:59 10/01/17 23:24 500 MG Piperacillin Sod/ Tazobactam Sod (Consult) 1 ea DAILY PRN N/A 10/01/17 23:47 10/31/17 23:46 Morphine Sulfate (MoRPHine SULFATE INJ) 2 mg Q4 PRN IV 10/01/17 23:15 10/15/17 23:14 10/03/17 23:43 2 MG Metoclopramide HCl (Reglan Inj) 10 mg Q6H PRN IV 10/01/17 23:15 10/31/17 23:14 10/03/17 05:07 10 MG Atorvastatin Calcium (Lipitor Tab) 40 mg DAILY PO 10/03/17 09:00 11/02/17 08:59 10/04/17 09:12 40 MG Diphenhydramine HCl (Benadryl Cap) 25 mg HS PRN PO 10/02/17 10:30 11/01/17 10:29 Pantoprazole Sodium 40 mg/ Syringe 10 ml @ 5 mls/min BID IV 10/02/17 21:00 11/01/17 20:59 10/04/17 09:12 5 MLS/MIN Guaifenesin (Organidin Nr Tab) 200 mg Q4H PRN PO 10/02/17 23:45 11/01/17 23:44 10/03/17 00:06 200 MG Hydromorphone HCl (Dilaudid Inj) 0.5 mg Q1H PRN IV 10/03/17 17:15 10/17/17 17:14 10/04/17 10:10 0.5 MG Piperacillin Sod/ Tazobactam Sod 3.375 gm/Dextrose 115 ml @ 28.75 mls/ hr Q8H IV 10/03/17 20:00 10/12/17 11:59 10/04/17 03:48 28.75 MLS/HR Miscellaneous Information (Icu Protocol For Hyperglycemia) 1 ea PRN PRN N/A 10/03/17 22:00 10/05/17 21:59 Lorazepam (Ativan Inj) 1 mg ONE PRN IV 10/03/17 22:00 Ioversol (Optiray 320) 125 ml UD PRN IV 10/04/17 00:15 10/08/17 00:14 Ipratropium [place] (Atrovent 0.02% 0.5MG/2.5ML Neb) 0.5 mg Q6R INH 10/04/17 09:00 11/03/17 08:59 10/04/17 08:54 0.5 MG Levalbuterol (Xopenex 1.25MG/ 0.5ML Neb) 1.25 mg Q6R INH 10/04/17 09:00 11/03/17 08:59 10/04/17 08:54 1.25 MG Potassium Phosphate 15 mmol/ Sodium Chloride 255 ml @ 88 mls/hr ONE ONCE IV 10/04/17 09:00 10/04/17 11:53 10/04/17 09:12 88 MLS/HR Levalbuterol (Xopenex 1.25MG/ 0.5ML Neb) 1.25 mg Q3H PRN INH 10/04/17 08:45 11/03/17 08:44 Ipratropium [place] (Atrovent 0.02% 0.5MG/2.5ML Neb) 0.5 mg Q3H PRN INH 10/04/17 08:45 11/03/17 08:44 Acetylcysteine (Mucomyst 20% Inh Soln) 3 ml Q8R INH 10/04/17 09:00 11/03/17 08:59 10/04/17 08:54 3 ML Nitroglycerin (Nitroglycerin 2% Oint) 1 inch Q6H EXT 10/04/17 16:00 11/03/17 03:59 Objective Vital Signs Date Time Temp Pulse Resp B/P (MAP) Pulse Ox O2 Delivery O2 Flow Rate FiO2 10/04/17 10:07 105 20 135/100 (112) 94 Nasal Cannula 2.0 10/04/17 09:02 104 21 93 Nasal Cannula 4.0 10/04/17 09:00 98 24 157/89 (111) 93 Nasal Cannula 2.0 10/04/17 08:00 37.0 91 16 162/98 (119) 94 Nasal Cannula 4.0 10/04/17 08:00 93 Nasal Cannula 4.0 10/04/17 06:00 84 16 172/101 (124) 95 Oxymask 4.0 10/04/17 04:00 92 Nasal Cannula 4.0 10/04/17 04:00 37.0 92 15 181/106 (131) 92 Nasal Cannula 4.0 10/04/17 02:00 77 12 176/107 (130) 95 BiPAP 30 10/04/17 00:01 37.5 81 14 176/107 (130) 92 BiPAP 30 10/03/17 23:59 92 BiPAP 30 10/03/17 22:00 92 12 183/111 (135) 95 Oxymask 30 10/03/17 20:31 84 97 30 10/03/17 20:00 37.7 90 12 183/103 (129) 94 Oxymask 8.0 10/03/17 20:00 94 Oxymask 8.0 10/03/17 19:00 37.6 90 15 95 8.0 10/03/17 18:45 90 15 170/92 95 Oxymask 8 10/03/17 18:35 37.6 97 17 155/90 96 Oxymask 8 10/03/17 18:25 38.0 108 24 172/100 93 Oxymask 8 10/03/17 18:15 98 19 171/98 95 Oxymask 10 10/03/17 18:05 117 19 137/100 94 Nasal Cannula 5 10/03/17 17:55 116 19 134/89 91 Mask 7 10/03/17 17:45 106 14 167/95 95 Mask 13 10/03/17 17:35 104 17 161/85 86 Mask 13 10/03/17 17:25 106 15 165/100 92 Mask 13 10/03/17 17:17 36.9 110 22 133/93 87 Mask 13 10/03/17 15:00 Room Air 10/03/17 13:29 178/72 (107) 10/03/17 12:00 93 Room Air Physical Exam General Appearance: WD/WN, no apparent distress Eyes: PERRL, EOMI Neck: supple, no JVD, trachea midline Respiratory/Chest: no respiratory distress, no accessory muscle use, + decreased breath sounds Cardiovascular: regular rate, rhythm, no gallop, no murmur Abdomen: soft, + tenderness (RUQ ), + pertinent finding (MCKENNA drain to RUQ area w serosangenous fluid ) Extremities: normal inspection, no pedal edema, no calf tenderness Neurologic/Psych: alert, normal mood/affect, oriented x 3 Skin: normal color, no rash, + jaundice (improved ) Laboratory Results Last 24 Hours Test 10/03/17 21:58 10/03/17 22:24 10/03/17 22:40 10/04/17 05:46 Creatine Kinase MB Ratio Bedside Glucose 155 mg/dl Phosphorus Level 1.8 mg/dl 2.0 mg/dl Magnesium Level 2.1 mg/dl Creatine Kinase MB 0.6 ng/ml < 0.5 ng/ml Troponin I 0.071 ng/ml 0.047 ng/ml White Blood Count 15.23 K/uL Red Blood Count 4.29 M/uL Hemoglobin 13.3 g/dL Hematocrit 38.7 % Mean Corpuscular Volume 90.2 fL Mean Corpuscular Hemoglobin 31.0 pg Mean Corpuscular Hemoglobin Concent 34.4 g/dl Platelet Count 136 K/uL Mean Platelet Volume 11.3 fL Neutrophils (%) (Auto) 88.1 % Lymphocytes (%) (Auto) 4.3 % Monocytes (%) (Auto) 7.3 % Eosinophils (%) (Auto) 0.0 % Basophils (%) (Auto) 0.0 % Neutrophils # (Auto) 13.42 K/uL Lymphocytes # (Auto) 0.65 K/uL Monocytes # (Auto) 1.11 K/uL Eosinophils # (Auto) 0.00 K/uL Basophils # (Auto) 0.00 K/uL RDW Standard Deviation 42.9 fL RDW Coefficient of Variation 13.1 % Immature Granulocyte % (Auto) 0.3 % Immature Granulocyte # (Auto) 0.05 K/uL Sodium Level 137 mmol/L Potassium Level 3.9 mmol/L Chloride Level 102 mmol/L Carbon Dioxide Level 26 mmol/L Anion Gap 8.0 mmol/L Blood Urea Nitrogen 15 mg/dl Creatinine 1.02 mg/dl Est Creatinine Clear Calc Drug Dose 93.9 ml/min Estimated GFR () 93.5 Estimated GFR (Non- 80.6 BUN/Creatinine Ratio 15.1 Random Glucose 122 mg/dl Calcium Level 8.7 mg/dl Total Bilirubin 1.6 mg/dl Aspartate Amino Transf (AST/SGOT) 88 U/L Alanine Aminotransferase (ALT/SGPT) 273 U/L Alkaline Phosphatase 113 U/L Total Protein 6.8 gm/dl Albumin 3.2 gm/dl Globulin 3.6 gm/dl Albumin/Globulin Ratio 0.9 Lipase 404 U/L Assessment and Plan Patient is a 56 year old male presented w RUQ abd pain, n/v, fever, chills. Labs showed elevated LFTs, Lipase, CT scan & u/s concerning for cholelithiasis w acute cholecystitis and likely gallstone pancreatitis. ERCP w sphincterectomy done 10/[address] Interiano. Biliary sludge and pus noted (cholangitis). H/H stable, Tbili up but rest of LFTs and Lipase trending down. WBC 17->13->15. He is still on Zosyn. Blood cx grew Klebsiella pneumoniae Taken to OR for lap cholecystectomy yesterday. Developed HTN and hypoxia post op , transferred to ICU. Currently stable. LFTs, Lipase continue to trend down. Plans - PPI IV BID - Avoid NSAIDs, ASA 1 weeks after sphincterectomy is performed. - Continue Zosyn IV for cholangitis. - Monitor LFTs and Lipase - Diet advancement per surgery - GI will watch peripherally, call if new questions/concerns arise. ATTESTATION: I have performed a history and physical examination of this patient and reviewed the electronic record. Specifically, on physical examination there is mild abdominal tenderness and resolution of jaundice. I have discussed the case with DORINA Valdes. The above note reflects my findings, conclusions, and recommendations. Carmine Interiano MD
[2017-10-04] MEDS: ACETAMINOPHEN 500 MG TAB PO PRN ×2 (11:55→19:27)
--- NOTE | 2017-10-04 12:00 | NUR ---
a: reassessed as charted. oob all morning. stayed with "clears" for lunch. denies nausea. ambulating to brp prn, no issues with activity tolerance. remains on 2lpm o2 nc with spo2 mid 90s. using triflo, 1750 up. pain well controlled with prn iv meds.
--- NOTE | 2017-10-04 14:00 | NUR ---
a: sleeping, appears comfortable. back to bed after lunch.
[2017-10-04 14:36] LABS: CKMB < 0.5 ng/ml (0.5-3.6)
[2017-10-04 14:38] LABS: CALCIUM 8.9 mg/dl (8.5-10.1); CREATININE 1.04 mg/dl (0.60-1.40); POTASSIUM 3.8 mmol/L (3.5-5.1)
--- NOTE | 2017-10-04 15:06 | Critical Care Progress Note ---
Critical Care Progress Note Date of Service Oct 04, 2017. ICU Day ICU Day Number: [address] Moya Subjective 56 year old male S/Post Laparoscopic cholecystectomy and initially had pus drainage, but has improved significantly. Also patient was given IV lasix and had put out more than 3 L urine. The patient has minimal drainage from the tube. Breathing has improved significantly. He has minimal cough and able to clear secretions. Oxygenation has also improved. Has some pain around the operated site. Denies any N/Vomiting. Overall seems to be doing better and is slowly improving. Able to tolerate his PO intake. Objective Middle aged male lying comfortably in the bed and is not in any acute distress. VITAL SIGNS - Vital signs and nursing notes were reviewed. GENERAL - 56-year-old male appearing his stated age who is in no acute distress. Communicates well with provider and answers questions appropriately. HEAD - NC/AT. EYES - PERRL with EOMI bilaterally. EARS - No deformities of external structures noted on gross examination bilaterally. NOSE - Midline and without cyanosis. MOUTH/OROPHARYNX - Without perioral cyanosis. Buccal mucosa pink and moist and without leukoplakia. Tongue midline with equal elevation of palate bilaterally. NECK - Neck with FROM. Supple to palpation. No nuchal rigidity. LUNGS - Chest wall symmetric without accessory muscle use, intercostals retractions, or central cyanosis. Normal vesicular breath sounds CTA B/L. Slight RIGHT lower lobe rales appreciated. No wheezes or rhonchi appreciated. CARDIAC - RRR with S1/S2. No murmur, rubs, or gallops appreciated. ABDOMEN - Abdominal contour protuberant and without pulsations or visible masses. Surgical dressings intact. Negative Bobby's or Le Wheeler's Signs. BS hypoactive all four quadrants. Mild tenderness to palpation appreciated throughout. No guarding. No Rebound Tenderness. EXTREMITIES - No clubbing or peripheral cyanosis. No pretibial edema present. +3 /5 radial and dorsalis pedis pulses palpated throughout. PSYCH - A&Ox3 and cooperates fully with examiner. Pt is very pleasant and interacts well with examiner. Assessment & Plan (1) Hypoxia (2) Volume overload (3) Transaminitis (4) Cholecystitis (5) Hyperlipidemia Neuro - * CAM ICU: NEGATIVE * Post-Surgical Pain - Morphine PRN * Has been taking one drink a day. On CIVA protocol. Will monitor. Cardiac - * No h/o CAD/HTN * Hyperlipidemia - continue home Rx. * New onset volume overload with no known h/o CAD/CHF/Valvular heart disease. The patient also received 6 L of fluid * Likely all 2/2 acute septic process, however stress-induced cardiomyopathies remain on the differential. The patient was diurased and put out significant urine. Feels better with his breathing. * Acute Volume Overload: * Likely 2/2 aggressive fluid resuscitation in the setting of sepsis. * Was on BiPAP T/O the night and did well. Putting out good urine and remains on 2 L NC O2 and is oxygenating well. * Monitor on telemetry. Respiratory - * Acute Hypoxia s/p General Anesthesia for Laparoscopic Cholecystectomy: * Likely 2/2 volume overload. * Lasix,was given and he has improved. * Supplemental O2 as needed - titrate down as tolerated. * Continuous Pulse Oximetry * Also was started on DuoNeb and Mucomyst and seems to be tolerating well. On Flutter valve and Incentive Spirometry. was recommended to do it as much as possible. GI - * Acute Cholecystitis - s/p ERCP/Laparoscopic Cholecystectomy: * Per General Surgery Recommendations. * Continue Antibiotics - Zosyn. * Transaminitis 2/2 acute cholecystitis - trend LFTs. * Elevated Lipase 2/2 leeanna - trend Lipase * Diet per surgical services. * Prophylaxis - Protonix RENAL/LYTES - * PARAMJIT on presentation - resolved * Will hold fluids at this point in the setting of volume overload. * Will reassess as volume status allows. * Plan for progression of diet. * Hypokalemia (3.4): * Will replace. - * No Perez Catheter at this time. * Will reassess as patient diuresis from Lasix administration. Would rather avoid additional fomite source in septic patient. * Strict I&Os ENDO - * No h/o DM or Thyroid Disease. * Monitor BSGs - ISS PRN HEME - * Stable H&H - Monitor Daily. * Leukocytosis - leeanna/sepsis. ID - * Sepsis with Gram Negative Bacteremia: * Blood Cultures POSITIVE x2 - Sensitivities Pending. * Continue Zosyn. LINES/IV ACCESS - * PIVs intact DVT PROPHYLAXIS - * Hold Chemoprophylaxis s/p recent surgical intervention. * Restart at surgeon's recommendations. * SCDs. * The patient is full code. Spent greater than 35 minutes of critical care time. Consults & Procedures Consultants: Surgery: Alexx Thompson Procedures: Laparoscopic Cholecystectomy. Data Medications: Current Inpatient Medications Medications (Trade) Dose Ordered Sig/Sahara Route Start Time Stop Time Status Last Admin Dose Admin Ondansetron HCl (Zofran Inj) 4 mg Q6H PRN IV 10/01/17 23:00 10/31/17 22:59 10/02/17 06:00 4 MG Acetaminophen (Tylenol Tab) 500 mg Q6H PRN PO 10/01/17 23:00 10/31/17 22:59 10/04/17 11:55 500 MG Piperacillin Sod/ Tazobactam Sod (Consult) 1 ea DAILY PRN N/A 10/01/17 23:47 10/31/17 23:46 Morphine Sulfate (MoRPHine SULFATE INJ) 2 mg Q4 PRN IV 10/01/17 23:15 10/15/17 23:14 10/03/17 23:43 2 MG Metoclopramide HCl (Reglan Inj) 10 mg Q6H PRN IV 10/01/17 23:15 10/31/17 23:14 10/03/17 05:07 10 MG Atorvastatin Calcium (Lipitor Tab) 40 mg DAILY PO 10/03/17 09:00 11/02/17 08:59 10/04/17 09:12 40 MG Diphenhydramine HCl (Benadryl Cap) 25 mg HS PRN PO 10/02/17 10:30 11/01/17 10:29 Pantoprazole Sodium 40 mg/ Syringe 10 ml @ 5 mls/min BID IV 10/02/17 21:00 11/01/17 20:59 10/04/17 09:12 5 MLS/MIN Guaifenesin (Organidin Nr Tab) 200 mg Q4H PRN PO 10/02/17 23:45 11/01/17 23:44 10/03/17 00:06 200 MG Hydromorphone HCl (Dilaudid Inj) 0.5 mg Q1H PRN IV 10/03/17 17:15 10/17/17 17:14 10/04/17 12:14 0.5 MG Piperacillin Sod/ Tazobactam Sod 3.375 gm/Dextrose 115 ml @ 28.75 mls/ hr Q8H IV 10/03/17 20:00 10/12/17 11:59 10/04/17 12:11 28.75 MLS/HR Miscellaneous Information (Icu Protocol For Hyperglycemia) 1 ea PRN PRN N/A 10/03/17 22:00 10/05/17 21:59 Lorazepam (Ativan Inj) 1 mg ONE PRN IV 10/03/17 22:00 Ioversol (Optiray 320) 125 ml UD PRN IV 10/04/17 00:15 10/08/17 00:14 Ipratropium [place] (Atrovent 0.02% 0.5MG/2.5ML Neb) 0.5 mg Q6R INH 10/04/17 09:00 11/03/17 08:59 10/04/17 08:54 0.5 MG Levalbuterol (Xopenex 1.25MG/ 0.5ML Neb) 1.25 mg Q6R INH 10/04/17 09:00 11/03/17 08:59 10/04/17 08:54 1.25 MG Levalbuterol (Xopenex 1.25MG/ 0.5ML Neb) 1.25 mg Q3H PRN INH 10/04/17 08:45 11/03/17 08:44 Ipratropium [place] (Atrovent 0.02% 0.5MG/2.5ML Neb) 0.5 mg Q3H PRN INH 10/04/17 08:45 11/03/17 08:44 Acetylcysteine (Mucomyst 20% Inh Soln) 3 ml Q8R INH 10/04/17 09:00 11/03/17 08:59 10/04/17 08:54 3 ML Nitroglycerin (Nitroglycerin 2% Oint) 1 inch Q6H EXT 10/04/17 16:00 11/03/17 03:59 Vital Signs: Date Time Temp Pulse Resp B/P (MAP) Pulse Ox O2 Delivery O2 Flow Rate FiO2 10/04/17 12:00 95 Nasal Cannula 4.0 10/04/17 12:00 37.1 88 15 145/85 (105) 95 Nasal Cannula 2.0 10/04/17 10:07 105 20 135/100 (112) 94 Nasal Cannula 2.0 10/04/17 09:02 104 21 93 Nasal Cannula 4.0 10/04/17 09:00 98 24 157/89 (111) 93 Nasal Cannula 2.0 10/04/17 08:00 37.0 91 16 162/98 (119) 94 Nasal Cannula 4.0 10/04/17 08:00 93 Nasal Cannula 4.0 10/04/17 06:00 84 16 172/101 (124) 95 Oxymask 4.0 10/04/17 04:00 92 Nasal Cannula 4.0 10/04/17 04:00 37.0 92 15 181/106 (131) 92 Nasal Cannula 4.0 10/04/17 02:00 77 12 176/107 (130) 95 BiPAP 30 10/04/17 00:01 37.5 81 14 176/107 (130) 92 BiPAP 30 10/03/17 23:59 92 BiPAP 30 10/03/17 22:00 92 12 183/111 (135) 95 Oxymask 30 10/03/17 20:31 84 97 30 10/03/17 20:00 37.7 90 12 183/103 (129) 94 Oxymask 8.0 10/03/17 20:00 94 Oxymask 8.0 10/03/17 19:00 37.6 90 15 95 8.0 10/03/17 18:45 90 15 170/92 95 Oxymask 8 10/03/17 18:35 37.6 97 17 155/90 96 Oxymask 8 10/03/17 18:25 38.0 108 24 172/100 93 Oxymask 8 10/03/17 18:15 98 19 171/98 95 Oxymask 10 10/03/17 18:05 117 19 137/100 94 Nasal Cannula 5 10/03/17 17:55 116 19 134/89 91 Mask 7 10/03/17 17:45 106 14 167/95 95 Mask 13 10/03/17 17:35 104 17 161/85 86 Mask 13 10/03/17 17:25 106 15 165/100 92 Mask 13 10/03/17 17:17 36.9 110 22 133/93 87 Mask 13 10/03/17 15:00 Room Air Laboratory Results: Last 24 Hours Test 10/03/17 21:58 10/03/17 22:24 10/03/17 22:40 10/04/17 05:43 Creatine Kinase MB Ratio Bedside Glucose 155 mg/dl 121 mg/dl Phosphorus Level 1.8 mg/dl Magnesium Level 2.1 mg/dl Creatine Kinase MB 0.6 ng/ml Troponin I 0.071 ng/ml Test 10/04/17 05:46 10/04/17 13:58 White Blood Count 15.23 K/uL Red Blood Count 4.29 M/uL Hemoglobin 13.3 g/dL Hematocrit 38.7 % Mean Corpuscular Volume 90.2 fL Mean Corpuscular Hemoglobin 31.0 pg Mean Corpuscular Hemoglobin Concent 34.4 g/dl Platelet Count 136 K/uL Mean Platelet Volume 11.3 fL Neutrophils (%) (Auto) 88.1 % Lymphocytes (%) (Auto) 4.3 % Monocytes (%) (Auto) 7.3 % Eosinophils (%) (Auto) 0.0 % Basophils (%) (Auto) 0.0 % Neutrophils # (Auto) 13.42 K/uL Lymphocytes # (Auto) 0.65 K/uL Monocytes # (Auto) 1.11 K/uL Eosinophils # (Auto) 0.00 K/uL Basophils # (Auto) 0.00 K/uL RDW Standard Deviation 42.9 fL RDW Coefficient of Variation 13.1 % Immature Granulocyte % (Auto) 0.3 % Immature Granulocyte # (Auto) 0.05 K/uL Sodium Level 137 mmol/L Potassium Level 3.9 mmol/L Chloride Level 102 mmol/L Carbon Dioxide Level 26 mmol/L Anion Gap 8.0 mmol/L Blood Urea Nitrogen 15 mg/dl Creatinine 1.02 mg/dl Est Creatinine Clear Calc Drug Dose 93.9 ml/min Estimated GFR () 93.5 Estimated GFR (Non- 80.6 BUN/Creatinine Ratio 15.1 Random Glucose 122 mg/dl Calcium Level 8.7 mg/dl Phosphorus Level 2.0 mg/dl Total Bilirubin 1.6 mg/dl Aspartate Amino Transf (AST/SGOT) 88 U/L Alanine Aminotransferase (ALT/SGPT) 273 U/L Alkaline Phosphatase 113 U/L Creatine Kinase MB < 0.5 ng/ml Creatine Kinase MB Ratio Troponin I 0.047 ng/ml Total Protein 6.8 gm/dl Albumin 3.2 gm/dl Globulin 3.6 gm/dl Albumin/Globulin Ratio 0.9 Lipase 404 U/L Problem Qualifiers (1) Volume overload: Hypervolemia type: unspecified Qualified Codes: E87.70 - Fluid overload, unspecified
--- NOTE | 2017-10-04 15:20 | NUR ---
just arrived, updated. orders in place to transfer to tele.
--- NOTE | 2017-10-04 15:55 | ECHOCARDIOGRAM REPORT ---
*NOTICE TO RECEIVING LIBERTARIAN AGENCY This information is strictly Confidential and protected under [place] law. [place] law prohibits you from making any further disclosure of this information unless further disclosure is expressly permitted by the written consent of the person to whom it pertains or is authorized by law. A general authorization for the release of medical or other information is not sufficient for this purpose. Hospital accepts no responsibility if the information is made available to any other person, INCLUDING THE PATIENT. Interpretation Summary * Conclusions -- * There is normal left ventricular wall thickness. * The left ventricular wall motion is normal. * The LV Ejection Fraction = 55-60%. * Grade I diastolic dysfunction, (abnormal relaxation pattern). * There is no significant valvular heart disease. Procedure Details * A complete two-dimensional transthoracic echocardiogram was performed (2D, M-mode, Doppler and color flow Doppler). Left Ventricle * The left ventricle is normal in size. * There is normal left ventricular wall thickness. * Ejection Fraction = 55-60%. * Left ventricular systolic function is normal. * The left ventricular wall motion is normal. Right Ventricle * The right ventricle is normal size. * The right ventricular systolic function is normal as assessed by tricuspid annular plane systolic excursion (TAPSE) (normal >1.5 cm). Atria * The left atrial size is normal. * Right atrial size is normal. * There is no evidence of atrial septal defect, but resolution does not allow assessment for a patent foramen ovale. Mitral Valve * The mitral valve is normal. * There is no mitral valve stenosis. * Significant mitral regurgitation is absent. Tricuspid Valve * The tricuspid valve is normal. * There is no tricuspid stenosis. * Significant tricuspid regurgitation is absent. * Doppler findings do not suggest pulmonary hypertension. Aortic Valve * The aortic valve is trileaflet. * Aortic stenosis is absent. * There is no significant aortic regurgitation. Pulmonic Valve * The pulmonary valve is not well seen, but the Doppler examination is normal without significant regurgitation or stenosis. Great Vessels * The aortic root and proximal ascending aorta are normal sized. Pericardium/Pleural * There is no pericardial effusion. Great Vessels * Normal inferior vena cava diameter and respiratory variation suggests normal central venous pressure. Left Ventricular Diastolic Function * Grade I diastolic dysfunction, (abnormal relaxation pattern). MMode 2D Measurements and Calculations IVSd 1.0 cm IVSs 1.3 cm LVIDd 4.6 cm LVIDs 3.1 cm LVPWd 0.99 cm LVPWs 1.3 cm IVS/LVPW 1.0 FS 32.3 % EDV(Teich) 97.5 ml ESV(Teich) 38.5 ml EF(Teich) 60.5 % EDV(cubed) 97.5 ml ESV(cubed) 30.3 ml EF(cubed) 68.9 % % IVS thick 26.8 % % LVPW thick 28.6 % LV mass(C)d 162.4 grams LV mass(C)dI 74.4 grams/m\S\2 LV mass(C)s 130.4 grams LV mass(C)sI 59.8 grams/m\S\2 SV(Teich) 59.0 ml SI(Teich) 27.0 ml/m\S\2 SV(cubed) 67.2 ml SI(cubed) 30.8 ml/m\S\2 Ao root diam 4.0 cm Ao root area 12.3 cm\S\2 ACS 2.1 cm LA dimension 3.7 cm asc Aorta Diam 3.0 cm LA/Ao 0.95 LVAd ap4 37.1 cm\S\2 LVLd ap4 8.9 cm EDV(MOD-sp4) 127.0 ml LVAs ap4 22.1 cm\S\2 LVLs ap4 7.3 cm ESV(MOD-sp4) 56.5 ml EF(MOD-sp4) 55.5 % LVAd ap2 33.0 cm\S\2 LVLd ap2 8.7 cm EDV(MOD-sp2) 104.0 ml LVAs ap2 19.3 cm\S\2 LVLs ap2 7.0 cm ESV(MOD-sp2) 45.8 ml EF(MOD-sp2) 56.0 % SV(MOD-sp4) 70.5 ml SI(MOD-sp4) 32.3 ml/m\S\2 SV(MOD-sp2) 58.2 ml SI(MOD-sp2) 26.7 ml/m\S\2 Doppler Measurements and Calculations MV E max karri 79.5 cm/sec MV A max karri 90.2 cm/sec MV E/A 0.88 MV P1/2t max karri 89.0 cm/sec MV P1/2t 61.9 msec MVA(P1/2t) 3.6 cm\S\2 MV dec slope 421.5 cm/sec\S\2 MV dec time 0.18 sec Ao V2 max 101.0 cm/sec Ao max PG 4.1 mmHg Ao max PG (full) -0.27 mmHg LV V1 max PG 4.4 mmHg LV V1 max 104.3 cm/sec PA V2 max 78.7 cm/sec PA max PG 2.5 mmHg
[2017-10-04] MEDS: NITROGLYCERIN 2% OINTMENT 30GM TUBE EXT SCH ×2 (16:08→22:39)
--- NOTE | 2017-10-04 16:25 | NUR ---
transferred to [facility] [id number] via bed with all belongings after report called to gabriela pollock rn. accompanied.
--- NOTE | 2017-10-04 16:41 | Progress Note ---
Medicine Progress Note Date & Time of Visit: Oct 04, 2017 at 15:19. Subjective 56 yo M with intermittent RUQ pain and episodes of vomiting admitted for acute cholecystitis. He underwent ERCP on HD2 with sphincterotomy that revealed sludge and pus. He then underwent cholecystectomy on HD3 under general anesthesia. While recovering in the PACU he was not able to be weaned of facemask for 1 hour likely related to the volume resuscitation he had received along with lying flat on an operating table for a couple of hours. He was recovered in the ICU overnight and received Lasix with 3L output, bronchodilators and BIPAP and is doing well on nasal canula this morning. He is no longer ill-appearing and is hemodynamically stable. He continues on the Zosyn and has been afebrile with some off and on chills per his report. He is tolerating some food as the surgeon has allowed. He still has some abdominal pain especially with taking deep breaths and was encouraged to use the IS at bedside frequently to improve his atelectasis. He is otherwise asymptomatic and will be transferred to telemetry for continued recovery. Objective Last 8 Hrs Date Time Temp Pulse Resp B/P (MAP) Pulse Ox O2 Delivery O2 Flow Rate FiO2 10/04/17 14:00 96 20 158/89 (112) 93 Nasal Cannula 2.0 10/04/17 12:00 95 Nasal Cannula 4.0 10/04/17 12:00 37.1 88 15 145/85 (105) 95 Nasal Cannula 2.0 10/04/17 10:07 105 20 135/100 (112) 94 Nasal Cannula 2.0 10/04/17 09:02 104 21 93 Nasal Cannula 4.0 10/04/17 09:00 98 24 157/89 (111) 93 Nasal Cannula 2.0 10/04/17 08:00 37.0 91 16 162/98 (119) 94 Nasal Cannula 4.0 10/04/17 08:00 93 Nasal Cannula 4.0 Physical Exam: GEN: WNWD, in no acute distress, alert and appropriate, able to move around the bed with ease. Ill-appearing, on 10L facemask HEENT: NC/AT, pupils are round and equal bilaterally, normal sclerae CARDIO: reg rate, S1/2 heard without m/g/r LUNGS: CTA bilaterally, no crackles, rales or wheezes, good diaphragmatic excursion ABD: soft, tenderness around incision sites. +BS EXTREMITY: RP and DP palpable 2+ bilat, no LE swelling or edema, extremities are warm and well-perfused NEURO: CN 2-12 grossly intact, no gross focal deficits. MUSC: 5/5 strength throughout, no gross focal deficits SKIN: warm and dry and wounds as above. Laboratory Results: 10/04/17 05:46 Red Blood Count 4.29, Mean Corpuscular Volume 90.2, Mean Corpuscular Hemoglobin 31.0, Mean Corpuscular Hemoglobin Concent 34.4, Mean Platelet Volume 11.3, Neutrophils (%) (Auto) 88.1, Lymphocytes (%) (Auto) 4.3, Monocytes (%) (Auto) 7.3, Eosinophils (%) (Auto) 0.0, Basophils (%) (Auto) 0.0, Neutrophils # (Auto) 13.42, Lymphocytes # (Auto) 0.65, Monocytes # (Auto) 1.11, Eosinophils # (Auto) 0.00, Basophils # (Auto) 0.00 10/04/17 13:58 Test 10/01/17 19:35 10/01/17 21:26 10/01/17 23:31 10/03/17 05:35 Chemistry Specimen Hemolysis Gamma Glutamyl Transpeptidase 715 U/L (3-85) C-Reactive Protein < 0.29 mg/dl (0-0.29) Prothrombin Time 10.7 SECONDS (9.0-12.0) Prothromb Time International Ratio 1.0 (0.9-1.1) Activated Partial Thromboplast Time 24.3 SECONDS (21.0-31.0) Partial Thromboplastin Ratio 0.9 Lactic Acid Level 1.7 mmol/L (0.4-2.0) Direct Bilirubin 3.0 mg/dl (0-0.2) Test 10/04/17 05:43 10/04/17 05:46 10/04/17 13:58 Bedside Glucose 121 mg/dl (70-99) White Blood Count 15.23 K/uL (4.8-10.8) Red Blood Count 4.29 M/uL (4.7-6.1) Hemoglobin 13.3 g/dL (14.0-18.0) Hematocrit 38.7 % (42-52) Mean Corpuscular Volume 90.2 fL (80-100) Mean Corpuscular Hemoglobin 31.0 pg (25-34) Mean Corpuscular Hemoglobin Concent 34.4 g/dl (32-36) Platelet Count 136 K/uL (130-400) Mean Platelet Volume 11.3 fL (7.4-10.4) Neutrophils (%) (Auto) 88.1 % Lymphocytes (%) (Auto) 4.3 % Monocytes (%) (Auto) 7.3 % Eosinophils (%) (Auto) 0.0 % Basophils (%) (Auto) 0.0 % Neutrophils # (Auto) 13.42 K/uL (1.4-6.5) Lymphocytes # (Auto) 0.65 K/uL (1.2-3.4) Monocytes # (Auto) 1.11 K/uL (0.11-0.59) Eosinophils # (Auto) 0.00 K/uL (0-0.5) Basophils # (Auto) 0.00 K/uL (0-0.2) RDW Standard Deviation 42.9 fL (36.4-46.3) RDW Coefficient of Variation 13.1 % (11.5-14.5) Immature Granulocyte % (Auto) 0.3 % Immature Granulocyte # (Auto) 0.05 K/uL (0.00-0.02) Phosphorus Level 2.0 mg/dl (2.5-4.9) Total Bilirubin 1.6 mg/dl (0.2-1) Aspartate Amino Transf (AST/SGOT) 88 U/L (15-37) Alanine Aminotransferase (ALT/SGPT) 273 U/L (12-78) Alkaline Phosphatase 113 U/L (45-117) Total Protein 6.8 gm/dl (6.4-8.2) Albumin 3.2 gm/dl (3.4-5.0) Globulin 3.6 gm/dl (2.5-4.0) Albumin/Globulin Ratio 0.9 (0.9-2) Lipase 404 U/L (73-393) Anion Gap 7.0 mmol/L (3-11) Est Creatinine Clear Calc Drug Dose 91.6 ml/min Estimated GFR () 91.3 Estimated GFR (Non- 78.8 BUN/Creatinine Ratio 16.6 (10-20) Calcium Level 8.9 mg/dl (8.5-10.1) Magnesium Level 2.6 mg/dl (1.8-2.4) Creatine Kinase MB < 0.5 ng/ml (0.5-3.6) Creatine Kinase MB Ratio (0-3.0) Troponin I 0.021 ng/ml (0-0.045) Date/Time Source Procedure Growth Status 10/04/17 16:27 Blood Blood Culture Pending Ordered 10/03/17 19:00 Nasal MRSA DNA Surveillance Screen - Final Specimen Negative for MRSA by DNA Probe Complete Last 24 Hours Test 10/03/17 21:58 10/03/17 22:24 10/03/17 22:40 10/04/17 05:43 Creatine Kinase MB Ratio Bedside Glucose 155 mg/dl 121 mg/dl Phosphorus Level 1.8 mg/dl Magnesium Level 2.1 mg/dl Creatine Kinase MB 0.6 ng/ml Troponin I 0.071 ng/ml Test 10/04/17 05:46 10/04/17 13:58 White Blood Count 15.23 K/uL Red Blood Count 4.29 M/uL Hemoglobin 13.3 g/dL Hematocrit 38.7 % Mean Corpuscular Volume 90.2 fL Mean Corpuscular Hemoglobin 31.0 pg Mean Corpuscular Hemoglobin Concent 34.4 g/dl Platelet Count 136 K/uL Mean Platelet Volume 11.3 fL Neutrophils (%) (Auto) 88.1 % Lymphocytes (%) (Auto) 4.3 % Monocytes (%) (Auto) 7.3 % Eosinophils (%) (Auto) 0.0 % Basophils (%) (Auto) 0.0 % Neutrophils # (Auto) 13.42 K/uL Lymphocytes # (Auto) 0.65 K/uL Monocytes # (Auto) 1.11 K/uL Eosinophils # (Auto) 0.00 K/uL Basophils # (Auto) 0.00 K/uL RDW Standard Deviation 42.9 fL RDW Coefficient of Variation 13.1 % Immature Granulocyte % (Auto) 0.3 % Immature Granulocyte # (Auto) 0.05 K/uL Sodium Level 137 mmol/L 135 mmol/L Potassium Level 3.9 mmol/L 3.8 mmol/L Chloride Level 102 mmol/L 102 mmol/L Carbon Dioxide Level 26 mmol/L 26 mmol/L Anion Gap 8.0 mmol/L 7.0 mmol/L Blood Urea Nitrogen 15 mg/dl 17 mg/dl Creatinine 1.02 mg/dl 1.04 mg/dl Est Creatinine Clear Calc Drug Dose 93.9 ml/min 91.6 ml/min Estimated GFR () 93.5 91.3 Estimated GFR (Non- 80.6 78.8 BUN/Creatinine Ratio 15.1 16.6 Random Glucose 122 mg/dl 111 mg/dl Calcium Level 8.7 mg/dl 8.9 mg/dl Phosphorus Level 2.0 mg/dl Total Bilirubin 1.6 mg/dl Aspartate Amino Transf (AST/SGOT) 88 U/L Alanine Aminotransferase (ALT/SGPT) 273 U/L Alkaline Phosphatase 113 U/L Creatine Kinase MB < 0.5 ng/ml < 0.5 ng/ml Creatine Kinase MB Ratio Troponin I 0.047 ng/ml 0.021 ng/ml Total Protein 6.8 gm/dl Albumin 3.2 gm/dl Globulin 3.6 gm/dl Albumin/Globulin Ratio 0.9 Lipase 404 U/L Magnesium Level 2.6 mg/dl Date/Time Source Procedure Growth Status 10/03/17 19:00 Nasal MRSA DNA Surveillance Screen - Final Specimen Negative for MRSA by DNA Probe Complete Assessment & Plan 56 yo M with intermittent RUQ pain and episodes of vomiting admitted for acute cholecystitis. He underwent ERCP on HD2 with sphincterotomy that revealed sludge and pus. He then underwent cholecystectomy on HD3 under general anesthesia. While recovering in the PACU he was not able to be weaned of facemask for 1 hour likely related to the volume resuscitation he had received along with lying flat on an operating table for a couple of hours. He was recovered in the ICU overnight and received Lasix with 3L output, bronchodilators and BIPAP and is doing well on nasal canula this morning. He is no longer ill-appearing and is hemodynamically stable. He continues on the Zosyn and has been afebrile with some off and on chills per his report. He is tolerating some food as the surgeon has allowed. He still has some abdominal pain especially with taking deep breaths and was encouraged to use the IS at bedside frequently to improve his atelectasis. He is otherwise asymptomatic and will be transferred to telemetry for continued recovery. 1. Sepsis 2/2 acute cholecystitis-s/p lap leeanna. Improvement clinically. Continues on Zosyn and afebrile. Will repeat blood cultures to ensure infection has cleared. Cont post-op recs per surgical team. MCKENNA drain in place. 2. Hypoxia related to volume overload 2/2 aggressive volume resuscitation ( Acute postoperative pulmonary insufficiency). Improved. Diuresed with Lasix overnight with 3L output with improvement on Bipap and nebulizers. Mucomyst for one more day per ICU doc to help with thick secretions. 3. Leukocytosis 2/2 infection and post op state. 4. Hyperlipidemia-cont Lipitor 5. Chronic L shoulder rotator cuff tendonitis-pt has chronic insomnia from chronic pain in his shoulder and takes Benadryl and Naprosyn 220mg PO x 1 tab every night for pain control and to help him sleep. Hold these now. 6. GERD-cont PPI DVT PROPHYLAXIS: SCDs-defer to Surgery Full Code Dispo: [facility] Consultants: General Surgery-[facility] ICU-[facility] Current Inpatient Medications: Current Inpatient Medications Medications (Trade) Dose Ordered Sig/[place] Route Start Time Stop Time Status Last Admin Dose Admin Ondansetron HCl (Zofran Inj) 4 mg Q6H PRN IV 10/01/17 23:00 10/31/17 22:59 10/02/17 06:00 4 MG Acetaminophen (Tylenol Tab) 500 mg Q6H PRN PO 10/01/17 23:00 10/31/17 22:59 10/04/17 11:55 500 MG Piperacillin Sod/ Tazobactam Sod (Consult) 1 ea DAILY PRN N/A 10/01/17 23:47 10/31/17 23:46 Morphine Sulfate (MoRPHine SULFATE INJ) 2 mg Q4 PRN IV 10/01/17 23:15 10/15/17 23:14 10/03/17 23:43 2 MG Metoclopramide HCl (Reglan Inj) 10 mg Q6H PRN IV 10/01/17 23:15 10/31/17 23:14 10/03/17 05:07 10 MG Atorvastatin Calcium (Lipitor Tab) 40 mg DAILY PO 10/03/17 09:00 11/02/17 08:59 10/04/17 09:12 40 MG Diphenhydramine HCl (Benadryl Cap) 25 mg HS PRN PO 10/02/17 10:30 11/01/17 10:29 Pantoprazole Sodium 40 mg/ Syringe 10 ml @ 5 mls/min BID IV 10/02/17 21:00 11/01/17 20:59 10/04/17 09:12 5 MLS/MIN Guaifenesin (Organidin Nr Tab) 200 mg Q4H PRN PO 10/02/17 23:45 11/01/17 23:44 10/03/17 00:06 200 MG Hydromorphone HCl (Dilaudid Inj) 0.5 mg Q1H PRN IV 10/03/17 17:15 10/17/17 17:14 10/04/17 12:14 0.5 MG Piperacillin Sod/ Tazobactam Sod 3.375 gm/Dextrose 115 ml @ 28.75 mls/ hr Q8H IV 10/03/17 20:00 10/12/17 11:59 10/04/17 12:11 28.75 MLS/HR Miscellaneous Information (Icu Protocol For Hyperglycemia) 1 ea PRN PRN N/A 10/03/17 22:00 10/05/17 21:59 Lorazepam (Ativan Inj) 1 mg ONE PRN IV 10/03/17 22:00 Ioversol (Optiray 320) 125 ml UD PRN IV 10/04/17 00:15 10/08/17 00:14 Ipratropium [place] (Atrovent 0.02% 0.5MG/2.5ML Neb) 0.5 mg Q6R INH 10/04/17 09:00 11/03/17 08:59 10/04/17 08:54 0.5 MG Levalbuterol (Xopenex 1.25MG/ 0.5ML Neb) 1.25 mg Q6R INH 10/04/17 09:00 11/03/17 08:59 10/04/17 08:54 1.25 MG Levalbuterol (Xopenex 1.25MG/ 0.5ML Neb) 1.25 mg Q3H PRN INH 10/04/17 08:45 11/03/17 08:44 Ipratropium [place] (Atrovent 0.02% 0.5MG/2.5ML Neb) 0.5 mg Q3H PRN INH 10/04/17 08:45 11/03/17 08:44 Acetylcysteine (Mucomyst 20% Inh Soln) 3 ml Q8R INH 10/04/17 09:00 11/03/17 08:59 10/04/17 08:54 3 ML Nitroglycerin (Nitroglycerin 2% Oint) 1 inch Q6H EXT 10/04/17 16:00 11/03/17 03:59
--- NOTE | 2017-10-04 20:06 | NUR ---
A: Full assessment complete; see EMR. A&OX4. BP elevated; patient just ambulated to bathroom & medicated for pain, will recheck. Other VSS. SR on tele monitor. Denies CP, SOB, numbness/tingling, nausea. C/o abdominal pain rated 7/10; see EMAR. Lungs clear on 1L NC. Pulses WNL. Trace edema noted to BLE. Abdomen distended, soft, tender w/hypoactive BSx4. Dermabond to mid abdomen & 4x4s w/medipore tape to right abdomen; shadowing noted. MCKENNA drain intact w/serosanguineous drainage. Voiding clear, fran urine in urinal; OOB w/minimal assistance. IV HL x3 w/intermittent medications. Denies needs at this time. Call velasquez within reach. RN will continue to monitor.
[2017-10-04] MEDS: MoRPHine SULFATE 2 MG/ML CARP IV PRN (23:46)
--- NOTE | 2017-10-05 00:08 | NUR ---
A: Patient c/o abdominal pain & headache; medicated per MD order. Pulse ox low on RA; 4L NC on. Refusing BiPAP at this time. Lungs clear/diminished. SR on tele monitor. IV HL. Hypoactive BSx4. Dressing to abdomen intact; MCKENNA draining. Denies needs at this time. Call velasquez within reach. RN will continue to monitor.
[2017-10-05] MEDS: ONDANSETRON INJ 2 MG/ML 2 ML VIAL IV PRN (00:53)
--- NOTE | 2017-10-05 01:00 | NUR ---
A: Patient continues to complain of headache & now nausea associated w/headache. Zofran given. Dr. Weber notified.
[2017-10-05] MEDS ORDERED: CLONIDINE HCL 0.1 MG TAB PO PRN (01:15)
[2017-10-05 01:45] VITALS: PULSE 114; O2SAT 95
[2017-10-05] MEDS: LEVALBUTEROL 1.25MG/0.5ML NEB INH SCH ×2 (01:45→08:02)
[2017-10-05] MEDS: IPRATROPIUM BROMIDE NEB SOLN 0.02% 2.5 ML VIAL INH SCH ×2 (01:45→08:02)
[2017-10-05] MEDS: HYDROmorphone INJ 0.5 MG/0.5 ML SYR IV PRN ×2 (02:12→06:35)
[2017-10-05] MEDS: PIPERACILL/TAZOBAC IV 3.375 GM in DEXTROSE 5% 100ML IV SCH ×2 (03:26→11:26)
[2017-10-05 03:36] VITALS: BP 138/87; PULSE 115; TEMP 37; O2SAT 97
--- NOTE | 2017-10-05 04:19 | NUR ---
A: Patient resting in bed; reports that pain is tolerable at this time. VSS. BP much improved. ST on tele monitor. Lungs diminished on 3L. Voiding adequately in urinal. Abdominal dressings unchanged; MCKENNA patent. IV infusing intermittent abx. Denies needs at this time. Call velasquez within reach. RN will continue to monitor.
[2017-10-05 06:46] LABS: HEMATOCRIT 38.4 % (42-52); MEAN CELL VOLUME 89.9 fL (80-100); MEAN CORPUSCULAR HEMOGLOBIN 30.4 pg (25-34); MEAN CORPUSCULAR HGB CONC 33.9 g/dl (32-36); MEAN PLATELET VOLUME 10.8 fL (7.4-10.4); PLATELET COUNT 156 K/uL (130-400); RED CELL DISTRIBUTION WIDTH CV 12.9 % (11.5-14.5); RED CELL DISTRIBUTION WIDTH SD 42.3 fL (36.4-46.3); WHITE BLOOD COUNT 9.43 K/uL (4.8-10.8)
--- NOTE | 2017-10-05 07:10 | DIAGNOSTIC IMAGING REPORT ---
CHEST ONE VIEW PORTABLE CLINICAL HISTORY: 56 years-old Male presenting with CHF. TECHNIQUE: Portable upright AP view of the chest was obtained. COMPARISON: 10/04/2017. FINDINGS: Cardiac silhouette mildly enlarged, unchanged. Mildly low lung volumes. Persistent bandlike opacities at the lung bases. Trace bilateral pleural effusions may be present. No pneumothorax. Osseous structures normal. Cholecystectomy clips noted. IMPRESSION: 1. Mildly low lung volumes with bibasilar atelectasis. 2. Mild cardiomegaly with trace bilateral pleural effusions. No meghan pulmonary edema. Electronically signed by: Forest Saenz M.D. 10/05/2017 7:08 AM Dictated Date/Time: 10/05/2017 7:07 AM
[2017-10-05 07:17] LABS: ALBUMIN 2.7 gm/dl (3.4-5.0); CALCIUM 8.4 mg/dl (8.5-10.1); CREATININE 1.02 mg/dl (0.60-1.40); POTASSIUM 3.5 mmol/L (3.5-5.1)
[2017-10-05 07:22] LABS: TOTAL PROTEIN 6.3 gm/dl (6.4-8.2)
[2017-10-05 07:49] VITALS: BP 175/95; PULSE 120; TEMP 36.6; O2SAT 96
[2017-10-05 08:02] VITALS: PULSE 106; O2SAT 96
[2017-10-05] MEDS: PANTOprazole INJ 40 MG in SYRINGE 0 ML IV SCH (08:26)
[2017-10-05] MEDS ORDERED: PANTOprazole SOD 40 MG TAB PO SCH (09:00)
[2017-10-05] MEDS ORDERED: AMLODIPINE BESYLATE 5 MG TAB PO SCH (09:00)
--- NOTE | 2017-10-05 09:22 | NUR ---
pt alert and orientedx4 walking around in room, pt sitting up in chair eating breakfast, no n/v noted, pt has +[id number], will changed dressings, magnolia drain intact, pt lungs clear dim slightly in bases, pt placed on ra this am, 96% on 1l nc o2 intact, pt able to move all ext, c/o some pain, dr. flores called about pain meds pt c/o some belly pain but only has iv meds, awaiting some new orders, will continue to monitor call velasquez and monitor intact.
[2017-10-05] MEDS ORDERED: OXYCODONE/ACETAMINOPHEN 7.5-325 TAB PO PRN (09:30)
[2017-10-05] MEDS: ATORVASTATIN 40 MG TAB PO SCH (10:37)
--- NOTE | 2017-10-05 10:58 | NUR ---
pt given prn percocet for c/o abd pain, dressing all changed, no drainage noted all incisions look clean and dry, all drainage old, new dressing over magnolia applied, clean and dry, oob in chair will continue to monitor call velasquez and monitor intact.
[2017-10-05 11:27] VITALS: BP 139/88; PULSE 92; TEMP 37; O2SAT 95
--- NOTE | 2017-10-05 11:51 | Surgery Progress Note ---
Surgery Progress Note Date of Service Oct 05, 2017. Subjective Feels he turned a corner last night. Sitting in a chair. Tolerating low fat diet. No nausea or vomiting. No bowel movement for a few days now. Pain control adequate. Objective Vital Signs: Date Time Temp Pulse Resp B/P (MAP) Pulse Ox O2 Delivery O2 Flow Rate FiO2 10/05/17 11:27 37.0 92 16 139/88 (105) 95 10/05/17 08:05 Room Air 10/05/17 08:02 106 18 96 Nasal Cannula 3.0 10/05/17 07:49 36.6 120 16 175/95 (121) 96 10/05/17 04:02 Nasal Cannula 3.0 10/05/17 03:36 37.0 115 20 138/87 (104) 97 Nasal Cannula 3.0 10/05/17 01:45 114 22 95 Nasal Cannula 4.0 10/05/17 00:02 Nasal Cannula 4.0 10/04/17 23:50 36.8 107 22 169/86 (113) 93 Nasal Cannula 4.0 10/04/17 23:03 102 20 96 BiPAP/CPAP 30 10/04/17 21:36 96 98 30 10/04/17 20:27 37.0 104 20 160/84 (109) 93 Room Air 165/78 (107) 10/04/17 20:00 Nasal Cannula 1.0 10/04/17 19:55 87 20 93 Room Air 10/04/17 19:33 37.3 94 20 176/86 (116) 93 Nasal Cannula 1.0 10/04/17 16:30 89 18 159/89 (112) 92 Nasal Cannula 3.0 10/04/17 16:00 37.0 90 16 98 2.0 10/04/17 16:00 94 Nasal Cannula 2.0 10/04/17 15:46 92 20 94 Nasal Cannula 4.0 10/04/17 14:00 96 20 158/89 (112) 93 Nasal Cannula 2.0 10/04/17 12:00 95 Nasal Cannula 4.0 10/04/17 12:00 37.1 88 15 145/85 (105) 95 Nasal Cannula 2.0 Physical Exam: MCKENNA drainage (45 cc serosanguinous) General Appearance: WD/WN, no apparent distress Head: normocephalic, atraumatic Respiratory/Chest: normal breath sounds, no respiratory distress Cardiovascular: + tachycardia Abdomen: normal bowel sounds, non tender, soft, + distended (mild) Incision(s): clean, dry, intact Laboratory Results: Results Past 24 Hours Test 10/04/17 13:58 10/05/17 06:00 Range/Units Sodium Level 135 135 136-145 mmol/L Potassium Level 3.8 3.5 3.5-5.1 mmol/L Chloride Level 102 102 98-107 mmol/L Carbon Dioxide Level 26 28 21-32 mmol/L Anion Gap 7.0 5.0 3-11 mmol/L Blood Urea Nitrogen 17 16 7-18 mg/dl Creatinine 1.04 1.02 0.60-1.40 mg/dl Est Creatinine Clear Calc Drug Dose 91.6 92.3 ml/min Estimated GFR () 91.3 93.5 Estimated GFR (Non- 78.8 80.6 BUN/Creatinine Ratio 16.6 15.4 10-20 Random Glucose 111 108 70-99 mg/dl Calcium Level 8.9 8.4 8.5-10.1 mg/dl Magnesium Level 2.6 1.8-2.4 mg/dl Creatine Kinase MB < 0.5 0.5-3.6 ng/ml Creatine Kinase MB Ratio 0-3.0 Troponin I 0.021 0-0.045 ng/ml White Blood Count 9.43 4.8-10.8 K/uL Red Blood Count 4.27 4.7-6.1 M/uL Hemoglobin 13.0 14.0-18.0 g/dL Hematocrit 38.4 42-52 % Mean Corpuscular Volume 89.9 80-100 fL Mean Corpuscular Hemoglobin 30.4 25-34 pg Mean Corpuscular Hemoglobin Concent 33.9 32-36 g/dl RDW Standard Deviation 42.3 36.4-46.3 fL RDW Coefficient of Variation 12.9 11.5-14.5 % Platelet Count 156 130-400 K/uL Mean Platelet Volume 10.8 7.4-10.4 fL Total Bilirubin 1.1 0.2-1 mg/dl Aspartate Amino Transf (AST/SGOT) 35 15-37 U/L Alanine Aminotransferase (ALT/SGPT) 175 12-78 U/L Alkaline Phosphatase 94 45-117 U/L Total Protein 6.3 6.4-8.2 gm/dl Albumin 2.7 3.4-5.0 gm/dl Globulin 3.6 2.5-4.0 gm/dl Albumin/Globulin Ratio 0.8 0.9-2 Microbiology Results 10/04/17 Blood Culture, Received Pending 10/04/17 Blood Culture, Received Pending Assessment & Plan s/p ercp followed by lap leeanna for acute cholecystitis. Postop course complicated by hypoxia/ hypertension which now is improved. Tolerating diet. From surgical standpoint, stable for discharge. Would need MCKENNA teaching and f/u with Dr. Vinson in 1 wk for MCKENNA removal.
[2017-10-05] MEDS ORDERED: METR-162 PO (12:00)
[2017-10-05] MEDS ORDERED: CIPR-255 PO (12:00)
--- NOTE | 2017-10-05 12:13 | Discharge Instructions ---
Discharge Instructions Date of Service Oct 05, 2017. Admission Reason for Admission: Cholecystitis Discharge Discharge Diagnosis / Problem: acute cholecystitis Discharge Goals Goal(s): Prevent Disease Progression Activity Recommendations Activity Limitations: per Instructions/Follow-up section Lifting Limitations: no more than 10 pounds Exercise/Sports Limitations: none May Resume Sexual Activity: when tolerated Shower/Bathe: no limitations (cover MCKENNA site with a waterproof bandage, when get out of shower dry site and replace bandage) Driving or Machine Use: no limitations . Instructions / Follow-Up Instructions / Follow-Up Please take all medications as instructed. Please use Naproxen as needed for post-operative pain and reserve Percocet for severe pain. Please follow-up with Dr. Vinson in the [facility] office within 1 week for removal of the MCKENNA drain. The phone number is [phone]. Cont to dump the drain daily as instructed by nurses prior to leaving the hospital. Keep the drain site clean and dry. You may shower but please cover this site with a waterproof bandage and when finished, please dry site and replace bandage. Please notify Surgeon if your MCKENNA liquid changes colors. Minimal activity for 2 weeks. Low fat diet for two weeks. You have a hospital follow-up appointment with Dr. Vinh Ronquillo on 10/15 @ 11:25 for follow-up from this hospitalization. It was a pleasure taking care of you! Call if you have any questions or problems. You can reach a [facility] hospitalist on duty at [facility] 24 hours a day by calling [phone]. Take care of yourself. Lisbet Padgett DO [facility] Diet Patient's current hospital diet: Low Fat Diet Discharge Diet Recommended Diet: Low Fat Diet Procedures Procedures Performed: Laparoscopic Cholecystectomy Pending Studies Studies pending at discharge: yes List of pending studies: Repeat Blood cultures are pending at discharge. Medical Emergencies . Who to Call and When: Medical Emergencies: If at any time you feel your situation is an emergency, please call 911 immediately. . Non-Emergent Contact Non-Emergency issues call your: Primary Care Provider . . "Provider Documentation" section prepared by Lisbet Padgett. . VTE Core Measure Inpt VTE Proph given/why not?: SCD's [place] Drug Monitoring Program Search Results: patient reviewed within database, no issues identified
[2017-10-05] MEDS ORDERED: NAPR-1231 PO (12:15)
[2017-10-05] MEDS ORDERED: OXYC7.5T65 PO (12:15)
--- NOTE | 2017-10-05 12:18 | Discharge Summary ---
Discharge Summary Date of Service Oct 05, 2017. Discharge Summary Admission Date: Oct 01, 2017 at 22:57 Discharge Date: Oct 05, 2017 Discharge Disposition: Home Principal Diagnosis: Sepsis 2/2 acute cholecystitis-s/p lap leeanna and ERCP with sphincterotomy Hypoxia related to volume overload 2/2 aggressive volume resuscitation (Acute postoperative pulmonary insufficiency) Leukocytosis 2/2 infection and post op state. Hyperlipidemia Chronic L shoulder rotator cuff tendonitis GERD Procedures: Lap leeanna ERCP with sphincterotomy Vaccinations: None. Consultations: General Surgery-[facility] Pending Studies/Follow-Up: see instructions below. Medication Reconciliation New Medications: Ciprofloxacin Hcl (Cipro) 500 Mg Tab 500 MG PO BID for 5 Days, #10 TAB Metronidazole (Flagyl) 500 Mg Tab 500 MG PO TID for 5 Days, #15 TAB Naproxen (Naproxen) 500 Mg Tab 1 TAB PO BID PRN for Pain for 7 Days, #14 TAB 1 Refill Oxycodone/Acetaminophen 7.5MG/325MG (Percocet 7.5MG/325MG) Tab 1 TAB PO Q6H PRN for severe pain for 7 Days, #10 TAB Continued Medications: Atorvastatin (Lipitor) 40 Mg Tab 40 MG PO DAILY, TAB Diphenhydramine Hcl (Benadryl Allergy) 25 Mg Cap 1 CAP PO HS for 30 Days, #30 CAP 1 Refill Naproxen (Aleve) 220 Mg Tab 220 MG PO HS, TAB Omeprazole (Prilosec) 20 Mg Cap 1 CAP PO DAILY for 30 Days, #30 CAP 5 Refills Admission Information HPI (per Admitting provider): Pt is 56 y/o M with PMH dyslipidemia presented to ER with c/o abdominal pain. Pt states 2 days ago started with upper abdominal pain after eating lobster bisque. States pain lasted several hours then resolved. Ate yesterday and no abdominal pain. States today ate chex mix later developed some upper abdominal pain and RUQ pain described as "squeezing" with associated nausea and several episodes of vomiting. Reports this occurred while at work today and he was taken to [facility], once there his pain resolved and he denied evaluation. Pt states returned home and developed upper abdominal pain again with nausea and vomiting. Pt reports loose BM today. Takes omeprazole daily as reports hx RUQ "spasms" several years ago that were evaluated and pt reports no significant findings. Denies hx abdominal surgery. Denies known fever, hematemesis, melena, hematochezia, CORCORAN, syncope, vision changes, neck pain, CP, SOB, orthopnea, palpitations, cough, sore throat, choking, rhinorrhea, extremity weakness, extremity edema, rashes, urinary symptoms. Seen in ER. Initially afebrile, and Pulse 82. Pt then becomes febrile and tachy. WBC: 14, AST: 279, ALT: 233, Alk Phos: 131, Total bili: 1.8, Lipase: 899. Pt given zosyn, zofran, and morphine. Physical Exam (per Admitting): General Appearance: WD/WN, + mild distress (pt lying supine in bed in position of comfort) Head: normocephalic, atraumatic Eyes: normal inspection, PERRL, sclerae normal ENT: hearing grossly normal, pharynx normal, + pertinent finding (dry mucous membranes) Neck: supple, no JVD, trachea midline Respiratory/Chest: chest non-tender, lungs clear, no respiratory distress, no accessory muscle use Cardiovascular: regular rate, rhythm, no murmur Abdomen/GI: normal bowel sounds, soft, + pertinent finding (+tenderness to palpation RUQ, epigastric, LUQ without guarding or rebound) Back: no CVA tenderness Extremities/Musculoskelatal: normal inspection, normal capillary refill, no pedal edema, normal range of motion Neurologic/Psych: alert, oriented x 3 Skin: normal color, warm/dry Hospital Course 48 yo M presented to the ER with RUQ abdominal discomfort and nausea and vomiting. He reported the symptoms beginning a couple of days prior after eating some lobster bisque. Physical exam was significant for chills and rigors as well as significant RUQ and epigastric tenderness. A CT scan of his abdomen and pelvis revealed acute cholecystitis and pneumobilia. A chest xray did not show any acute process. An ultrasound revealed some mild thickening of the gallbladder wall. His WBC count was 14K with AST and ALT elevated in the 200s. Lipase was 899 and TB was 1.8. He was started on IV fluids, IV morphine , IV Zofran and IV Zosyn. He was admitted to telemetry and General Surgery was consulted who felt that the elevation in LFTs suggested a possible stone and requested GI consultation for ERCP. An ERCP with sphincterotomy was performed on 10/[address] Interiano from GI. Biliary sludge and pus was noted. Afterwards, his total bilirubin was noted to be slightly increased but his LFTs and lipase were trending down as well as his white blood cell count. The following day he went to the OR for a lap leeanna. Of note, he had received several liters of IV fluids in the setting of sepsis and elevated lipase up until the time he went to surgery. In the PACU he was unable to be weaned from supplemental oxygen for over an hour and was sent to the ICU for recovery. He was notable volume overloaded and was given Lasix and placed on BIPAP for several hours, ultimately weaned off oxygen altogether. He was sent home in stable condition with his MCKENNA drain still in place with post-operative instructions given. On day of discharge he was reliably tolerating solid foods , afebrile, not requiring supplemental oxygen and was mentating and ambulating at baseline. Physical exam revealed a soft nontender abdomen except around incision sites which were closed non-draining and not erythematous, bowel sounds were present and MCKENNA drain was intact and draining a pink-tinged serosanguinous fluid. Physical exam was otherwise unremarkable and he was sent home in stable condition. Total time spent on discharge = 60 minutes This includes examination of the patient, discharge planning, medication reconciliation, and communication with other providers. Discharge Instructions [facility] [address] [place] [address] Discharge Medical Patient Name: Carlos Desir Unit Number: [id number] Date of : 1960 Patient Status: Admitted Inpatient Attending Doctor: Lisbet Padgett DO DI: Medical v4 Discharge Instructions Date of Service Oct 05, 2017. Admission Reason for Admission: Cholecystitis Discharge Discharge Diagnosis / Problem: acute cholecystitis Discharge Goals Goal(s): Prevent Disease Progression Activity Recommendations Activity Limitations: per Instructions/Follow-up section Lifting Limitations: no more than 10 pounds Exercise/Sports Limitations: none May Resume Sexual Activity: when tolerated Shower/Bathe: no limitations (cover MCKENNA site with a waterproof bandage, when get out of shower dry site and replace bandage) Driving or Machine Use: no limitations . Instructions / Follow-Up Instructions / Follow-Up Please take all medications as instructed. Please use Naproxen as needed for post-operative pain and reserve Percocet for severe pain. Please follow-up with Dr. Vinson in the [facility] Surgery office within 1 week for removal of the MCKENNA drain. The phone number is [phone]. Cont to dump the drain daily as instructed by nurses prior to leaving the hospital. Keep the drain site clean and dry. You may shower but please cover this site with a waterproof bandage and when finished, please dry site and replace bandage. Please notify Surgeon if your MCKENNA liquid changes colors. Minimal activity for 2 weeks. Low fat diet for two weeks. You have a hospital follow-up appointment with Dr. Vinh Ronquillo on 10/15 @ 11:25 for follow-up from this hospitalization. It was a pleasure taking care of you! Call if you have any questions or problems. You can reach a [facility] hospitalist on duty at [facility] 24 hours a day by calling [phone]. Take care of yourself. Lisbet Padgett DO [facility] Hospitalist Current Hospital Diet Patient's current hospital diet: Low Fat Diet Discharge Diet Recommended Diet: Low Fat Diet Procedures Procedures Performed: Laparoscopic Cholecystectomy Pending Studies Studies pending at discharge: yes List of pending studies: Repeat Blood cultures are pending at discharge. Medical Emergencies . Who to Call and When: Medical Emergencies: If at any time you feel your situation is an emergency, please call 911 immediately. . Non-Emergent Contact Non-Emergency issues call your: Primary Care Provider . . "Provider Documentation" section prepared by Lisbet Padgett. . VTE Core Measure Inpt VTE Proph given/why not?: SCD's [place] Drug Monitoring Program Search Results: patient reviewed within database, no issues identified Additional Copies To Alexx Ronquillo M.D. ([facility])
[2017-10-05 13:15] VITALS: BP 139/88; PULSE 92; TEMP 37; O2SAT 95
--- NOTE | 2017-10-05 13:55 | NUR ---
pt verbalized understanding of incisional care and dressing care, pt given education on dressing changes, pt and verbalized understanding of all discharge instructions.
== END 2017-10-05 14:10 | disposition home or self-care (01) | DRG 853 ==
LOC: C.EDB 19:04 → C.2T 22:57 → CANRESERV 23:24 → ENRESERV 23:24 → EDBEDREQSVC 23:40 → ENRESERV 23:48 → C.MSICU 10-03 18:57 → CANRESERV 10-04 15:49 → ENRESERV 10-04 15:49 → C.2T 10-04 16:33
PROVIDERS: ADMIT Internal Medicine; ATTEND Hospitalist
PROC: 0F998ZZ Drainage of Common Bile Duct, Via Natural or Artificial Opening Endoscopic (ICD-10-PCS; 2017-10-02)
PROC: 0FT44ZZ Resection of Gallbladder, Percutaneous Endoscopic Approach (ICD-10-PCS; principal; 2017-10-03 07:00)
DX: A41.89 Other specified sepsis (principal); K85.10 Biliary acute pancreatitis without necrosis or infection; J95.2 Acute pulmonary insufficiency following nonthoracic surgery; K80.00 Calculus of gallbladder with acute cholecystitis without obstruction; K83.0 Cholangitis; N17.9 Acute kidney failure, unspecified; B96.1 Klebsiella pneumoniae [K. pneumoniae] as the cause of diseases classified elsewhere; E87.70 Fluid overload, unspecified; I10 Essential (primary) hypertension; R07.89 Other chest pain; R74.0 Nonspecific elevation of levels of transaminase and lactic acid dehydrogenase [LDH]; E87.6 Hypokalemia; E78.5 Hyperlipidemia, unspecified; M75.82 Other shoulder lesions, left shoulder; G47.00 Insomnia, unspecified; K21.9 Gastro-esophageal reflux disease without esophagitis; Z72.89 Other problems related to lifestyle; Z87.891 Personal history of nicotine dependence; Z79.1 Long term (current) use of non-steroidal anti-inflammatories (NSAID); Z79.899 Other long term (current) drug therapy; Z82.49 Family history of ischemic heart disease and other diseases of the circulatory system; Z80.0 Family history of malignant neoplasm of digestive organs; Z80.42 Family history of malignant neoplasm of prostate

== ENCOUNTER → 2017-10-21 | Outpatient (CLI) | payer OTHER ==
[~2017-10-21] MED LIST: CIPR-255 PO; DIPH25CA65 PO; LPT/40 PO; NAPR1TAB9 PO; NAPR500T3 PO; OMEP20CA9 PO
[2017-10-21 12:49] LABS: ALBUMIN 3.5 gm/dl (3.4-5.0); TOTAL PROTEIN 7.1 gm/dl (6.4-8.2)
== END | disposition home or self-care (01) ==
LOC: C.LAB 11:43
PROVIDERS: ATTEND Surgery
DX: K80.00 Calculus of gallbladder with acute cholecystitis without obstruction (principal)